=== PATIENT | male | born 1975 | race Caucasian/White ===

== ENCOUNTER 2016-07-16 08:25 | Inpatient (IN) | payer SELFPAY ==
[~2016-07-16] VITALS: Ht 167.6 cm; Wt 83.1 kg
[2016-07-16] MEDS: SODIUM CHLOR 0.9% 1000 ML INJ 1,000 ML IV SCH ×2 (03:40→12:51)
[2016-07-16 08:29] VITALS: BP 138/75; PULSE 99; RESP 20; TEMP 98.6; O2SAT 99
[2016-07-16] MEDS ORDERED: NOVOLOGMXP SQ (08:44)
[2016-07-16] MEDS ORDERED: DIPHTH/TETANUS/ACEL PERTUSSIS (BOOSTER) 0.5 ML VIAL/PFS IM ONE (09:15)
--- NOTE | 2016-07-16 09:21 | PD ---
HPI Chief Complaint: Injury Time Seen by Provider: 08:43 Travel History International Travel<30 days: No Contact w/Intl Traveler<30days: No Traveled to known affect area: No History of Present Illness HPI This is a 40-year-old man with a history of diabetes, previous right great toe amputation, presents emergent arm worsening right foot pain and swelling redness after stepping on a nail couple days ago. States about 4 days ago he stepped on a nail and when about a half centimeter or centimeter into his foot. He is visiting from [place]. Takes insulin for his diabetes states his blood sugars been about the 250s or so over the past couple days. He had fevers and chills last night. Over the past 2 days his nose worsening pain redness and swelling in the foot. History Past Medical History Narrative Medical Diabetes Tetanus Vaccination: Unknown Social History Alcohol Use: Yes (OCCASIONAL) Tobacco Use: No Allergies-Medications (Allergen,Severity, Reaction): Coded Allergies: No Known Allergies (Unverified , 07/16/16) Reported Meds & Prescriptions Reported Meds & Active Scripts Active Reported Novolog Mix 70-30 Inj (Insulin Aspart Prota 70%/Aspart 30%) 1,000 Unit/10 Ml Vial 15 Units SQ BIDAC Review of Systems Except as stated in HPI: all other systems reviewed are Neg Physical Exam Narrative GENERAL: 40-year-old man, nontoxic, no acute distress. SKIN: Warm and dry. HEAD: Atraumatic. Normocephalic. EYES: Pupils equal and round. No scleral icterus. No injection or drainage. ENT: No nasal bleeding or discharge. Mucous membranes pink and moist. NECK: Trachea midline. No JVD. CARDIOVASCULAR: Regular rate and rhythm. No murmur appreciated. RESPIRATORY: No accessory muscle use. Clear to auscultation. Breath sounds equal bilaterally. GASTROINTESTINAL: Abdomen soft, non-tender, nondistended. Hepatic and splenic margins not palpable. MUSCULOSKELETAL: Focused examination of the right lower extremity reveals diffuse erythema and swelling of the right foot around the dorsum of the foot and the base of the foot. He has had a right great toe amputation. There is a puncture wound near the area of the amputation scar with purulent drainage. Probing with a Q-tip shows that he can probe superficially under the skin about a centimeter or so toward the area of fluctuance. Does not appear to probe deep towards the bone. There is clear fluid easily expressed from the wound. There is a lot of generalized edema and swelling in the foot. Patient appears to have significant neuropathy and does not have much tenderness or pain. Foot is warm. NEUROLOGICAL: Awake and alert. No obvious cranial nerve deficits. Motor grossly within normal limits. Normal speech. PSYCHIATRIC: Appropriate mood and affect; insight and judgment normal. Data Data Last Documented VS Vital Signs Date Time Temp Pulse Resp B/P Pulse Ox O2 Delivery O2 Flow Rate FiO2 07/16/16 08:37 99 20 99 07/16/16 08:29 98.6 138/75 Orders Foot, Complete ([id number]) (07/16/16 ) Complete Blood Count With Diff (07/16/16 09:08) Comprehensive Metabolic Panel (07/16/16 09:08) Act Partial Throm Time (Ptt) (07/16/16 09:08) Prothrombin Time / Inr (Pt) (07/16/16 09:08) Iv Access Insert/Monitor (07/16/16 09:08) Westergren Sedimentation Rate (07/16/16 09:08) C-Reactive Protein (Crp) (07/16/16 09:08) Wound Culture And Gram Stain (07/16/16 09:08) Gkik-Sqs-Kylnmr (Booster) Inj (Boostrix (07/16/16 09:15) Acetaminophen (Tylenol) (07/16/16 10:00) Vancomycin Inj (Vancomycin Inj) (07/16/16 10:00) Piperacil-Tazo 4.5 Gm Premix (Zosyn 4.5 (07/16/16 10:00) Admit Order (Ed Use Only) (07/16/16 ) Labs Laboratory Tests Test 07/16/16 09:13 White Blood Count 10.1 TH/MM3 Red Blood Count 4.38 MIL/MM3 Hemoglobin 12.8 GM/DL Hematocrit 36.5 % Mean Corpuscular Volume 83.3 FL Mean Corpuscular Hemoglobin 29.1 PG Mean Corpuscular Hemoglobin 34.9 % Concent Red Cell Distribution Width 12.4 % Platelet Count 318 TH/MM3 Mean Platelet Volume 8.2 FL Neutrophils (%) (Auto) 64.7 % Lymphocytes (%) (Auto) 22.9 % Monocytes (%) (Auto) 10.6 % Eosinophils (%) (Auto) 0.9 % Basophils (%) (Auto) 0.9 % Neutrophils # (Auto) 6.5 TH/MM3 Lymphocytes # (Auto) 2.3 TH/MM3 Monocytes # (Auto) 1.1 TH/MM3 Eosinophils # (Auto) 0.1 TH/MM3 Basophils # (Auto) 0.1 TH/MM3 CBC Comment DIFF FINAL Differential Comment Erythrocyte Sedimentation Rate 71 mm/hr Prothrombin Time 10.0 SEC Prothromb Time International 0.9 RATIO Ratio Activated Partial 28.0 SEC Thromboplast Time Sodium Level 133 MEQ/L Potassium Level 4.1 MEQ/L Chloride Level 96 MEQ/L Carbon Dioxide Level 29.1 MEQ/L Anion Gap 8 MEQ/L Blood Urea Nitrogen 10 MG/DL Creatinine 0.86 MG/DL Estimat Glomerular Filtration 98 ML/MIN Rate Random Glucose 294 MG/DL Calcium Level 9.1 MG/DL Total Bilirubin 0.5 MG/DL Aspartate Amino Transf 14 U/L (AST/SGOT) Alanine Aminotransferase 28 U/L (ALT/SGPT) Alkaline Phosphatase 230 U/L C-Reactive Protein 21.00 MG/DL Total Protein 8.0 GM/DL Albumin 2.9 GM/DL [facility] Medical Decision Making Medical Screen Exam Complete: Yes Emergency Medical Condition: Yes Interpretation(s) CBC remarkable for mild anemia. Sedimentation rate 71. CMP unremarkable. CRP 21 Alkaline phosphatase 2:30 Coags unremarkable Right foot x-ray: Findings concerning for soft tissue infection or septicemia his emphysema swelling present. Possibly infectious with gas-forming organism was not excluded. Differential Diagnosis Infection, edema, osteomyelitis, other Narrative Course Medical decision making INITIAL: This Is a 40-year-old man who presents to the emergency department complaining of posterior wound with infection to the right foot, history of what seems to be pretty significant diabetes or previous dictations and neuropathy. Is a lot of erythema redness and swelling and he had fevers last night concerning for worsening infection. We'll check labs, inflammatory markers, x-ray, wound culture, reassess. FINAL: 40-year-old male with diabetic foot infection after stepping on a nail. Soft tissue gas is seen in the foot this seems to correspond with the probing wound. Time course is not suggestive of a necrotizing acute soft tissue infection. I called and spoke with podiatry, they will consult on the patient. We'll continue IV antibiotics. Diagnosis Primary Impression: Diabetic infection of right foot Admitting Information Admitting Physician Requests: Admit Juan R Soares MD Jul 16, 2016 09:21
[2016-07-16 09:23] LABS: AUTOMATED NEUTROPHIL # 6.5 TH/MM3 (1.8-7.7); BASOPHIL # 0.1 TH/MM3 (0-0.2); BASOPHIL % 0.9 % (0.0-2.0); EOSINOPHIL # 0.1 TH/MM3 (0-0.4); EOSINOPHIL % 0.9 % (0.0-4.0); HEMATOCRIT 36.5 % (39.0-51.0); HEMO FLAGS DIFF FINAL; LYMPH % 22.9 % (9.0-44.0); LYMPHOCYTE # 2.3 TH/MM3 (1.0-4.8); MEAN CELL VOLUME 83.3 FL (80.0-100.0); MEAN CORPUSCULAR HEMOGLOBIN 29.1 PG (27.0-34.0); MEAN CORPUSCULAR HGB CONC 34.9 % (32.0-36.0); MONO % 10.6 % (0.0-8.0); NEUT % 64.7 % (16.0-70.0); PLATELET COUNT 318 TH/MM3 (150-450); RED BLOOD COUNT 4.38 MIL/MM3 (4.50-5.90); RED CELL DISTRIBUTION WIDTH 12.4 % (11.6-17.2); WHITE BLOOD COUNT 10.1 TH/MM3 (4.0-11.0)
--- NOTE | 2016-07-16 09:35 | RADRPT ---
EXAM DATE/TIME: 07/16/2016 09:23 [facility] COMPARISON: No previous studies available for comparison. INDICATIONS : Right foot swelling, stepped on nail 5 days ago, swelling for 9 days. MEDICAL HISTORY : None. SURGICAL HISTORY : Great toe amputation 1 year ago. ENCOUNTER: Initial ACUITY: 1 week PAIN SCORE: 8/10 LOCATION: Right foot. FINDINGS: Bone density is normal. Joint space which are intact. Remote deformities of the second through fifth metatarsals are noted with exostoses present. Previous amputation of the first digit at the mid metat arsal level. There is soft tissue emphysema seen plantar aspect of the foot and soft tissue swelling. A punctate radiodensity within the plantar soft tissues is noted on the lateral view in this area me asuring 1.6 mm. The findings are concerning for soft tissue infection and the possibility of infectio n with gas-forming organism is not excluded. No evidence for osteitis. CONCLUSION: Findings are concerning for soft tissue infection with subcutaneous emphysema and swelling present. T he possibility of infection with gas-forming organism is not excluded. Jacinto Otto MD on July 16, 2016 at 9:32 Board Certified Radiologist. This report was verified electronically.
[2016-07-16 09:38] LABS: INTERNATIONAL NORMALIZED RATIO 0.9 RATIO
[2016-07-16 09:45] LABS: ANION GAP 8 MEQ/L (5-15); AST (GOT) 14 U/L (15-37); BICARBONATE 29.1 MEQ/L (21.0-32.0); BLOOD UREA NITROGEN 10 MG/DL (7-18); CHLORIDE 96 MEQ/L (98-107); GLOMERULAR FILTRATION RATE 98 ML/MIN (>89); POTASSIUM 4.1 MEQ/L (3.5-5.1); SODIUM (NA) 133 MEQ/L (136-145)
[2016-07-16 09:54] LABS: ALKALINE PHOSPHATASE 230 U/L (45-117); ALT (GPT) 28 U/L (12-78); TOTAL BILIRUBIN ADULT 0.5 MG/DL (0.2-1.0)
[2016-07-16] MEDS ORDERED: ACETAMINOPHEN 325 MG TAB PO ONE (10:00)
[2016-07-16] MEDS ORDERED: VANCOMYCIN INJ 1,000 MG in SODIUM CHLOR 0.9% 250 ML INJ 250 ML IV ONE (10:00)
[2016-07-16] MEDS ORDERED: PIPERACIL-TAZO 4.5 GM PREMIX 100 ML IV ONE (10:00)
--- NOTE | 2016-07-16 10:14 | HHI.HP ---
HPI Service Family Medicine Primary Care Physician No Primary Care Physician Admission Diagnosis diabetic foot infection Diagnoses: International Travel<30 Days: No Contact w/Intl Traveler<30days: No Known Affected Area: No History of Present Illness This is a 40 year old male with diabetes who presents 5 days after stepping on a nail in his right foot. He states the nail went into his foot about 0.5 inches. Since that time, he has taken ibuprofen prn for pain control; he did not seek care after stepping on the nail. The ibuprofen helped relieve his pain. However, yesterday, his pain became a sharp 10/10 constant pain. Additionally, he started having fevers and chills subjectively. He noted brownish fluid coming out of the puncture wound. Additionally, he has been having increased swelling. No n/v/d, chest pain, shortness of breath. He has had DM for over 10 years. He takes 15 U bid of 70/30 insulin. He states his sugar normally runs b/w 125-180. He had his right great toe amputated a few years ago b/c he had a work accident which caused an infection in his toe. He has good feeling in his feet. (Haider Mahoney MD R2) Review of Systems Constitutional: COMPLAINS OF: Fever, Chills Eyes: DENIES: Blurred vision, Diplopia Ears, nose, mouth, throat: DENIES: Tinnitus, Hearing loss Respiratory: DENIES: Cough, Shortness of breath Cardiovascular: DENIES: Chest pain, Palpitations Gastrointestinal: DENIES: Abdominal pain, Constipation, Diarrhea Genitourinary: DENIES: Urgency, Hematuria, Dysuria Neurologic: DENIES: Abnormal gait, Headache Psychiatric: DENIES: Anxiety, Confusion (Haider Mahoney MD R2) Past Family Social History Past Medical History DM Past Surgical History Right great toe amputation Reported Medications Reported Meds & Active Scripts Active Reported Novolog Mix 70-30 Inj (Insulin Aspart Prota 70%/Aspart 30%) 1,000 Unit/10 Ml Vial 15 Units SQ BIDAC (Haider Mahoney MD R2) Allergies: Coded Allergies: No Known Allergies (Unverified , 07/16/16) Active Ordered Medications Active Medications Acetaminophen (Tylenol) 650 mg Q4H PRN PO; Start 07/16/16 at 11:30 Acetaminophen 650 mg 650 mg ONCE ONCE PO Last administered on 07/16/16t 10:23; Admin Dose 650 MG; Start 07/16/16 at 10:00; Stop 07/16/16 at 10:01; Status DC Acetaminophen/ Hydrocodone Bitart ([place] 5-325 Mg) 1 tab Q4H PRN PO Last administered on 07/16/16 15:43; Admin Dose 1 TAB; Start 07/16/16 at 13:15 Acetaminophen/ Hydrocodone Bitart ([place] 5-325 Mg) 2 tab Q6H PRN PO; Start 07/16/16 at 13:15 Dextrose (D50w (Vial) Inj) 25 ml UNSCH PRN IV PUSH; Start 07/16/16 at 12:45 Diphtheria/ Tetanus/Acell Pertussis (Boostrix Inj) 0.5 ml ONCE ONCE IM Last administered on 07/16/16 09:33; Admin Dose 0.5 ML; Start 07/16/16 at 09:15; Stop 07/16/16 at 09:16; Status DC Glucagon (Glucagon Inj) 1 mg UNSCH PRN OTHER; Start 07/16/16 at 12:45 Insulin Detemir (Levemir Inj) 7 units Q12HR SQ; Start 07/16/16 at 21:00 IV Flush (NS Flush) 2 ml BID FLUSH; Start 07/16/16 at 21:00 IV Flush (NS Flush) 2 ml UNSCH PRN FLUSH; Start 07/16/16 at 11:30 Ketorolac Tromethamine (Toradol Inj) 30 mg Q6H PRN IVP Last administered on 07/16 15:48; Admin Dose 30 MG; Start 07/16/16 at 13:15; Stop 07/21/16 at 13:14 Miscellaneous Information SPECIFIC LAB TO BE VENU... ONCE ONCE XX; Start at 08:45; Stop 07/18/16 at 08:46 Morphine Sulfate (Morphine Inj) 2 mg Q3H PRN IV PUSH; Start 07/16/16 at 13:15 Naloxone HCl (Narcan Inj) 0.4 mg UNSCH PRN IV; Start 07/16/16 at 13:15; Stop 07/16/16 at 13:24; Status DC Naloxone HCl 0.4 mg 0.4 mg UNSCH PRN IV; Start 07/16/16 at 11:30 Ondansetron HCl (Zofran Inj) 4 mg Q6H PRN IVP; Start 07/16/16 at 11:30 Pharmacy Profile Note 0 ml @ 0 mls/hr UNSCH OTHER; Start 07/16/16 at 11:30 Piperacillin Sod/ Tazobactam Sod 50 ml @ 100 mls/hr Q6H IV; Start 07/16/16 at 18 :00 Piperacillin Sod/ Tazobactam Sod 100 ml @ 200 mls/hr ONCE ONCE IV Last administered on 07/16/16 10:00; Admin Dose 200 MLS/HR; Start 07/16/16 at 10:00; Stop 07/16/16 at 10:29; Status DC Sodium Chloride (NS 1000 ml Inj) 1,000 ml @ 100 mls/hr Q10H IV Last administered on 07/16/16 12:51; Admin Dose 100 MLS/HR; Start 07/16/16 at 12:00 Vancomycin HCl 1000 mg/Sodium Chloride 250 ml @ 250 mls/hr ONCE ONCE IV Last administered on 07/16/16 10:24; Admin Dose 250 MLS/HR; Start 07/16/16 at 10:00; Stop 07/16/16 at 10:59; Status DC Vancomycin HCl/ Sodium Chloride (Vancomycin Inj/ NS 250 ml Inj) 262.5 ml @ 262.5 mls/ hr Q12H IV; Start 07/16/16 at 21:00 Family History Mom: DM Dad: healthy Children: healthy Social History Tobacco: never Alcohol: 2 beers a week Works for [employer]. Lives with and 3 kids. Lives in [place], will be here for 1 month. (Haider Mahoney MD R2) Physical Exam Vital Signs Vital Signs Date Time Temp Pulse Resp B/P Pulse Ox O2 Delivery O2 Flow Rate FiO2 07/16/16 08:37 99 20 99 07/16/16 08:29 98.6 99 20 138/75 99 Physical Exam GENERAL: This is a well-nourished, well-developed patient, in no apparent distress. SKIN: Right foot swollen, hot, 1 cm opening under first metatarsal of right foot. Non erythematous, but it is draining slightly. HEAD: Atraumatic. Normocephalic. No temporal or scalp tenderness. EYES: Pupils equal round and reactive. Extraocular motions intact. No scleral icterus. No injection or drainage. ENT: Nose without bleeding, purulent drainage or septal hematoma. Throat without erythema, tonsillar hypertrophy or exudate. Uvula midline. Airway patent. NECK: Trachea midline. No JVD or lymphadenopathy. Supple, nontender, no meningeal signs. CARDIOVASCULAR: Regular rate and rhythm without murmurs, gallops, or rubs. RESPIRATORY: Clear to auscultation. Breath sounds equal bilaterally. No wheezes , rales, or rhonchi. GASTROINTESTINAL: Abdomen soft, non-tender, nondistended. No hepato-splenomegaly , or palpable masses. No guarding. MUSCULOSKELETAL: Extremities without clubbing, cyanosis, or edema. No joint tenderness, effusion, or edema noted. No calf tenderness. Negative Homans sign bilaterally. NEUROLOGICAL: Awake and alert. Cranial nerves II through XII intact. Motor and sensory grossly within normal limits. Five out of 5 muscle strength in all muscle groups. Normal speech. Laboratory Laboratory Tests Test 07/16/16 09:13 White Blood Count 10.1 Red Blood Count 4.38 Hemoglobin 12.8 Hematocrit 36.5 Mean Corpuscular Volume 83.3 Mean Corpuscular Hemoglobin 29.1 Mean Corpuscular Hemoglobin 34.9 Concent Red Cell Distribution Width 12.4 Platelet Count 318 Mean Platelet Volume 8.2 Neutrophils (%) (Auto) 64.7 Lymphocytes (%) (Auto) 22.9 Monocytes (%) (Auto) 10.6 Eosinophils (%) (Auto) 0.9 Basophils (%) (Auto) 0.9 Neutrophils # (Auto) 6.5 Lymphocytes # (Auto) 2.3 Monocytes # (Auto) 1.1 Eosinophils # (Auto) 0.1 Basophils # (Auto) 0.1 CBC Comment DIFF FINAL Differential Comment Erythrocyte Sedimentation Rate 71 Prothrombin Time 10.0 Prothromb Time International 0.9 Ratio Activated Partial 28.0 Thromboplast Time Sodium Level 133 Potassium Level 4.1 Chloride Level 96 Carbon Dioxide Level 29.1 Anion Gap 8 Blood Urea Nitrogen 10 Creatinine 0.86 Estimat Glomerular Filtration 98 Rate Random Glucose 294 Calcium Level 9.1 Total Bilirubin 0.5 Aspartate Amino Transf 14 (AST/SGOT) Alanine Aminotransferase 28 (ALT/SGPT) Alkaline Phosphatase 230 C-Reactive Protein 21.00 Total Protein 8.0 Albumin 2.9 Date/Time Procedure Status Source Growth 07/16/16 09:30 Gram Stain Received Wound Foot Pending 07/16/16 09:30 Wound Culture Received Wound Foot Pending (Haider Mahoney MD R2) Result Diagram: 07/16/1613 07/16/1613 Assessment and Plan Assessment and Plan 40 year old male with DM who presents after stepping on a nail 5 days ago. He will be admitted for podiatry consult, IV abx, pain management Code Status full Discussed Condition With Dr. Astrid Tristan (Haider Mahoney MD R2) Attending Attestation Patient seen and examined. Case reviewed and discussed with the resident team. Agree with plan of care as discussed with me and documented in the resident note. (Astrid Mahoney MD) Problem List: (1) Diabetic infection of right foot Status: Acute Plan: Case discussed with podiatry (Dr. Ramirez) by the ER doctor. -Podiatry consulted (Dr. Ramirez) -Tetanus vaccine given -Continue Vanc and zosyn (started /) -Repeat labs in AM -Pain control: toradol 30 mg q6 scheduled; norco 1 tab PO pain 1-5; norco 2 tabs PO pain 6-10; morphine 2 mg breakthrough pain -Wound cultures pending (2) Diabetes Status: Acute Plan: Random glucose of 294; likely patient has poor glucose control although he states his sugars are normally 125-[address] levemir 7 U q12 hours Sliding scale insulin (3) FEN/PPX Status: Acute Plan: Fluids: NS at 100 ml/hr Electrolytes: monitor and replace prn Nutrition: diabetic diet PPX: bilateral SCDs (Haider Mahoney MD R2) Physician Certification 2 Midnight Certification Type: Admission for Inpatient Services Order for Inpatient Services The services are ordered in accordance with Medicare regulations or non- Medicare payer requirements, as applicable. In the case of services not specified as inpatient-only, they are appropriately provided as inpatient services in accordance with the 2-midnight benchmark. Estimated LOS (days): 2 days is the estimated time the patient will need to remain in the hospital, assuming treatment plan goals are met and no additional complications. Post-Hospital Plan: Home (Haider Mahoney MD R2) Problem Qualifiers (1) Diabetes: Qualified Code: E11.8 - Type 2 diabetes mellitus with complication, with long- term current use of insulin Haider Mahoney MD R2 Jul 16, 2016 10:13 Astrid Mahoney MD Jul 17, 2016 08:00
[2016-07-16 11:20] VITALS: BP 125/72; PULSE 91; RESP 18; O2SAT 96
[2016-07-16] MEDS ORDERED: ACETAMINOPHEN 325 MG TAB PO PRN (11:30)
[2016-07-16] MEDS ORDERED: NALOXONE HCL 0.4 MG/ML AMP IV PRN ×2 (11:30→13:15)
[2016-07-16] MEDS ORDERED: SODIUM CHLORIDE 0.9% FLUSH 5 ML FLUSH FLUSH PRN (11:30)
[2016-07-16] MEDS ORDERED: Vancomycin Consult Pharmacy 1 EA OTHER SCH (11:30)
--- NOTE | 2016-07-16 11:32 | HHI.FPPN ---
Subjective Remarks Pt. seen, examined and discussed with Drs. Mahoney and Kun. 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 He stepped on a nail puncturing his right foot, plantar surface and the distal right 1st metacarpal 5 days prior to admission. His pain was doing okay with ibuprofen but the last 2 days he had worse pain and drainage from the wound. Unable to walk, due to pain. When admitted to ED, pain 10:10, now 6:10. He was having fever and chills as well. One year ago he had an injury to his right great toe and this resulted in amputation. Tetanus shot one year ago. See H&P for this admission for additional details of past, family and social history. complete review of systems was obtained, and he has the pain in the right foot as noted, plus discomfort in the right shoulder for 2 days with ABduction, otherwise all systems negative. He is , lives with his and 3 kids. Strong family history of diabetes in mom, uncles, brother, dad is healthy. Nonsmoker, infrequent etoh, full code. Objective Vitals Vital Signs Date Time Temp Pulse Resp B/P Pulse Ox O2 Delivery O2 Flow Rate FiO2 07/16/16 08:37 99 20 99 07/16/16 08:29 98.6 99 20 138/75 99 Result Diagram: 07/16/16 0913 07/16/16 0913 Other Results Laboratory Tests Test 07/16/16 09:13 White Blood Count 10.1 TH/MM3 Red Blood Count 4.38 MIL/MM3 Hemoglobin 12.8 GM/DL Hematocrit 36.5 % Mean Corpuscular Volume 83.3 FL Mean Corpuscular Hemoglobin 29.1 PG Mean Corpuscular Hemoglobin 34.9 % Concent Red Cell Distribution Width 12.4 % Platelet Count 318 TH/MM3 Mean Platelet Volume 8.2 FL Neutrophils (%) (Auto) 64.7 % Lymphocytes (%) (Auto) 22.9 % Monocytes (%) (Auto) 10.6 % Eosinophils (%) (Auto) 0.9 % Basophils (%) (Auto) 0.9 % Neutrophils # (Auto) 6.5 TH/MM3 Lymphocytes # (Auto) 2.3 TH/MM3 Monocytes # (Auto) 1.1 TH/MM3 Eosinophils # (Auto) 0.1 TH/MM3 Basophils # (Auto) 0.1 TH/MM3 CBC Comment DIFF FINAL Differential Comment Erythrocyte Sedimentation Rate 71 mm/hr Prothrombin Time 10.0 SEC Prothromb Time International 0.9 RATIO Ratio Activated Partial 28.0 SEC Thromboplast Time Sodium Level 133 MEQ/L Potassium Level 4.1 MEQ/L Chloride Level 96 MEQ/L Carbon Dioxide Level 29.1 MEQ/L Anion Gap 8 MEQ/L Blood Urea Nitrogen 10 MG/DL Creatinine 0.86 MG/DL Estimat Glomerular Filtration 98 ML/MIN Rate Random Glucose 294 MG/DL Calcium Level 9.1 MG/DL Total Bilirubin 0.5 MG/DL Aspartate Amino Transf 14 U/L (AST/SGOT) Alanine Aminotransferase 28 U/L (ALT/SGPT) Alkaline Phosphatase 230 U/L C-Reactive Protein 21.00 MG/DL Total Protein 8.0 GM/DL Albumin 2.9 GM/DL Imaging Concerning for gas-forming organism, subcutaneous emphysema. Objective Remarks O. CONSTITUTIONAL/GEN: normally nourished, in some distress feeling pain 6:10 and chilled. EYES: conjunctiva normal, PERRLA, EOMI. ENT: Mouth and pharynx normal. NECK: thyroid midline, neck supple LUNGS: clear A-P, respiratory effort is normal. CARDIOVASCULAR: RR without murmur or gallop. No significant edema. GI/ABD: soft without masses, without organomegaly. BS+ : no CVA tenderness NEURO: No focal deficits. SKIN: color normal, no rashes noted. HEME/LYMPH: no bruising, petechia or significant adenopathy MUSC: back is normal in appearance. Right great toe surgically absent, significant swelling of the forefoot, +DP pulse, draining wound ball of the foot , ecchymosis of the forefoot. PSYCH/MENTAL STATUS: Alert and oriented x 3. A/P Assessment and Plan 40 yo male with puncture wound right foot 5 days ago, now with swelling , pain, drainage. Concern for gas-forming organism. Attending Attestation Patient seen and examined. Case reviewed and discussed with the resident team. Agree with plan of care as discussed with me and documented in the resident note. Astrid Mahoney MD Jul 16, 2016 11:32
--- NOTE | 2016-07-16 12:19 | PD.POD.CON ---
Patient Intake Chief Complaint Diabetic foot infection right foot Consult Requested by Dr. Astrid Mahoney Reason for Consult Evaluation and treatment of infected right foot Primary Care Physician No Primary Care Physician History of Present Illness Patient is a 40-year-old diabetic male visiting from [place]. 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 Approximate 5 days ago while walking on the beach she stepped on a nail. The foot became swollen and red and he presented to [place] this morning with an infected right foot. 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 States his blood sugars usually run pretty well. He was barefoot walking on the beach. Coded Allergies: No Known Allergies (Unverified , 07/16/16) Preferred Language to Discuss: Lithuanian Barriers to Learning: None Teaching Method: Discussion Vital Signs Date Time Temp Pulse Resp B/P Pulse Ox O2 Delivery O2 Flow Rate FiO2 07/16/16 11:20 91 18 125/72 96 Room Air 07/16/16 08:37 99 20 99 07/16/16 08:29 98.6 99 20 138/75 99 Pain scale used: 0-10 numeric scale Pain score: 2 Medications Current Medications Diphtheria/ Tetanus/Acell Pertussis (Boostrix Inj) 0.5 ml ONCE ONCE IM Last administered on 07/16/16 09:33; Start 07/16/16 at 09:15; Stop 07/16/16 at 09:16; Status DC Acetaminophen 650 mg 650 mg ONCE ONCE PO Last administered on 07/16/16 10:23; Start 07/16/16 at 10:00; Stop 07/16/16 at 10:01; Status DC Vancomycin HCl 1000 mg/Sodium Chloride 250 ml @ 250 mls/hr ONCE ONCE IV Last administered on 07/16/16 10:24; Start 07/16/16 at 10:00; Stop 07/16/16 at 10:59; Status DC Piperacillin Sod/ Tazobactam Sod 100 ml @ 200 mls/hr ONCE ONCE IV Last administered on 07/16/16 10:00; Start 07/16/16 at 10:00; Stop 07/16/16 at 10:29; Status DC Sodium Chloride (NS 1000 ml Inj) 1,000 ml @ 100 mls/hr Q10H IV ; Start 07/16/16 at 12:00 IV Flush (NS Flush) 2 ml UNSCH PRN FLUSH FLUSH AFTER USING IV ACCESS; Start 07/16/16 at 11:30 IV Flush (NS Flush) 2 ml BID FLUSH ; Start 07/16/16 at 21:00 Acetaminophen (Tylenol) 650 mg Q4H PRN PO TEMP>100.4F,PAIN1-10,IRRITABLE; Start 07/16/16 at 11:30 Ondansetron HCl (Zofran Inj) 4 mg Q6H PRN IVP NAUSEA OR VOMITING; Start at 11:30 Naloxone HCl 0.4 mg 0.4 mg UNSCH PRN IV SEE LABEL COMMENTS; Start 07/16/16 at 11 :30 Piperacillin Sod/ Tazobactam Sod 50 ml @ 100 mls/hr Q6H IV ; Start 07/16/16 at 18:00 Pharmacy Profile Note 0 ml @ 0 mls/hr UNSCH OTHER ; Start 07/16/16 at 11:30 Vancomycin HCl/ Sodium Chloride (Vancomycin Inj/ NS 250 ml Inj) 262.5 ml @ 262.5 mls/ hr Q12H IV ; Start 07/16/16 at 21:00 Miscellaneous Information SPECIFIC LAB TO BE ONCE ONCE XX ; Start at 08:45; Stop 07/18/16 at 08:46 Past, Family & Social History Past Medical History PFSH Reviewed: Yes Endocrine: REPORTS HX OF: Diabetes mellitus Neurologic: REPORTS HX OF: Peripheral neuropathy Past Surgical History Musculoskeletal: REPORTS HX OF: Other musculoskeletal srg (right hallux amputation) Review of Systems Constitutional: COMPLAINS OF: Fever Musculoskeletal: COMPLAINS OF: Deformaties Neurological: COMPLAINS OF: Numbness/tingling, Changes in sensation, Difficulty with balance Exam-Podiatry Constitutional General appearance: comfortable Nutritional status: overweight Orientation: alert and oriented x3 Dermatological Exam Skin Temp - Right: Hot Skin Texture - Right: Within Normal Limits Skin Elasticity - Right: Within Normal Limits Skin Tugor - Right: Within Normal Limits Hair Growth - Right: Absent Pigmentation - Right: Within Normal Limits Skin Temp - Left: Within Normal Limits Skin Texture - Left: Within Normal Limits Skin Elasticity - Left: Within Normal Limits Skin Tugor - Left: Within Normal Limits Hair Growth - Left: Absent Pigmentation - Left: Within Normal Limits Ulcers: Location/Measurements 1 cm opening under the first metatarsal of the right foot. It does probe to bone. There is some odor with serous drainage coming from the wound. Culture and sensitivity is pending. Vascular/Lymphatic Exam R Dorsails Pedis: Palpable L Dorsails Pedis: Palpable R Posterior Tibial: Palpable L Posterior Tibial: Palpable Neurologic Exam Present on right: Tingling, Paraesthesia Present on left: Tingling, Paraesthesia Sensation: Light touch: Dimished Pinprick: Dimished Proprioception: Dimished Vibratory: Dimished Musculoskeletal Exam Details Right hallux amputation Muscle Strength Dorsiflexion (Right): Normal Plantarflexion (Right): Normal Inversion (Right): Normal Eversion (Right): Normal Digital (Right): Normal Dorsiflexion (Left): Normal Plantarflexion (Left): Normal Inversion (Left): Normal Eversion (Left): Normal Digital (Left): Normal Foot Range of Motion Dorsiflexion (Right): Normal Plantarflexion (Right): Normal Inversion (Right): Normal Eversion (Right): Normal Digital (Right): Normal Dorsiflexion (Left): Normal Plantarflexion (Left): Normal Inversion (Left): Normal Eversion (Left): Normal Digital (Left): Normal Extremities Edema: Left lower extremity: none Right lower extremity: 2+, nonpitting, foot Lab and Radiology Results Laboratory Laboratory Tests Test 07/16/16 09:13 White Blood Count 10.1 TH/MM3 Red Blood Count 4.38 MIL/MM3 Hemoglobin 12.8 GM/DL Hematocrit 36.5 % Mean Corpuscular Volume 83.3 FL Mean Corpuscular Hemoglobin 29.1 PG Mean Corpuscular Hemoglobin 34.9 % Concent Red Cell Distribution Width 12.4 % Platelet Count 318 TH/MM3 Mean Platelet Volume 8.2 FL Neutrophils (%) (Auto) 64.7 % Lymphocytes (%) (Auto) 22.9 % Monocytes (%) (Auto) 10.6 % Eosinophils (%) (Auto) 0.9 % Basophils (%) (Auto) 0.9 % Neutrophils # (Auto) 6.5 TH/MM3 Lymphocytes # (Auto) 2.3 TH/MM3 Monocytes # (Auto) 1.1 TH/MM3 Eosinophils # (Auto) 0.1 TH/MM3 Basophils # (Auto) 0.1 TH/MM3 CBC Comment DIFF FINAL Differential Comment Erythrocyte Sedimentation Rate 71 mm/hr Laboratory Tests Test 07/16/16 09:13 Sodium Level 133 MEQ/L Potassium Level 4.1 MEQ/L Chloride Level 96 MEQ/L Carbon Dioxide Level 29.1 MEQ/L Anion Gap 8 MEQ/L Blood Urea Nitrogen 10 MG/DL Creatinine 0.86 MG/DL Estimat Glomerular Filtration 98 ML/MIN Rate Random Glucose 294 MG/DL Calcium Level 9.1 MG/DL Total Bilirubin 0.5 MG/DL Aspartate Amino Transf 14 U/L (AST/SGOT) Alanine Aminotransferase 28 U/L (ALT/SGPT) Alkaline Phosphatase 230 U/L C-Reactive Protein 21.00 MG/DL Total Protein 8.0 GM/DL Albumin 2.9 GM/DL Microbiology Date/Time Procedure Status Source Growth 07/16/16 09:30 Gram Stain Received Wound Foot Pending 07/16/16 09:30 Wound Culture Received Wound Foot Pending Assessment/Plan Problem List: (1) Diabetic infection of right foot Status: Acute (2) Diabetes type 2, uncontrolled Status: Chronic Additional Plans & Procedures PLAN: Ordered Maxorb extra AG dressings with packing for to right foot wound. No baths or showers. Sponge bathe only. PT for crutch training or walker training nonweightbearing right foot. Nuclear med bone scan and right foot Problem Qualifiers (1) Diabetes type 2, uncontrolled: Qualified Code: E11.42 - Uncontrolled type 2 diabetes mellitus with diabetic polyneuropathy, with long-term current use of insulin Himanshu Ramirez DPM Jul 16, 2016 12:18
[2016-07-16] MEDS ORDERED: GLUCAGON 1 MG/ML VIAL OTHER PRN (12:45)
[2016-07-16] MEDS ORDERED: DEXTROSE 50% IN WATER 50 ML VIAL(D50) IV PUSH PRN (12:45)
[2016-07-16] MEDS ORDERED: ACETAMINOPHEN/HYDROcodone 325 MG/5 MG TAB PO PRN (13:15)
[2016-07-16] MEDS ORDERED: KETOROLAC TROMETHAMINE 30 MG/ML (IVP) VIAL IVP PRN (13:15)
[2016-07-16] MEDS ORDERED: MORPHINE SULFATE 8 MG/ML INJ IV PUSH PRN (13:15)
[2016-07-16 15:54] VITALS: BP 142/97; PULSE 94; RESP 20; TEMP 98.4; O2SAT 95
[2016-07-16] MEDS: INSULIN ASPART SUPPLEMENTAL SCALE SQ SCH ×2 (17:17→20:39)
[2016-07-16] MEDS: PIPERACIL-TAZO 3.375 GM PREMIX 50 ML IV SCH ×2 (17:17→23:18)
[2016-07-16 20:00] VITALS: BP 119/72; PULSE 91; RESP 16; TEMP 98.2; O2SAT 97
[2016-07-16] MEDS: SODIUM CHLORIDE 0.9% FLUSH 5 ML FLUSH FLUSH SCH (20:37)
[2016-07-16] MEDS: VANCOMYCIN INJ 1,250 MG in SODIUM CHLOR 0.9% 250 ML INJ 250 ML IV SCH (20:38)
[2016-07-16] MEDS: INSULIN DETEMIR 100 UNITS/ML VIAL SQ SCH (20:39)
[2016-07-16] MEDS: ACETAMINOPHEN/HYDROcodone 325 MG/5 MG TAB PO PRN (20:45)
[2016-07-16] MEDS: KETOROLAC TROMETHAMINE 30 MG/ML (IVP) VIAL IVP SCH (21:49)
[2016-07-17] VITALS: BP 98/60; PULSE 89; RESP 16; TEMP 97.9; O2SAT 97
[2016-07-17] MEDS: KETOROLAC TROMETHAMINE 30 MG/ML (IVP) VIAL IVP SCH ×4 (03:40→22:17)
[2016-07-17] MEDS: ACETAMINOPHEN/HYDROcodone 325 MG/5 MG TAB PO PRN ×3 (03:40→17:09)
[2016-07-17 04:00] VITALS: BP 126/86; PULSE 78; RESP 16; TEMP 98; O2SAT 97
[2016-07-17] MEDS: PIPERACIL-TAZO 3.375 GM PREMIX 50 ML IV SCH ×4 (05:47→23:41)
[2016-07-17] MEDS: INSULIN ASPART SUPPLEMENTAL SCALE SQ SCH ×4 (05:58→20:28)
[2016-07-17 07:53] LABS: AUTOMATED NEUTROPHIL # 6.8 TH/MM3 (1.8-7.7); BASOPHIL # 0.1 TH/MM3 (0-0.2); BASOPHIL % 0.6 % (0.0-2.0); EOSINOPHIL # 0.2 TH/MM3 (0-0.4); HEMATOCRIT 33.1 % (39.0-51.0); HEMO FLAGS DIFF FINAL; LYMPH % 23.8 % (9.0-44.0); LYMPHOCYTE # 2.5 TH/MM3 (1.0-4.8); MEAN CELL VOLUME 83.7 FL (80.0-100.0); MEAN CORPUSCULAR HEMOGLOBIN 28.5 PG (27.0-34.0); MEAN CORPUSCULAR HGB CONC 34.1 % (32.0-36.0); MONO % 8.6 % (0.0-8.0); PLATELET COUNT 310 TH/MM3 (150-450); RED BLOOD COUNT 3.95 MIL/MM3 (4.50-5.90); RED CELL DISTRIBUTION WIDTH 12.3 % (11.6-17.2); WHITE BLOOD COUNT 10.5 TH/MM3 (4.0-11.0)
[2016-07-17 08:00] VITALS: BP 113/80; PULSE 74; RESP 18; TEMP 96.9; O2SAT 96
[2016-07-17 08:17] LABS: BICARBONATE 29.5 MEQ/L (21.0-32.0); POTASSIUM 3.9 MEQ/L (3.5-5.1)
[2016-07-17] MEDS: INSULIN DETEMIR 100 UNITS/ML VIAL SQ SCH ×2 (09:00→20:29)
[2016-07-17] MEDS: SODIUM CHLORIDE 0.9% FLUSH 5 ML FLUSH FLUSH SCH ×2 (09:00→20:29)
[2016-07-17] MEDS: VANCOMYCIN INJ 1,250 MG in SODIUM CHLOR 0.9% 250 ML INJ 250 ML IV SCH ×2 (09:14→20:28)
--- NOTE | 2016-07-17 10:13 | HHI.FPPN ---
Subjective Remarks No acute events overnight. Afebrile, vital signs stable. Patient does not complain of pain in his foot. He continues to complain of pain in his right shoulder with abduction. (Cordelia Gutierrez MD R3) Objective Vitals Vital Signs Date Time Temp Pulse Resp B/P Pulse Ox O2 Delivery O2 Flow Rate FiO2 07/17/16 08:00 96.9 74 18 113/80 96 07/17/16 04:00 98.0 78 16 126/86 97 07/17/16 00:00 97.9 89 16 98/60 97 07/16/16 20:00 98.2 91 16 119/72 97 07/16/16 15:54 98.4 94 20 142/97 95 07/16/16 12:50 18 07/16/16 11:20 91 18 125/72 96 Room Air I/O 07/16/16 07/16/16 07/16/16 07/17/16 07/17/16 07/17/16 07:00 15:00 23:00 07:00 15:00 23:00 Intake Total 1660 ml Balance 1660 ml Intake Oral 240 ml IV Total 1420 ml # Voids 1 2 (Cordelia Gutierrez MD R3) Result Diagram: 07/17/16 0631 07/17/16 0631 Objective Remarks Gen.: No acute distress Head: Normocephalic. Atraumatic. EENT: Pupils equal round and reactive to light. Nose without drainage. Airway intact. Throat without injection. Cardiovascular: Regular rate and rhythm. No murmurs, rubs or gallops. Respiratory: Lungs clear to auscultation bilaterally. No wheezes or rhonchi. Abdomen: Soft, nontender, nondistended. No peritoneal signs. Musculoskeletal: No gross deformities. No edema. Surgical absence of right great toe. Wound on right foot dressed, dressing clean/dry/intact. Skin: No obvious rashes or erythema. Neuro: Sensory and motor grossly intact. Cranial nerves II through XII grossly intact. Psych: Appropriate mood and affect (Cordelia Gutierrez MD R3) A/P Assessment and Plan 40 yo male with puncture wound right foot 5 days ago, now with swelling , pain, drainage. Discharge Planning Pending podiatry recommendations (Cordelia Gutierrez MD R3) Attending Attestation Patient seen and examined. Case reviewed and discussed with the resident team. Agree with plan of care as discussed with me and documented in the resident note. (Astrid Mahoney MD) Problem List: (1) Diabetic infection of right foot Status: Acute Plan: Case discussed with podiatry (Dr. Ramirez) by the ER doctor. -Podiatry consulted (Dr. Ramirez) -Tetanus vaccine given -Continue Vanc and zosyn (started 1/2) -Pain control: toradol 30 mg q6 scheduled; norco 1 tab PO pain 1-5; norco 2 tabs PO pain 6-10; morphine 2 mg breakthrough pain -Wound cultures pending -Gram stain of wound shows many gram-positive cocci in pairs and chains with moderate gram-negative rods -WBC scan significant for osteomyelitis, awaiting Podiatry recommendations (2) Shoulder pain Status: Acute Plan: Patient with right shoulder pain on abduction. He believes it may be from the way that he sleeps. Shoulder x-ray pending (3) Diabetes Status: Acute Plan: Random glucose of 289; likely patient has poor glucose control although he states his sugars are normally 125-180 Increase Levemir to 10 units every 12 hours Sliding scale insulin (4) FEN/PPX Status: Acute Plan: Fluids: Hep-Lock IV Electrolytes: monitor and replace prn Nutrition: diabetic diet PPX: bilateral SCDs (Cordelia Gutierrez MD R3) Problem Qualifiers (1) Diabetes: Qualified Code: E11.8 - Type 2 diabetes mellitus with complication, with long- term current use of insulin Cordelia Gutierrez MD R3 Jul 17, 2016 10:12 Astrid Mahoney MD Jul 17, 2016 14:19
[2016-07-17 12:48] VITALS: BP 133/83; PULSE 100; RESP 20; TEMP 98.7; O2SAT 98
--- NOTE | 2016-07-17 13:01 | RADRPT ---
EXAM DATE/TIME: 07/16/2016 14:46 [facility] COMPARISON: No previous studies available for comparison. INDICATIONS : Osteomyelitis of right foot. Right foot swelling after stepping on a nail five days ago. DOSE: 20.2 mCi Tc99m Ceretec labeled white blood cells IV SPECT IMAGIN hrs, 20 hrs IMAGNG: SPECT/CT imaging with fusion was performed. RADIATION DOSE: 4.46 CTDIvol (mGy) ; Multiple Day Study MEDICAL HISTORY : Diabetes mellitus type 2. SURGICAL HISTORY : Right hallux amputation. ENCOUNTER: Initial ACUITY: 4 - 6 days PAIN SCALE: 6/10 LOCATION: Right foot. TECHNIQUE: Following the in vitro labeling of autologous white cells and reinjection, whole body scan was perfor med at the specified times. SPECT imaging was performed at the specified time in sagittal, axial and coronal planes. Attenuation correction was performed with the computed tomography and both the atten uation correction and non-attenuation corrected data sets were reviewed. FINDINGS: CT images reveal air within the marrow cavity of the remaining first metatarsal as well as air within the soft tissues of the medial foot near the site of amputation. There is abnormal white blood cell accumulation within the marrow cavity of the first metatarsal and in the adjacent soft tissues charac teristic of osteomyelitis and cellulitis of the medial right foot and first metatarsal. There is some mild white blood cell activity around a chronic healing fracture of the proximal second metatarsal a nd around some degenerative change in the left foot. No drainable abscess is identified. CONCLUSION: 1. Abnormal air in both the soft tissues of the medial right foot and within the marrow cavity of the first metatarsal which has been amputated distally. There is intense white blood cell activity in th e medial right foot and first metatarsal. The findings are characteristic of osteomyelitis of the ent minor remaining first metatarsal and adjacent cellulitis. 2. Iefn-jz-dvryxbuj white blood cell activity is also present around a chronic healing fracture of th e proximal second metatarsal. Molina Ferrell MD on July 17, 2016 at 12:48 Board Certified Radiologist. This report was verified electronically.
--- NOTE | 2016-07-17 13:18 | PD.PN.STU ---
Subjective Remarks No new complaints overnight. He states he has no pain in his foot currently. He does note to have some continued discomfort in his right shoulder with abduction. Objective Vitals Vital Signs Date Time Temp Pulse Resp B/P Pulse Ox O2 Delivery O2 Flow Rate FiO2 07/17/16 08:00 96.9 74 18 113/80 96 07/17/16 04:00 98.0 78 16 126/86 97 07/17/16 00:00 97.9 89 16 98/60 97 07/16/16 20:00 98.2 91 16 119/72 97 07/16/16 15:54 98.4 94 20 142/97 95 I/O 07/16/16 07/16/16 07/16/16 07/17/16 07/17/16 07/17/16 06:59 14:59 22:59 06:59 14:59 22:59 Intake Total 1660 ml 480 ml Balance 1660 ml 480 ml Intake Oral 240 ml 480 ml IV Total 1420 ml # Voids 1 2 1 Result Diagram: 07/17/16 0631 07/17/16 0631 Other Results Laboratory Tests Test 07/16/16 07/17/16 09:13 06:31 Red Blood Count 4.38 MIL/MM3 3.95 MIL/MM3 (4.50-5.90) (4.50-5.90) Hemoglobin 12.8 GM/DL 11.3 GM/DL (13.0-17.0) (13.0-17.0) Hematocrit 36.5 % 33.1 % (39.0-51.0) (39.0-51.0) Monocytes (%) (Auto) 10.6 % 8.6 % (0.0-8.0) (0.0-8.0) Monocytes # (Auto) 1.1 TH/MM3 (0-0.9) Erythrocyte Sedimentation Rate 71 mm/hr (0-15) Sodium Level 133 MEQ/L 135 MEQ/L (136-145) (136-145) Chloride Level 96 MEQ/L 97 MEQ/L (98-107) (98-107) Random Glucose 294 MG/DL 289 MG/DL (74-106) (74-106) Aspartate Amino Transf 14 U/L (15-37) (AST/SGOT) Alkaline Phosphatase 230 U/L (45-117) C-Reactive Protein 21.00 MG/DL (0.00-0.30) Albumin 2.9 GM/DL (3.4-5.0) Imaging WBC Spect scan shows "abnormal air in soft tissue and marrow cavity" "WBC activity in remaining first metatarsal and adjacent cellulitis" "moderate WBC activity around chronic healing fracture of second metatarsal" Last 48 hours Impressions Foot X-Ray 07/16/16 0000 Signed Impressions: Service Date/Time: Saturday, July 16, 2016 09:23 - CONCLUSION: Findings are concerning for soft tissue infection with subcutaneous emphysema and swelling present. The possibility of infection with gas-forming organism is not excluded. Jacinto Otto MD A/P Assessment and Plan 1. Osteomyelitis - continue antibiotic regimen -seen by podiatry, who recommended dressings, nonweightbearing, and keeping foot dry - nuclear imaging shows increased WBC activity in bone and surrounding tissue 2. Diabetes type 2, insulin dependent - increase to Levemir 10units every 12 hours - continue sliding scale Novolog 3. Shoulder pain - X-ray pending Discharge Planning Patient seen and examined. Case reviewed and discussed with the resident team. Agree with plan of care as discussed with me and documented in the resident note. Sheron John Jul 17, 2016 13:18 Astrid Mahoney MD Jul 17, 2016 14:37
[2016-07-17 16:00] VITALS: BP 136/85; PULSE 94; RESP 20; TEMP 97.2; O2SAT 95
--- NOTE | 2016-07-17 16:33 | PD.POD ---
Subjective Podiatric Problems Diabetic male with peripheral neuropathy History of hallux amputation right foot "Puncture wound "right plantar first met area with abscess. 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 Patient is here from [place] doing [employer] jobs. Claims he was walking on the beach barefoot approximately 6 days ago and stepped on a nail. He developed redness and swelling and drainage from the right foot. Radiograph showed some soft tissue are which is most likely from probing the area. Ordered a Maxorb extra AG packing in the emergency room. Patient was seen today on the floor and did not have the packing in place. I ordered a [facility] labeled white blood cell scan which showed osteomyelitis of the first metatarsal. Past Med/Surg/Social History Past Medical History [facility] Reviewed: Yes Endocrine: REPORTS HX OF: Diabetes mellitus Neurologic: REPORTS HX OF: Peripheral neuropathy Past Surgical History Musculoskeletal: REPORTS HX OF: Other musculoskeletal srg (right hallux amputation) Social History Smoking Status: Never Smoker Review of Systems Cardiovascular: COMPLAINS OF: Swelling legs / ankles Musculoskeletal: COMPLAINS OF: Deformaties Neurological: COMPLAINS OF: Numbness/tingling, Changes in sensation Objective Vital Signs Vital Signs Date Time Temp Pulse Resp B/P Pulse Ox O2 Delivery O2 Flow Rate FiO2 07/17/16 12:48 98.7 100 20 133/83 98 07/17/16 08:00 96.9 74 18 113/80 96 07/17/16 04:00 98.0 78 16 126/86 97 07/17/16 00:00 97.9 89 16 98/60 97 07/16/16 20:00 98.2 91 16 119/72 97 Coded Allergies: No Known Allergies (Unverified , 07/16/16) Medications and IVs Current Medications Diphtheria/ Tetanus/Acell Pertussis (Boostrix Inj) 0.5 ml ONCE ONCE IM Last administered on 07/16/16 09:33; Start 07/16/16 at 09:15; Stop 07/16/16 at 09:16; Status DC Acetaminophen 650 mg 650 mg ONCE ONCE PO Last administered on 07/16/16 10:23; Start 07/16/16 at 10:00; Stop 07/16/16 at 10:01; Status DC Vancomycin HCl 1000 mg/Sodium Chloride 250 ml @ 250 mls/hr ONCE ONCE IV Last administered on 07/16/16 10:24; Start 07/16/16 at 10:00; Stop 07/16/16 at 10:59; Status DC Piperacillin Sod/ Tazobactam Sod 100 ml @ 200 mls/hr ONCE ONCE IV Last administered on 07/16/16 10:00; Start 07/16/16 at 10:00; Stop 07/16/16 at 10:29; Status DC Sodium Chloride (NS 1000 ml Inj) 1,000 ml @ 100 mls/hr Q10H IV Last administered on 07/16/16 03:40; Start 07/16/16 at 12:00; Stop 07/17/16 at 10:13; Status DC IV Flush (NS Flush) 2 ml UNSCH PRN FLUSH FLUSH AFTER USING IV ACCESS; Start 07/16/16 at 11:30 IV Flush (NS Flush) 2 ml BID FLUSH ; Start 07/16/16 at 21:00 Acetaminophen (Tylenol) 650 mg Q4H PRN PO TEMP>100.4F,PAIN1-10,IRRITABLE; Start 07/16/16 at 11:30 Ondansetron HCl (Zofran Inj) 4 mg Q6H PRN IVP NAUSEA OR VOMITING; Start at 11:30 Naloxone HCl 0.4 mg 0.4 mg UNSCH PRN IV SEE LABEL COMMENTS; Start 07/16/16 at 11 :30 Piperacillin Sod/ Tazobactam Sod 50 ml @ 100 mls/hr Q6H IV Last administered on 07/17/16 12:47; Start 07/16/16 at 18:00 Pharmacy Profile Note 0 ml @ 0 mls/hr UNSCH OTHER ; Start 07/16/16 at 11:30 Vancomycin HCl/ Sodium Chloride (Vancomycin Inj/ NS 250 ml Inj) 262.5 ml @ 262.5 mls/ hr Q12H IV Last administered on 07/17/16 09:14; Start 07/16/16 at 21: 00 Miscellaneous Information SPECIFIC LAB TO BE VENU... ONCE ONCE XX ; Start at 08:45; Stop 07/18/16 at 08:46 Dextrose (D50w (Vial) Inj) 25 ml UNSCH PRN IV PUSH HYPOGLYCEMIA-SEE COMMENTS; Start 07/16/16 at 12:45 Glucagon (Glucagon Inj) 1 mg UNSCH PRN OTHER HYPOGLYCEMIA-SEE COMMENTS; Start 07/16/16 at 12:45 Insulin Aspart (NovoLOG SUPPLEMENTAL SCALE) 1 ACHS SLIDING SCALE SQ Last administered on 07/17/16 12:49; Start 07/16/16 at 16:00 Insulin Detemir (Levemir Inj) 7 units Q12HR SQ Last administered on 07/17/16 09 :00; Start 07/16/16 at 21:00; Stop 07/17/16 at 13:38; Status DC Ketorolac Tromethamine (Toradol Inj) 30 mg Q6H PRN IVP PAIN SCALE 1 TO 5 Last administered on 07/16/16 15:48; Start 07/16/16 at 13:15; Stop 07/16/16 at 16:33; Status DC Acetaminophen/ Hydrocodone Bitart ([place] 5-325 Mg) 1 tab Q4H PRN PO PAIN SCALE 1 TO 5 Last administered on 07/16/16 15:43; Start 07/16/16 at 13:15 Acetaminophen/ Hydrocodone Bitart ([place] 5-325 Mg) 2 tab Q6H PRN PO PAIN SCALE 6 TO 10 Last administered on 07/17/16 12:48; Start 07/16/16 at 13:15 Morphine Sulfate (Morphine Inj) 2 mg Q3H PRN IV PUSH BREAKTHROUGH PAIN; Start 07/16/16 at 13:15 Naloxone HCl (Narcan Inj) 0.4 mg UNSCH PRN IV SEE LABEL COMMENTS; Start at 13:15; Stop 07/16/16 at 13:24; Status DC Ketorolac Tromethamine (Toradol Inj) 30 mg Q6H IVP Last administered on 09:14; Start 07/16/16 at 22:00; Stop 07/21/16 at 21:59 Insulin Detemir (Levemir Inj) 10 units Q12HR SQ ; Start 07/17/16 at 21:00 Senna/Docusate Sodium (Payton-Colace) 2 tab HS PO ; Start 07/17/16 at 21:00 Other Results Laboratory Tests Test 07/16/16 07/17/16 09:13 06:31 White Blood Count 10.1 TH/MM3 10.5 TH/MM3 Red Blood Count 4.38 MIL/MM3 3.95 MIL/MM3 Hemoglobin 12.8 GM/DL 11.3 GM/DL Hematocrit 36.5 % 33.1 % Mean Corpuscular Volume 83.3 FL 83.7 FL Mean Corpuscular Hemoglobin 29.1 PG 28.5 PG Mean Corpuscular Hemoglobin 34.9 % 34.1 % Concent Red Cell Distribution Width 12.4 % 12.3 % Platelet Count 318 TH/MM3 310 TH/MM3 Mean Platelet Volume 8.2 FL 8.4 FL Neutrophils (%) (Auto) 64.7 % 65.0 % Lymphocytes (%) (Auto) 22.9 % 23.8 % Monocytes (%) (Auto) 10.6 % 8.6 % Eosinophils (%) (Auto) 0.9 % 2.0 % Basophils (%) (Auto) 0.9 % 0.6 % Neutrophils # (Auto) 6.5 TH/MM3 6.8 TH/MM3 Lymphocytes # (Auto) 2.3 TH/MM3 2.5 TH/MM3 Monocytes # (Auto) 1.1 TH/MM3 0.9 TH/MM3 Eosinophils # (Auto) 0.1 TH/MM3 0.2 TH/MM3 Basophils # (Auto) 0.1 TH/MM3 0.1 TH/MM3 CBC Comment DIFF FINAL DIFF FINAL Differential Comment Erythrocyte Sedimentation Rate 71 mm/hr Laboratory Tests Test 07/16/16 07/17/16 09:13 06:31 Sodium Level 133 MEQ/L 135 MEQ/L Potassium Level 4.1 MEQ/L 3.9 MEQ/L Chloride Level 96 MEQ/L 97 MEQ/L Carbon Dioxide Level 29.1 MEQ/L 29.5 MEQ/L Anion Gap 8 MEQ/L 9 MEQ/L Blood Urea Nitrogen 10 MG/DL 14 MG/DL Creatinine 0.86 MG/DL 0.91 MG/DL Estimat Glomerular Filtration 98 ML/MIN 92 ML/MIN Rate Random Glucose 294 MG/DL 289 MG/DL Calcium Level 9.1 MG/DL 8.5 MG/DL Total Bilirubin 0.5 MG/DL Aspartate Amino Transf 14 U/L (AST/SGOT) Alanine Aminotransferase 28 U/L (ALT/SGPT) Alkaline Phosphatase 230 U/L C-Reactive Protein 21.00 MG/DL Total Protein 8.0 GM/DL Albumin 2.9 GM/DL Microbiology Date/Time Procedure Status Source Growth 07/16/16 09:30 Gram Stain - Final Resulted Wound Foot 07/16/16 09:30 Wound Culture - Preliminary Resulted Group B Beta Strep Gram Negative Farshad Exam-Podiatry Constitutional General appearance: comfortable Nutritional status: overweight Orientation: alert and oriented x3 Dermatological Exam Skin Temp - Right: Hot Skin Texture - Right: Within Normal Limits Skin Elasticity - Right: Within Normal Limits Skin Tugor - Right: Within Normal Limits Hair Growth - Right: Absent Pigmentation - Right: Within Normal Limits Skin Temp - Left: Within Normal Limits Skin Texture - Left: Within Normal Limits Skin Elasticity - Left: Within Normal Limits Skin Tugor - Left: Within Normal Limits Hair Growth - Left: Within Normal Limits Pigmentation - Left: Within Normal Limits Ulcers: Location/Measurements Ulceration plantar aspect of the first metatarsal right foot. Wound probes to bone. Some yellowish drainage coming from the wound. Vascular/Lymphatic Exam R Dorsails Pedis: Palpable L Dorsails Pedis: Palpable R Posterior Tibial: Palpable L Posterior Tibial: Palpable Neurologic Exam Present on right: Tingling, Hyperesthesia Present on left: Tingling, Paraesthesia Musculoskeletal Exam Details Previous amputation of the right hallux Muscle Strength Dorsiflexion (Right): Normal Plantarflexion (Right): Normal Inversion (Right): Normal Eversion (Right): Normal Digital (Right): Normal Dorsiflexion (Left): Normal Plantarflexion (Left): Normal Inversion (Left): Normal Eversion (Left): Normal Digital (Left): Normal Foot Range of Motion Dorsiflexion (Right): Normal Plantarflexion (Right): Normal Inversion (Right): Normal Eversion (Right): Normal Digital (Right): Normal Dorsiflexion (Left): Normal Plantarflexion (Left): Normal Inversion (Left): Normal Eversion (Left): Normal Digital (Left): Normal Assessment & Plan Diagnosis: (1) Diabetic infection of right foot Status: Acute (2) Diabetes type 2, uncontrolled Status: Chronic (3) Osteomyelitis of foot, right, acute Status: Acute A/P PLAN: Patient was put on the schedule for Saturday at 10:30 for excision of the first metatarsal. Discussed planned procedure with the patient and his . Discussed with the nurse proper tracking of the wound. She is going to redo the Maxorb extra AG packing today. I will follow the patient. Problem Qualifiers (1) Diabetes type 2, uncontrolled: Qualified Code: E11.42 - Uncontrolled type 2 diabetes mellitus with diabetic polyneuropathy, with long-term current use of insulin Himanshu Ramirez DPM Jul 17, 2016 16:33
--- NOTE | 2016-07-17 18:33 | RADRPT ---
EXAM DATE/TIME: 07/17/2016 17:46 [facility] COMPARISON: No previous studies available for comparison. INDICATIONS : Shoulder pain. MEDICAL HISTORY : None. SURGICAL HISTORY : None. ENCOUNTER: Initial ACUITY: 3 days PAIN SCORE: 8/10 LOCATION: Right shoulder FINDINGS: There is mild arthritic change at the a.c. joint. There is no evidence of fracture, dislocation or anamaria ny destruction. The adjacent clavicle and ribs appear intact. CONCLUSION: No acute process. Alphonse Boswell MD on July 17, 2016 at 18:31 Board Certified Radiologist. This report was verified electronically.
[2016-07-17 20:00] VITALS: BP 108/96; PULSE 86; RESP 16; TEMP 99.2; O2SAT 96
[2016-07-17] MEDS: DOCUSATE SODIUM 50 MG/SENNA 8.6 MG TAB PO SCH (20:29)
[2016-07-18] VITALS: BP 111/72; PULSE 79; RESP 16; TEMP 97.9; O2SAT 96
[2016-07-18 04:00] VITALS: BP 163/96; PULSE 85; RESP 16; TEMP 97.9; O2SAT 94
[2016-07-18] MEDS: ONDANSETRON HCL 4 MG/2 ML VIAL IVP PRN (04:35)
[2016-07-18] MEDS: KETOROLAC TROMETHAMINE 30 MG/ML (IVP) VIAL IVP SCH ×4 (04:35→21:15)
[2016-07-18] MEDS: INSULIN ASPART SUPPLEMENTAL SCALE SQ SCH ×4 (05:58→21:15)
[2016-07-18] MEDS: PIPERACIL-TAZO 3.375 GM PREMIX 50 ML IV SCH ×2 (05:58→12:20)
[2016-07-18 08:00] VITALS: BP 160/96; PULSE 75; RESP 16; TEMP 98; O2SAT 94
[2016-07-18] MEDS: ACETAMINOPHEN/HYDROcodone 325 MG/5 MG TAB PO PRN (08:04)
[2016-07-18] MEDS: INSULIN DETEMIR 100 UNITS/ML VIAL SQ SCH ×2 (08:04→21:24)
[2016-07-18 08:11] LABS: AUTOMATED NEUTROPHIL # 7.8 TH/MM3 (1.8-7.7); BASOPHIL # 0.1 TH/MM3 (0-0.2); BASOPHIL % 0.5 % (0.0-2.0); EOSINOPHIL # 0.2 TH/MM3 (0-0.4); EOSINOPHIL % 1.7 % (0.0-4.0); HEMATOCRIT 33.5 % (39.0-51.0); HEMO FLAGS DIFF FINAL; LYMPH % 19.1 % (9.0-44.0); LYMPHOCYTE # 2.1 TH/MM3 (1.0-4.8); MEAN CELL VOLUME 82.8 FL (80.0-100.0); MEAN CORPUSCULAR HEMOGLOBIN 28.6 PG (27.0-34.0); MEAN CORPUSCULAR HGB CONC 34.5 % (32.0-36.0); MONO % 7.6 % (0.0-8.0); NEUT % 71.1 % (16.0-70.0); PLATELET COUNT 374 TH/MM3 (150-450); RED BLOOD COUNT 4.05 MIL/MM3 (4.50-5.90); RED CELL DISTRIBUTION WIDTH 12.5 % (11.6-17.2); WHITE BLOOD COUNT 10.9 TH/MM3 (4.0-11.0)
[2016-07-18] MEDS: VANCOMYCIN INJ 1,250 MG in SODIUM CHLOR 0.9% 250 ML INJ 250 ML IV SCH (08:21)
[2016-07-18] MEDS: SODIUM CHLORIDE 0.9% FLUSH 5 ML FLUSH FLUSH SCH ×2 (08:21→21:16)
[2016-07-18 08:37] LABS: BICARBONATE 28.1 MEQ/L (21.0-32.0); POTASSIUM 3.7 MEQ/L (3.5-5.1)
[2016-07-18] MEDS ORDERED: PHARMACY ORDERED LAB XX ONE (08:45)
--- NOTE | 2016-07-18 09:26 | HHI.FPPN ---
Subjective Remarks Patient describes the intensity of his foot pain as a 4 out of 10. He also reports some headache this morning since 5 AM, which is relatively mild. He also reports some nausea this morning and some vomiting of phlegm. He reports a feels too nauseous to eat this morning. He continues to complain of right shoulder and neck pain; he agrees that he would likely help this pain. (Antoni Tristan MD R1) Objective Vitals Vital Signs Date Time Temp Pulse Resp B/P Pulse Ox O2 Delivery O2 Flow Rate FiO2 07/18/16 08:00 98.0 75 16 160/96 94 07/18/16 05:35 18 07/18/16 04:00 97.9 85 16 163/96 94 07/18/16 00:00 97.9 79 16 111/72 96 07/17/16 20:00 99.2 86 16 108/96 96 07/17/16 16:00 97.2 94 20 136/85 95 07/17/16 12:48 98.7 100 20 133/83 98 I/O 07/17/16 07/17/16 07/17/16 07/18/16 07/18/16 07/18/16 07:00 15:00 23:00 07:00 15:00 23:00 Intake Total 1660 ml 840 ml 480 ml 100 ml Balance 1660 ml 840 ml 480 ml 100 ml Intake Oral 240 ml 840 ml 480 ml 100 ml IV Total 1420 ml # Voids 2 2 1 3 # Bowel Movements 1 0 (Antoni Tristan MD R1) Result Diagram: 07/18/16 0700 07/18/16 0700 Imaging Last Impressions Shoulder X-Ray 07/17/16 0000 Signed Impressions: Service Date/Time: Sunday, July 17, 2016 17:46 - CONCLUSION: No acute process. Alphonse Boswell MD Tumor Localization 07/16/16 0000 Signed Impressions: Service Date/Time: Saturday, July 16, 2016 14:46 - CONCLUSION: 1. Abnormal air in both the soft tissues of the medial right foot and within the marrow cavity of the first metatarsal which has been amputated distally. There is intense white blood cell activity in the medial right foot and first metatarsal. The findings are characteristic of osteomyelitis of the entire remaining first metatarsal and adjacent cellulitis. 2. [id number] white blood cell activity is also present around a chronic healing fracture of the proximal second metatarsal. Molina Ferrell MD Foot X-Ray 07/16/16 0000 Signed Impressions: Service Date/Time: Saturday, July 16, 2016 09:23 - CONCLUSION: Findings are concerning for soft tissue infection with subcutaneous emphysema and swelling present. The possibility of infection with gas-forming organism is not excluded. Jacinto Otto MD Objective Remarks Gen.: No acute distress Head: Normocephalic. Atraumatic. EENT: Pupils equal round and reactive to light. Nose without drainage. Airway intact. Cardiovascular: Regular rate and rhythm. No murmurs, rubs or gallops. Respiratory: Lungs clear to auscultation bilaterally. No wheezes or rhonchi. Abdomen: Soft, nontender, nondistended. No peritoneal signs. Musculoskeletal: No gross deformities. No edema. Surgical absence of right great toe. Wound on right foot dressed, dressing clean/dry/intact. Skin: No obvious rashes or erythema. Neuro: Sensory and motor grossly intact. Cranial nerves II through XII grossly intact. Psych: Appropriate mood and affect (Antoni Tristan MD R1) A/P Assessment and Plan 40 yo male with puncture wound right foot 5 days ago, now with swelling , pain, drainage. Admitted for IV antibiotics and amputation in OR scheduled for Saturday. Discharge Planning Pending podiatry recommendations (Antoni Tristan MD R1) Attending Attestation Patient seen and examined. Case reviewed and discussed with the resident team. Agree with plan of care as discussed with me and documented in the resident note. (Astrid Mahoney MD) Problem List: (1) Diabetic infection of right foot Status: Acute Plan: Patient presented with diabetic foot infection, imaging concerning for osteomyelitis. -Podiatry consulted (Dr. Ramirez) -Tetanus vaccine given -Continue Vanc and zosyn (started /) -Pain control: toradol 30 mg q6 scheduled; norco 1 tab PO pain 1-5; norco 2 tabs PO pain 6-10; morphine 2 mg breakthrough pain -Wound cultures grew for organisms: Group B beta strep, pansensitive Escherichia coli, pansensitive pseudomonas, staph aureus. Susceptibility still pending on group B beta strep and staph aureus -Gram stain of wound shows many gram-positive cocci in pairs and chains with moderate gram-negative rods -WBC scan significant for osteomyelitis, awaiting Podiatry recommendations (2) Shoulder pain Status: Acute Plan: Patient with right shoulder pain on abduction. He believes it may be from the way that he sleeps. Shoulder x-ray normal K thermia (3) Diabetes Status: Acute Plan: Blood glucose this morning 139; likely patient has poor glucose control although he states his sugars are normally 125-180 Increase Levemir to 10 units every 12 hours Sliding scale insulin (4) FEN/PPX Status: Acute Plan: Fluids: Hep-Lock IV Electrolytes: monitor and replace prn Nutrition: diabetic diet PPX: bilateral SCDs (Antoni Tristan MD R1) Problem Qualifiers (1) Diabetes: Qualified Code: E11.8 - Type 2 diabetes mellitus with complication, with long- term current use of insulin Antoni Tristan MD R1 Jul 18, 2016 09:26 Astrid Mahoney MD Jul 18, 2016 15:14
[2016-07-18 12:00] VITALS: BP 134/80; PULSE 75; RESP 16; TEMP 98.9; O2SAT 95
--- NOTE | 2016-07-18 12:48 | PD.POD ---
Subjective Podiatric Problems Diabetic male with peripheral neuropathy History of hallux amputation right foot "Puncture wound "right plantar first met area with abscess. 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 Patient is here from [place] doing [employer]. Claims he was walking on the beach barefoot approximately 6 days ago and stepped on a nail. He developed redness and swelling and drainage from the right foot. Radiograph showed some soft tissue are which is most likely from probing the area. ordered a [employer] labeled white blood cell scan which showed osteomyelitis of the first metatarsal. Past Med/Surg/Social History Past Medical History PFS Reviewed: Yes Endocrine: REPORTS HX OF: Diabetes mellitus Neurologic: REPORTS HX OF: Peripheral neuropathy Past Surgical History Musculoskeletal: REPORTS HX OF: Other musculoskeletal srg (right hallux amputation) Social History Smoking Status: Never Smoker Review of Systems Notes No changes in his 14 point review of systems exam since he was seen yesterday Objective Vital Signs Vital Signs Date Time Temp Pulse Resp B/P Pulse Ox O2 Delivery O2 Flow Rate FiO2 07/18/16 08:00 98.0 75 16 160/96 94 07/18/16 05:35 18 07/18/16 04:00 97.9 85 16 163/96 94 07/18/16 00:00 97.9 79 16 111/72 96 07/17/16 20:00 99.2 86 16 108/96 96 07/17/16 16:00 97.2 94 20 136/85 95 07/17/16 12:48 98.7 100 20 133/83 98 Coded Allergies: No Known Allergies (Unverified , 07/16/16) Medications and IVs Current Medications Diphtheria/ Tetanus/Acell Pertussis (Boostrix Inj) 0.5 ml ONCE ONCE IM Last administered on 07/16/16 09:33; Start 07/16/16 at 09:15; Stop 07/16/16 at 09:16; Status DC Acetaminophen 650 mg 650 mg ONCE ONCE PO Last administered on 07/16/16 10:23; Start 07/16/16 at 10:00; Stop 07/16/16 at 10:01; Status DC Vancomycin HCl 1000 mg/Sodium Chloride 250 ml @ 250 mls/hr ONCE ONCE IV Last administered on 07/16/16 10:24; Start 07/16/16 at 10:00; Stop 07/16/16 at 10:59; Status DC Piperacillin Sod/ Tazobactam Sod 100 ml @ 200 mls/hr ONCE ONCE IV Last administered on 07/16/16 10:00; Start 07/16/16 at 10:00; Stop 07/16/16 at 10:29; Status DC Sodium Chloride (NS 1000 ml Inj) 1,000 ml @ 100 mls/hr Q10H IV Last administered on 07/16/16 03:40; Start 07/16/16 at 12:00; Stop 07/17/16 at 10:13; Status DC IV Flush (NS Flush) 2 ml UNSCH PRN FLUSH FLUSH AFTER USING IV ACCESS; Start 07/16/16 at 11:30 IV Flush (NS Flush) 2 ml BID FLUSH Last administered on 07/18/16 08:21; Start 07/16/16 at 21:00 Acetaminophen (Tylenol) 650 mg Q4H PRN PO TEMP>100.4F,PAIN1-10,IRRITABLE; Start 07/16/16 at 11:30 Ondansetron HCl (Zofran Inj) 4 mg Q6H PRN IVP NAUSEA OR VOMITING Last administered on 07/18/16 04:35; Start 07/16/16 at 11:30 Naloxone HCl 0.4 mg 0.4 mg UNSCH PRN IV SEE LABEL COMMENTS; Start 07/16/16 at 11 :30 Piperacillin Sod/ Tazobactam Sod 50 ml @ 100 mls/hr Q6H IV Last administered on 07/18/16 12:20; Start 07/16/16 at 18:00 Pharmacy Profile Note 0 ml @ 0 mls/hr UNSCH OTHER ; Start 07/16/16 at 11:30 Vancomycin HCl/ Sodium Chloride (Vancomycin Inj/ NS 250 ml Inj) 262.5 ml @ 262.5 mls/ hr Q12H IV Last administered on 07/18/16 08:21; Start 07/16/16 at 21: 00; Status Hold Miscellaneous Information SPECIFIC LAB TO BE VENU... ONCE ONCE XX Last administered on 07/18/16 08:21; Start 07/18/16 at 08:45; Stop 07/18/16 at 08:46; Status DC Dextrose (D50w (Vial) Inj) 25 ml UNSCH PRN IV PUSH HYPOGLYCEMIA-SEE COMMENTS; Start 07/16/16 at 12:45 Glucagon (Glucagon Inj) 1 mg UNSCH PRN OTHER HYPOGLYCEMIA-SEE COMMENTS; Start 07/16/16 at 12:45 Insulin Aspart (NovoLOG SUPPLEMENTAL SCALE) 1 ACHS SLIDING SCALE SQ Last administered on 07/17/16 20:28; Start 07/16/16 at 16:00 Insulin Detemir (Levemir Inj) 7 units Q12HR SQ Last administered on 07/17/16 09 :00; Start 07/16/16 at 21:00; Stop 07/17/16 at 13:38; Status DC Ketorolac Tromethamine (Toradol Inj) 30 mg Q6H PRN IVP PAIN SCALE 1 TO 5 Last administered on 07/16/16 15:48; Start 07/16/16 at 13:15; Stop 07/16/16 at 16:33; Status DC Acetaminophen/ Hydrocodone Bitart ([place] 5-325 Mg) 1 tab Q4H PRN PO PAIN SCALE 1 TO 5 Last administered on 07/16/16 15:43; Start 07/16/16 at 13:15 Acetaminophen/ Hydrocodone Bitart ([place] 5-325 Mg) 2 tab Q6H PRN PO PAIN SCALE 6 TO 10 Last administered on 07/18/16 08:04; Start 07/16/16 at 13:15 Morphine Sulfate (Morphine Inj) 2 mg Q3H PRN IV PUSH BREAKTHROUGH PAIN; Start 07/16/16 at 13:15 Naloxone HCl (Narcan Inj) 0.4 mg UNSCH PRN IV SEE LABEL COMMENTS; Start at 13:15; Stop 07/16/16 at 13:24; Status DC Ketorolac Tromethamine (Toradol Inj) 30 mg Q6H IVP Last administered on 04:35; Start 07/16/16 at 22:00; Stop 07/21/16 at 21:59 Insulin Detemir (Levemir Inj) 10 units Q12HR SQ Last administered on 07/18/16 08:04; Start 07/17/16 at 21:00 Senna/Docusate Sodium (Payton-Colace) 2 tab HS PO Last administered on 07/17/16t 20:29; Start 07/17/16 at 21:00 Other Results Laboratory Tests Test 07/17/16 07/18/16 06:31 07:00 White Blood Count 10.5 TH/MM3 10.9 TH/MM3 Red Blood Count 3.95 MIL/MM3 4.05 MIL/MM3 Hemoglobin 11.3 GM/DL 11.6 GM/DL Hematocrit 33.1 % 33.5 % Mean Corpuscular Volume 83.7 FL 82.8 FL Mean Corpuscular Hemoglobin 28.5 PG 28.6 PG Mean Corpuscular Hemoglobin 34.1 % 34.5 % Concent Red Cell Distribution Width 12.3 % 12.5 % Platelet Count 310 TH/MM3 374 TH/MM3 Mean Platelet Volume 8.4 FL 8.3 FL Neutrophils (%) (Auto) 65.0 % 71.1 % Lymphocytes (%) (Auto) 23.8 % 19.1 % Monocytes (%) (Auto) 8.6 % 7.6 % Eosinophils (%) (Auto) 2.0 % 1.7 % Basophils (%) (Auto) 0.6 % 0.5 % Neutrophils # (Auto) 6.8 TH/MM3 7.8 TH/MM3 Lymphocytes # (Auto) 2.5 TH/MM3 2.1 TH/MM3 Monocytes # (Auto) 0.9 TH/MM3 0.8 TH/MM3 Eosinophils # (Auto) 0.2 TH/MM3 0.2 TH/MM3 Basophils # (Auto) 0.1 TH/MM3 0.1 TH/MM3 CBC Comment DIFF FINAL DIFF FINAL Differential Comment Laboratory Tests Test 07/17/16 07/18/16 06:31 07:00 Sodium Level 135 MEQ/L 139 MEQ/L Potassium Level 3.9 MEQ/L 3.7 MEQ/L Chloride Level 97 MEQ/L 102 MEQ/L Carbon Dioxide Level 29.5 MEQ/L 28.1 MEQ/L Anion Gap 9 MEQ/L 9 MEQ/L Blood Urea Nitrogen 14 MG/DL 16 MG/DL Creatinine 0.91 MG/DL 1.34 MG/DL Estimat Glomerular Filtration 92 ML/MIN 59 ML/MIN Rate Random Glucose 289 MG/DL 142 MG/DL Calcium Level 8.5 MG/DL 8.8 MG/DL Microbiology Date/Time Procedure Status Source Growth 07/16/16 09:30 Gram Stain - Final Resulted Wound Foot 07/16/16 09:30 Wound Culture - Preliminary Resulted Group B Beta Strep Escherichia Coli Pseudomonas Aeruginosa Staphylococcus Aureus Exam-Podiatry Constitutional General appearance: comfortable Nutritional status: normal Orientation: alert and oriented x3 Dermatological Exam Skin Temp - Right: Within Normal Limits Skin Texture - Right: Within Normal Limits Skin Elasticity - Right: Within Normal Limits Skin Tugor - Right: Within Normal Limits Hair Growth - Right: Within Normal Limits Pigmentation - Right: Within Normal Limits Skin Temp - Left: Within Normal Limits Skin Texture - Left: Within Normal Limits Skin Elasticity - Left: Within Normal Limits Skin Tugor - Left: Within Normal Limits Hair Growth - Left: Within Normal Limits Pigmentation - Left: Within Normal Limits Ulcers: Location/Measurements Ulceration sub-first met head right foot. Draining area noted. Vascular/Lymphatic Exam R Dorsails Pedis: Palpable L Dorsails Pedis: Palpable R Posterior Tibial: Palpable L Posterior Tibial: Palpable Neurologic Exam Present on right: Tingling, Paraesthesia Present on left: Tingling, Paraesthesia Sensation: Light touch: Dimished Pinprick: Dimished Proprioception: Dimished Vibratory: Dimished Musculoskeletal Exam Details Right hallux pre-amputated Muscle Strength Dorsiflexion (Right): Normal Plantarflexion (Right): Normal Inversion (Right): Normal Eversion (Right): Normal Digital (Right): Normal Dorsiflexion (Left): Normal Plantarflexion (Left): Normal Inversion (Left): Normal Eversion (Left): Normal Digital (Left): Normal Foot Range of Motion Dorsiflexion (Right): Normal Plantarflexion (Right): Normal Inversion (Right): Normal Eversion (Right): Normal Digital (Right): Normal Dorsiflexion (Left): Normal Plantarflexion (Left): Normal Inversion (Left): Normal Eversion (Left): Normal Digital (Left): Normal Assessment & Plan Diagnosis: (1) Diabetic infection of right foot Status: Acute (2) Diabetes type 2, uncontrolled Status: Chronic (3) Osteomyelitis of foot, right, acute Status: Acute A/P PLAN: Patient was put on the schedule for Saturday morning at 10:30 for excision of the first metatarsal. Discussed planned procedure with the patient. ID consultation requested. Problem Qualifiers (1) Diabetes type 2, uncontrolled: Qualified Code: E11.42 - Uncontrolled type 2 diabetes mellitus with diabetic polyneuropathy, with long-term current use of insulin Himanshu Ramirez DPM Jul 18, 2016 12:48
[2016-07-18 16:00] VITALS: BP 153/86; PULSE 80; RESP 14; TEMP 99.2; O2SAT 94
--- NOTE | 2016-07-18 16:11 | PD.CONS ---
History of Present Illness Service Infectious disease Consult Requested By Dr. Himanshu Ramirez Reason for Consult Evaluate patient with foot abscess, make recommendation regarding short-term and long-term antibiotics Primary Care Physician No Primary Care Physician Diagnoses: History of Present Illness Patient seen and examined. Records reviewed. Patient is a 40-year-old male, with diabetes, admitted to the hospital for evaluation of increasing pain on his right foot and fevers. He apparently stepped on a nail while walking bare feet on the beach. He sustained a puncture wound over his right first metatarsal. He started having pain and he had been taking ibuprofen for pain control. The pain started getting worse, and he noticed swelling and some redness, associated with some subjective fever and chills. He denies any nausea or vomiting, respiratory complaint, or any urinary complaints. His WBC has been normal. He has not had any fever although today temperature is been 99+. His sedimentation rate is 71, and C- reactive protein is greater than 20. Smasher seen the patient, and the open wound probe to the bone. He had a WBC scan which showed findings of osteomyelitis in his right first metatarsal bone. Culture from the right foot has Escherichia coli, Pseudomonas, MSSA, and strep. Infectious disease consultation has been requested to evaluate the patient. Review of Systems Constitutional: COMPLAINS OF: Fever, Chills Eyes: DENIES: Eye pain Ears, nose, mouth, throat: DENIES: Nasal discharge, Oral lesions, Throat pain, Ear Pain, Running Nose, Sinus Pain Respiratory: DENIES: Cough, Sputum production, Shortness of breath Cardiovascular: DENIES: Chest pain, Palpitations, Syncope, Dyspnea on Exertion Gastrointestinal: COMPLAINS OF: Nausea, DENIES: Abdominal pain, Diarrhea, Vomiting, Difficulty Swallowing Genitourinary: DENIES: Hematuria, Dysuria Musculoskeletal: COMPLAINS OF: Joint pain, Joint Swelling, DENIES: Neck pain Integumentary: DENIES: Rash Neurologic: DENIES: Headache Psychiatric: DENIES: Anxiety Past Family Social History Allergies: Coded Allergies: No Known Allergies (Unverified , 07/16/16) Past Medical History Diabetes Past Surgical History Previous right big toe amputation Active Ordered Medications [place]-Colace Vancomycin Zofran Zosyn Insulin Toradol Morphine Tylenol [place] Social History , lives in [place] 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 SKIN: Warm and dry. No generalized rash, ecchymosis or embolic lesions. HEAD: Atraumatic. Normocephalic. No temporal or scalp tenderness. EYES: Virgil conjunctivae. Pupils equal round and reactive. Extraocular motions intact. No scleral icterus. No injection or drainage. ENT: Nose without bleeding, or purulent drainage. Moist oral mucosa. Throat without erythema, or exudate. Uvula midline. Airway patent. NECK: Trachea midline. No JVD or lymphadenopathy. Supple, nontender, no meningeal signs. CARDIOVASCULAR: Regular rate and rhythm without murmurs, gallops, or rubs. RESPIRATORY: Clear to auscultation. Breath sounds equal bilaterally. No wheezes , rales, or rhonchi. GASTROINTESTINAL: Abdomen soft, non-tender, nondistended. Bowel sounds are present and normoactive. No hepato-splenomegaly, or palpable masses. No guarding. MUSCULOSKELETAL: Extremities without clubbing, cyanosis, or edema. No joint effusion, or edema noted. No calf tenderness. Negative Homans sign bilaterally. R foot - previous amputation of his R big toe. On plantar aspect first MT is an area with small opening, currently dry, and has brown dried drainage on the bandage. There is some swelling but mild, and currently no erythema seen. No odor. No lymphangitis seen in his RLE NEUROLOGICAL: Awake and alert. Cranial nerves II through XII intact. Motor and sensory grossly within normal limits. Five out of 5 muscle strength in all muscle groups. Normal speech. PSYCH: Normal affect, calm and cooperative LINE: PIV with no evidence of infection Laboratory Laboratory Tests Test 07/18/16 07/18/16 07:00 08:15 White Blood Count 10.9 Red Blood Count 4.05 Hemoglobin 11.6 Hematocrit 33.5 Mean Corpuscular Volume 82.8 Mean Corpuscular Hemoglobin 28.6 Mean Corpuscular Hemoglobin 34.5 Concent Red Cell Distribution Width 12.5 Platelet Count 374 Mean Platelet Volume 8.3 Neutrophils (%) (Auto) 71.1 Lymphocytes (%) (Auto) 19.1 Monocytes (%) (Auto) 7.6 Eosinophils (%) (Auto) 1.7 Basophils (%) (Auto) 0.5 Neutrophils # (Auto) 7.8 Lymphocytes # (Auto) 2.1 Monocytes # (Auto) 0.8 Eosinophils # (Auto) 0.2 Basophils # (Auto) 0.1 CBC Comment DIFF FINAL Differential Comment Sodium Level 139 Potassium Level 3.7 Chloride Level 102 Carbon Dioxide Level 28.1 Anion Gap 9 Blood Urea Nitrogen 16 Creatinine 1.34 Estimat Glomerular Filtration 59 Rate Random Glucose 142 Calcium Level 8.8 Vancomycin Level Trough 16.8 Date/Time Procedure Status Source Growth 07/16/16 09:30 Gram Stain - Final Resulted Wound Foot 07/16/16 09:30 Wound Culture - Preliminary Resulted Group B Beta Strep Escherichia Coli Pseudomonas Aeruginosa Staphylococcus Aureus Result Diagram: 07/18/16 0700 07/18/16 0700 Imaging RADIOLOGY STUDIES/FILMS REVIEWED Shoulder X-Ray 07/17/16 0000 Signed Impressions: Service Date/Time: Sunday, July 17, 2016 17:46 - CONCLUSION: No acute process. Alphonse Boswell MD Tumor Localization 07/16/16 0000 Signed Impressions: Service Date/Time: Saturday, July 16, 2016 14:46 - CONCLUSION: 1. Abnormal air in both the soft tissues of the medial right foot and within the marrow cavity of the first metatarsal which has been amputated distally. There is intense white blood cell activity in the medial right foot and first metatarsal. The findings are characteristic of osteomyelitis of the entire remaining first metatarsal and adjacent cellulitis. 2. Cljh-ld-[id number] white blood cell activity is also present around a chronic healing fracture of the proximal second metatarsal. Molina Ferrell MD Foot X-Ray 07/16/16 0000 Signed Impressions: Service Date/Time: Saturday, July 16, 2016 09:23 - CONCLUSION: Findings are concerning for soft tissue infection with subcutaneous emphysema and swelling present. The possibility of infection with gas-forming organism is not excluded. Jacinto Otto MD Assessment and Plan Assessment and Plan IMPRESSION Diabetic foot infection R, from puncture wound (nail), C/S polymicrobial, with osteomyelitis first MT Renal insufficiency, etiology? - ?meds - ?Vancomycin RECOMMENDATION Stop vancomycin Stop Zosyn UA, urine for eos Cefepime and Cipro Plans for OR noted Will determine course of Abx once surgical intervention done I will follow along with you Thank you for this consultation Discussed Condition With D/W RN Explained plan to patient and WilliamnicolasLeticia Flood MD Jul 18, 2016 16:11
[2016-07-18] MEDS: CEFEPIME INJ 2,000 MG in SODIUM CHLORIDE 0.9% INJ 100 ML IV SCH (17:38)
[2016-07-18 20:00] VITALS: BP 144/88; PULSE 81; RESP 16; TEMP 99.1; O2SAT 95
[2016-07-18] MEDS: DOCUSATE SODIUM 50 MG/SENNA 8.6 MG TAB PO SCH (21:16)
[2016-07-18] MEDS: CIPROFLOXACIN 500 MG TAB PO SCH (21:16)
[2016-07-18 22:54] LABS: BLOOD, URINE NEG (NEG); GLUCOSE,URINE NEG (NEG); KETONE, URINE TRACE mg/dL (NEG); NITRITE,URINE NEG (NEG); PH, URINE 5.5 (5.0-8.5); SQUAMOUS EPITHELIAL CELL URINE <1 /hpf (0-5); URINE COLOR YELLOW (YELLW/STRAW)
[2016-07-19] VITALS: BP 131/73; PULSE 73; RESP 16; TEMP 97.5; O2SAT 97
[2016-07-19 04:44] VITALS: BP 142/74; PULSE 80; RESP 16; TEMP 97.8; O2SAT 96
[2016-07-19] MEDS: KETOROLAC TROMETHAMINE 30 MG/ML (IVP) VIAL IVP SCH ×2 (04:56→10:00)
[2016-07-19] MEDS: CEFEPIME INJ 2,000 MG in SODIUM CHLORIDE 0.9% INJ 100 ML IV SCH ×2 (05:01→17:14)
[2016-07-19] MEDS: INSULIN ASPART SUPPLEMENTAL SCALE SQ SCH ×4 (06:10→20:30)
[2016-07-19 07:19] LABS: BICARBONATE 28.7 MEQ/L (21.0-32.0); POTASSIUM 3.7 MEQ/L (3.5-5.1)
[2016-07-19 08:00] VITALS: BP 172/95; PULSE 79; RESP 16; TEMP 97.9; O2SAT 96
[2016-07-19] MEDS: CIPROFLOXACIN 500 MG TAB PO SCH ×2 (08:44→20:23)
[2016-07-19] MEDS: INSULIN DETEMIR 100 UNITS/ML VIAL SQ SCH ×2 (08:44→20:23)
[2016-07-19] MEDS: SODIUM CHLORIDE 0.9% FLUSH 5 ML FLUSH FLUSH SCH ×2 (08:44→20:17)
[2016-07-19] MEDS ORDERED: SODIUM CHLOR 0.9% 1000 ML INJ 1,000 ML IV ONE (11:15)
[2016-07-19 12:00] VITALS: BP 168/94; PULSE 76; RESP 14; TEMP 98.6; O2SAT 96
--- NOTE | 2016-07-19 12:50 | PD.POD ---
Subjective Podiatric Problems Diabetic male with peripheral neuropathy History of hallux amputation right foot "Puncture wound "right plantar first met area with abscess. 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 Patient is here from [place] doing [employer] jobs. Claims he was walking on the beach barefoot approximately 6 days ago and stepped on a nail. He developed redness and swelling and drainage from the right foot. Radiograph showed some soft tissue are which is most likely from probing the area. ordered a SnapYeti labeled white blood cell scan which showed osteomyelitis of the first metatarsal. Past Med/Surg/Social History Past Medical History PFS Reviewed: Yes Endocrine: REPORTS HX OF: Diabetes mellitus Neurologic: REPORTS HX OF: Peripheral neuropathy Past Surgical History Musculoskeletal: REPORTS HX OF: Other musculoskeletal srg (right hallux amputation) Social History Smoking Status: Never Smoker Review of Systems Notes No changes in his 14 point review of systems exam from the previous visit Objective Vital Signs Vital Signs Date Time Temp Pulse Resp B/P Pulse Ox O2 Delivery O2 Flow Rate FiO2 07/19/16 12:00 98.6 76 14 168/94 96 07/19/16 08:00 97.9 79 16 172/95 96 07/19/16 05:56 18 07/19/16 04:44 97.8 80 16 142/74 96 07/19/16 00:00 97.5 73 16 131/73 97 07/18/16 20:00 99.1 81 16 144/88 95 07/18/16 16:00 99.2 80 14 153/86 94 Coded Allergies: No Known Allergies (Unverified , 07/16/16) Medications and IVs Current Medications Diphtheria/ Tetanus/Acell Pertussis (Boostrix Inj) 0.5 ml ONCE ONCE IM Last administered on 07/16/16 09:33; Start 07/16/16 at 09:15; Stop 07/16/16 at 09:16; Status DC Acetaminophen 650 mg 650 mg ONCE ONCE PO Last administered on 07/16/16 10:23; Start 07/16/16 at 10:00; Stop 07/16/16 at 10:01; Status DC Vancomycin HCl 1000 mg/Sodium Chloride 250 ml @ 250 mls/hr ONCE ONCE IV Last administered on 07/16/16 10:24; Start 07/16/16 at 10:00; Stop 07/16/16 at 10:59; Status DC Piperacillin Sod/ Tazobactam Sod 100 ml @ 200 mls/hr ONCE ONCE IV Last administered on 07/16/16 10:00; Start 07/16/16 at 10:00; Stop 07/16/16 at 10:29; Status DC Sodium Chloride (NS 1000 ml Inj) 1,000 ml @ 100 mls/hr Q10H IV Last administered on 07/16/16 03:40; Start 07/16/16 at 12:00; Stop 07/17/16 at 10:13; Status DC IV Flush (NS Flush) 2 ml UNSCH PRN FLUSH FLUSH AFTER USING IV ACCESS; Start 07/16/16 at 11:30 IV Flush (NS Flush) 2 ml BID FLUSH Last administered on 07/19/16 08:44; Start 07/16/16 at 21:00 Acetaminophen (Tylenol) 650 mg Q4H PRN PO TEMP>100.4F,PAIN1-10,IRRITABLE; Start 07/16/16 at 11:30 Ondansetron HCl (Zofran Inj) 4 mg Q6H PRN IVP NAUSEA OR VOMITING Last administered on 07/18/16 04:35; Start 07/16/16 at 11:30 Naloxone HCl 0.4 mg 0.4 mg UNSCH PRN IV SEE LABEL COMMENTS; Start 07/16/16 at 11 :30 Piperacillin Sod/ Tazobactam Sod 50 ml @ 100 mls/hr Q6H IV Last administered on 07/18/16 12:20; Start 07/16/16 at 18:00; Stop 07/18/16 at 16:35; Status DC Pharmacy Profile Note 0 ml @ 0 mls/hr UNSCH OTHER ; Start 07/16/16 at 11:30; Stop 07/18/16 at 16:35; Status DC Vancomycin HCl/ Sodium Chloride (Vancomycin Inj/ NS 250 ml Inj) 262.5 ml @ 262.5 mls/ hr Q12H IV Last administered on 07/18/16 08:21; Start 07/16/16 at 21: 00; Stop 07/18/16 at 16:35; Status DC Miscellaneous Information SPECIFIC LAB TO BE ... ONCE ONCE XX Last administered on 07/18/16 08:21; Start 07/18/16 at 08:45; Stop 07/18/16 at 08:46; Status DC Dextrose (D50w (Vial) Inj) 25 ml UNSCH PRN IV PUSH HYPOGLYCEMIA-SEE COMMENTS; Start 07/16/16 at 12:45 Glucagon (Glucagon Inj) 1 mg UNSCH PRN OTHER HYPOGLYCEMIA-SEE COMMENTS; Start 07/16/16 at 12:45 Insulin Aspart (NovoLOG SUPPLEMENTAL SCALE) 1 ACHS SLIDING SCALE SQ Last administered on 07/19/16 11:13; Start 07/16/16 at 16:00 Insulin Detemir (Levemir Inj) 7 units Q12HR SQ Last administered on 07/17/16 09 :00; Start 07/16/16 at 21:00; Stop 07/17/16 at 13:38; Status DC Ketorolac Tromethamine (Toradol Inj) 30 mg Q6H PRN IVP PAIN SCALE 1 TO 5 Last administered on 07/16/16 15:48; Start 07/16/16 at 13:15; Stop 07/16/16 at 16:33; Status DC Acetaminophen/ Hydrocodone Bitart ([place] 5-325 Mg) 1 tab Q4H PRN PO PAIN SCALE 1 TO 5 Last administered on 07/16/16 15:43; Start 07/16/16 at 13:15 Acetaminophen/ Hydrocodone Bitart ([place] 5-325 Mg) 2 tab Q6H PRN PO PAIN SCALE 6 TO 10 Last administered on 07/18/16 08:04; Start 07/16/16 at 13:15 Morphine Sulfate (Morphine Inj) 2 mg Q3H PRN IV PUSH BREAKTHROUGH PAIN Last administered on 07/18/16 17:13; Start 07/16/16 at 13:15 Naloxone HCl (Narcan Inj) 0.4 mg UNSCH PRN IV SEE LABEL COMMENTS; Start at 13:15; Stop 07/16/16 at 13:24; Status DC Ketorolac Tromethamine (Toradol Inj) 30 mg Q6H IVP Last administered on 04:56; Start 07/16/16 at 22:00; Stop 07/21/16 at 21:59; Status Hold Insulin Detemir (Levemir Inj) 10 units Q12HR SQ Last administered on 07/19/16 08:44; Start 07/17/16 at 21:00 Senna/Docusate Sodium 2 tab 2 tab HS PO Last administered on 07/18/16 21:16; Start 07/17/16 at 21:00 Cefepime HCl/ Sodium Chloride (Maxipime Inj/NS Inj) 100 ml @ 200 mls/hr Q12H IV Last administered on 07/19/16 05:01; Start 07/18/16 at 17:00 Ciprofloxacin 500 mg 500 mg Q12HR PO Last administered on 07/19/16 08:44; Start 07/18/16 at 21:00 Sodium Chloride 1,000 ml @ 999 mls/hr BOLUS ONCE IV ; Start 07/19/16 at 11:15; Stop 07/19/16 at 12:15; Status DC Sodium Chloride (NS 1000 ml Inj) 1,000 ml @ 125 mls/hr Q8H IV ; Start 07/19/16 at 12:00 Lisinopril (Prinivil) 10 mg DAILY PO ; Start 07/19/16 at 12:45; Status UNV Clonidine (Catapres) 0.2 mg ONCE ONCE PO ; Start 07/19/16 at 12:45; Stop at 12:46; Status UNV Other Results Laboratory Tests Test 07/18/16 07:00 White Blood Count 10.9 TH/MM3 Red Blood Count 4.05 MIL/MM3 Hemoglobin 11.6 GM/DL Hematocrit 33.5 % Mean Corpuscular Volume 82.8 FL Mean Corpuscular Hemoglobin 28.6 PG Mean Corpuscular Hemoglobin 34.5 % Concent Red Cell Distribution Width 12.5 % Platelet Count 374 TH/MM3 Mean Platelet Volume 8.3 FL Neutrophils (%) (Auto) 71.1 % Lymphocytes (%) (Auto) 19.1 % Monocytes (%) (Auto) 7.6 % Eosinophils (%) (Auto) 1.7 % Basophils (%) (Auto) 0.5 % Neutrophils # (Auto) 7.8 TH/MM3 Lymphocytes # (Auto) 2.1 TH/MM3 Monocytes # (Auto) 0.8 TH/MM3 Eosinophils # (Auto) 0.2 TH/MM3 Basophils # (Auto) 0.1 TH/MM3 CBC Comment DIFF FINAL Differential Comment Laboratory Tests Test 07/18/16 07/19/16 07:00 06:17 Sodium Level 139 MEQ/L 140 MEQ/L Potassium Level 3.7 MEQ/L 3.7 MEQ/L Chloride Level 102 MEQ/L 103 MEQ/L Carbon Dioxide Level 28.1 MEQ/L 28.7 MEQ/L Anion Gap 9 MEQ/L 8 MEQ/L Blood Urea Nitrogen 16 MG/DL 16 MG/DL Creatinine 1.34 MG/DL 1.48 MG/DL Estimat Glomerular Filtration 59 ML/MIN 53 ML/MIN Rate Random Glucose 142 MG/DL 102 MG/DL Calcium Level 8.8 MG/DL 8.7 MG/DL Exam-Podiatry Constitutional General appearance: comfortable Nutritional status: normal Orientation: alert and oriented x3 Dermatological Exam Skin Temp - Right: Within Normal Limits Skin Texture - Right: Within Normal Limits Skin Elasticity - Right: Within Normal Limits Skin Tugor - Right: Within Normal Limits Hair Growth - Right: Within Normal Limits Pigmentation - Right: Within Normal Limits Skin Temp - Left: Within Normal Limits Skin Texture - Left: Within Normal Limits Skin Elasticity - Left: Within Normal Limits Skin Tugor - Left: Within Normal Limits Hair Growth - Left: Within Normal Limits Pigmentation - Left: Within Normal Limits Ulcers: Location/Measurements Ulceration plantar first metatarsal right foot with infection and drainage. Vascular/Lymphatic Exam R Dorsails Pedis: Palpable L Dorsails Pedis: Palpable R Posterior Tibial: Palpable L Posterior Tibial: Palpable Neurologic Exam Present on right: Tingling, Paraesthesia Present on left: Tingling, Paraesthesia Sensation: Light touch: Dimished Pinprick: Dimished Proprioception: Dimished Vibratory: Dimished Musculoskeletal Exam Details Previous amputation of the right hallux Muscle Strength Dorsiflexion (Right): Normal Plantarflexion (Right): Normal Inversion (Right): Normal Eversion (Right): Normal Digital (Right): Normal Dorsiflexion (Left): Normal Plantarflexion (Left): Normal Inversion (Left): Normal Eversion (Left): Normal Digital (Left): Normal Foot Range of Motion Dorsiflexion (Right): Normal Plantarflexion (Right): Normal Inversion (Right): Normal Eversion (Right): Normal Digital (Right): Normal Dorsiflexion (Left): Normal Plantarflexion (Left): Normal Inversion (Left): Normal Eversion (Left): Normal Digital (Left): Normal Assessment & Plan Diagnosis: (1) Diabetic infection of right foot Status: Acute (2) Diabetes type 2, uncontrolled Status: Chronic (3) Osteomyelitis of foot, right, acute Status: Acute A/P PLAN: Patient was put on the schedule for Saturday morning at 10:30 for excision of the first metatarsal. Discussed planned procedure with the patient. ID consultation appreciated. Discussed with Dr. Mejia. Preop orders and consent written. Problem Qualifiers (1) Diabetes type 2, uncontrolled: Qualified Code: E11.42 - Uncontrolled type 2 diabetes mellitus with diabetic polyneuropathy, with long-term current use of insulin Himanshu Ramirez DPM Jul 19, 2016 12:50
[2016-07-19] MEDS: ACETAMINOPHEN/HYDROcodone 325 MG/5 MG TAB PO PRN ×2 (12:58→20:30)
[2016-07-19] MEDS ORDERED: cloNIDine HCL 0.2 MG TAB PO ONE (13:00)
[2016-07-19] MEDS ORDERED: LISINOPRIL 10 MG TAB PO SCH (13:00)
[2016-07-19 13:46] LABS: INTERNATIONAL NORMALIZED RATIO 0.9 RATIO; PROTHROMBIN TIME - PATIENT 10.3 SEC (9.8-11.6)
--- NOTE | 2016-07-19 14:12 | RADRPT ---
EXAM DATE/TIME: 07/19/2016 13:44 [facility] COMPARISON: No previous studies available for comparison. INDICATIONS : Evaluate for pneumonia, pneumothorax, or communicable disease. Pre-op for foot surgery scheduled for tomorrow. MEDICAL HISTORY : None. SURGICAL HISTORY : None. ENCOUNTER: Initial ACUITY: 1 day PAIN SCORE: 0/10 LOCATION: Bilateral chest FINDINGS: PA and lateral views of the chest demonstrate subsegmental airspace disease at the lung bases. No eff usion. No pneumothorax. Heart size within normal limits. CONCLUSION: 1. Subsegmental airspace disease at the lung bases. Differential diagnosis includes atelectasis and b ronchopneumonia. No effusion. Molina Ferrell MD on July 19, 2016 at 14:08 Board Certified Radiologist. This report was verified electronically.
[2016-07-19] MEDS: SODIUM CHLOR 0.9% 1000 ML INJ 1,000 ML IV SCH ×2 (14:45→20:31)
--- NOTE | 2016-07-19 15:30 | HHI.FPPN ---
Subjective Remarks No acute events overnight. Except for some other blood pressure to systolic 140s to 170s, afebrile and vital signs stable. Patient continues to have a chief complaint of right neck/shoulder pain, worse with abduction, reporting that his right foot is without pain, and his headache resolved with medication. (Antoni Tristan MD R1) Objective Vitals Vital Signs Date Time Temp Pulse Resp B/P Pulse Ox O2 Delivery O2 Flow Rate FiO2 07/19/16 12:00 98.6 76 14 168/94 96 07/19/16 08:00 97.9 79 16 172/95 96 07/19/16 05:56 18 07/19/16 04:44 97.8 80 16 142/74 96 07/19/16 00:00 97.5 73 16 131/73 97 07/18/16 20:00 99.1 81 16 144/88 95 07/18/16 16:00 99.2 80 14 153/86 94 I/O 07/18/16 07/18/16 07/18/16 07/19/16 07/19/16 07/19/16 07:00 15:00 23:00 07:00 15:00 23:00 Intake Total 100 ml 360 ml 360 ml 360 ml 600 ml 500 ml Output Total 400 ml 200 ml Balance 100 ml 360 ml -40 ml 160 ml 600 ml 500 ml Intake Oral 100 ml 360 ml 360 ml 240 ml 600 ml IV Total 120 ml 500 ml Output Urine Total 400 ml 200 ml # Voids 3 0 1 # Bowel Movements 0 0 0 0 0 (Antoni Tristan MD R1) Result Diagram: 07/18/16 0700 07/19/16 0617 Imaging Last Impressions Chest X-Ray 07/19/16 0000 Signed Impressions: Service Date/Time: July 13:44 - CONCLUSION: 1. Subsegmental airspace disease at the lung bases. Differential diagnosis includes atelectasis and bronchopneumonia. No effusion. Molina Ferrell MD Shoulder X-Ray 07/17/16 0000 Signed Impressions: Service Date/Time: Sunday, July 17, 2016 17:46 - CONCLUSION: No acute process. Alphonse Boswell MD Tumor Localization 07/16/16 0000 Signed Impressions: Service Date/Time: Saturday, July 16, 2016 14:46 - CONCLUSION: 1. Abnormal air in both the soft tissues of the medial right foot and within the marrow cavity of the first metatarsal which has been amputated distally. There is intense white blood cell activity in the medial right foot and first metatarsal. The findings are characteristic of osteomyelitis of the entire remaining first metatarsal and adjacent cellulitis. 2. Gkal-qj-mlwshoux white blood cell activity is also present around a chronic healing fracture of the proximal second metatarsal. Molina Ferrell MD Foot X-Ray 07/16/16 0000 Signed Impressions: Service Date/Time: Saturday, July 16, 2016 09:23 - CONCLUSION: Findings are concerning for soft tissue infection with subcutaneous emphysema and swelling present. The possibility of infection with gas-forming organism is not excluded. Jacinto Otto MD Objective Remarks Gen.: No acute distress Head: Normocephalic. Atraumatic. EENT: Pupils equal round and reactive to light. Nose without drainage. Airway intact. Cardiovascular: Regular rate and rhythm. No murmurs, rubs or gallops. Respiratory: Lungs clear to auscultation bilaterally. No wheezes or rhonchi. Abdomen: Soft, nontender, nondistended. No peritoneal signs. Musculoskeletal: No gross deformities. No edema. Surgical absence of right great toe. Wound on right foot dressed, dressing clean/dry/intact. Skin: No obvious rashes or erythema. Neuro: Sensory and motor grossly intact. Cranial nerves II through XII grossly intact. Psych: Appropriate mood and affect (Antoni Tristan MD R1) A/P Assessment and Plan 40 yo male with puncture wound right foot 5 days ago, now with swelling , pain, drainage. Admitted for IV antibiotics and Patient was put on the schedule for Saturday at 10:30 for excision of the first metatarsal. Podiatry discussed planned procedure with the patient. ID consultation appreciated. Discharge Planning Pending podiatry recommendations (Antoni Tristan MD R1) Attending Attestation Patient seen and examined. Case reviewed and discussed with the resident team. Agree with plan of care as discussed with me and documented in the resident note. (Astrid Mahoney MD) Problem List: (1) Diabetic infection of right foot Status: Acute Plan: Patient presented with diabetic foot infection, imaging concerning for osteomyelitis. -Podiatry consulted (Dr. Ramirez). Patient was put on the schedule for Renny morning at 10:30 for excision of the first metatarsal. -Tetanus vaccine given -ID consulted: -Vanc and zosyn (07/16 - 07/18) switched to Cipro and cefepime (started 07/19) per ID recommendations -UA and urine eosinophils -May switch antibiotics after surgical intervention -Pain control: Stopped Toradol because patient developing RICKEY; norco 1 tab PO pain 1-5; norco 2 tabs PO pain 6-10; morphine 2 mg breakthrough pain -Wound cultures grew four organisms: Group B beta strep, pansensitive (except for tetracycline) Escherichia coli, pansensitive pseudomonas, pansensitive staph aureus. Susceptibility still pending on group B beta strep and staph aureus -Gram stain of wound shows many gram-positive cocci in pairs and chains with moderate gram-negative rods -WBC scan significant for osteomyelitis (2) Shoulder pain Status: Acute Plan: Patient with right shoulder pain on abduction. He believes it may be from the way that he sleeps. Shoulder x-ray normal. K attilaia (3) HTN (hypertension) Status: Acute Plan: Patient increasingly hypertensive throughout admission to a high of 172/ 95 this morning. Unclear etiology. Pain versus essential hypertension Lisinopril 10 mg by mouth daily Clonidine 0.1 mg by mouth when necessary for systolic blood pressure over 160 or diastolic blood pressure over 90 Hydralazine 10 mg by mouth daily every 8 hours when necessary for systolic blood pressure over 160 or diastolic blood pressure over 90 (4) Abnormal chest x-ray Status: Acute Plan: Chest x-ray concerning for atelectasis versus bronchopneumonia. Patient has been afebrile, without leukocytosis, without cough. -Continue to monitor for signs or symptoms of pneumonia -Patient already on antibiotics -Incentive spirometer (5) RICKEY (acute kidney injury) Status: Acute Plan: Patient developed AK I. Presented with creatinine 0.86, trended up to 1.48 on 07/19/16. Unclear etiology. Could be related to Toradol or vancomycin or prerenal/dehydration given patient's lack of appetite, but this is unlikely given BUN/creatinine ratio. -Stopped vancomycin and Toradol -Gave IV fluid bolus today and started maintenance fluids (6) Diabetes Status: Acute Plan: Blood glucose this morning 139; likely patient has poor glucose control although he states his sugars are normally 125-180 Increase Levemir to 10 units every 12 hours Sliding scale insulin (7) FEN/PPX Status: Acute Plan: Fluids: Normal saline IV at 125 mL per hour Electrolytes: monitor and replace prn Nutrition: diabetic diet PPX: bilateral SCDs (Antoni Tristan MD R1) Problem Qualifiers (1) Diabetes: Qualified Code: E11.8 - Type 2 diabetes mellitus with complication, with long- term current use of insulin Antoni Tristan MD R1 Jul 19, 2016 15:30 Astrid Mahoney MD Jul 19, 2016 16:17
[2016-07-19 16:00] VITALS: BP 121/76; PULSE 66; RESP 16; TEMP 98; O2SAT 96
[2016-07-19 20:00] VITALS: BP 133/81; PULSE 79; RESP 16; TEMP 97.9; O2SAT 97
[2016-07-19] MEDS: DOCUSATE SODIUM 50 MG/SENNA 8.6 MG TAB PO SCH (20:23)
[2016-07-20 00:05] VITALS: BP 154/92; PULSE 72; RESP 16; TEMP 98.9; O2SAT 94
[2016-07-20 04:00] VITALS: BP 159/97; PULSE 73; RESP 16; TEMP 98.3; O2SAT 94
[2016-07-20] MEDS: CEFEPIME INJ 2,000 MG in SODIUM CHLORIDE 0.9% INJ 100 ML IV SCH ×2 (04:25→18:04)
[2016-07-20] MEDS: SODIUM CHLOR 0.9% 1000 ML INJ 1,000 ML IV SCH ×3 (04:26→22:56)
[2016-07-20] MEDS: INSULIN ASPART SUPPLEMENTAL SCALE SQ SCH ×4 (04:29→22:59)
[2016-07-20 07:26] LABS: BICARBONATE 26.7 MEQ/L (21.0-32.0)
[2016-07-20 08:00] VITALS: BP 184/96; PULSE 75; RESP 18; TEMP 100; O2SAT 96
--- NOTE | 2016-07-20 08:30 | HHI.FPPN ---
Subjective Remarks She is doing well this morning. He still complains of right shoulder pain. He understands this will be worked up as an outpatient with sports medicine. Denies fever, chills, nausea, vomiting, abdominal pain, chest pain, shortness of breath. He is looking forward to the completion of surgery this morning. ( Haider Mahoney MD R2) Objective Vitals Vital Signs Date Time Temp Pulse Resp B/P Pulse Ox O2 Delivery O2 Flow Rate FiO2 07/20/16 04:00 98.3 73 16 159/97 94 07/20/16 00:05 98.9 72 16 154/92 94 07/19/16 22:23 16 07/19/16 20:00 97.9 79 16 133/81 97 07/19/16 16:00 98.0 66 16 121/76 96 07/19/16 12:00 98.6 76 14 168/94 96 I/O 07/19/16 07/19/16 07/19/16 07/20/16 07/20/16 07/20/16 07:00 15:00 23:00 07:00 15:00 23:00 Intake Total 360 ml 600 ml 850 ml Output Total 200 ml Balance 160 ml 600 ml 850 ml Intake Oral 240 ml 600 ml 350 ml IV Total 120 ml 500 ml Output Urine Total 200 ml # Voids 1 1 # Bowel Movements 0 0 0 (Haider Mahoney MD R2) Result Diagram: 07/18/16 0700 07/20/16 0635 Objective Remarks Gen.: No acute distress Head: Normocephalic. Atraumatic. EENT: Pupils equal round and reactive to light. Nose without drainage. Airway intact. Cardiovascular: Regular rate and rhythm. No murmurs, rubs or gallops. Respiratory: Lungs clear to auscultation bilaterally. No wheezes or rhonchi. Abdomen: Soft, nontender, nondistended. No peritoneal signs. Musculoskeletal: No gross deformities. No edema. Surgical absence of right great toe. Wound on right foot dressed, dressing clean/dry/intact. Skin: No obvious rashes or erythema. Neuro: Sensory and motor grossly intact. Cranial nerves II through XII grossly intact. Psych: Appropriate mood and affect (Haider Mahoney MD R2) A/P Assessment and Plan 40 yo male with puncture wound right foot. Admitted for IV antibiotics and Patient was put on the schedule for Saturday at 10:30 for excision of the first metatarsal. Podiatry discussed planned procedure with the patient. ID consultation appreciated. Discharge Planning Pending podiatry recommendations PT recommends home with home health PT (Haider Mahoney MD R2) Attending Attestation Patient seen and examined. Case reviewed and discussed with the resident team. Agree with plan of care as discussed with me and documented in the resident note. (Astrid Mahoney MD) Problem List: (1) Diabetic infection of right foot Status: Acute Plan: Patient presented with diabetic foot infection, imaging concerning for osteomyelitis. -Podiatry consulted (Dr. Ramirez). Patient was put on the schedule for Saturday at 10:30 for excision of the first metatarsal. -Tetanus vaccine given -ID consulted: -Cipro and cefepime (started 07/19) per ID recommendations -May switch antibiotics after surgical intervention -Pain control: Stopped Toradol because patient developing RICKEY; norco 1 tab PO pain 1-5; norco 2 tabs PO pain 6-10; morphine 2 mg breakthrough pain -Wound cultures grew four organisms: Group B beta strep, pansensitive (except for tetracycline) Escherichia coli, pansensitive pseudomonas, pansensitive staph aureus. Susceptibility noted in EMR. -WBC scan significant for osteomyelitis Abx history: -Vanc and zosyn (07/16 - 07/18) (2) Shoulder pain Status: Acute Plan: Patient with right shoulder pain on abduction. He believes it may be from the way that he sleeps. Shoulder x-ray normal. K sybil -Outpatient sports medicine referral (3) HTN (hypertension) Status: Acute Plan: Patient increasingly hypertensive throughout admission. Pain versus essential hypertension Lisinopril 10 mg by mouth daily; patient should be continued on lisinopril as outpatient given he is diabetic. Clonidine 0.1 mg by mouth when necessary for systolic blood pressure over 160 or diastolic blood pressure over 90 Hydralazine 10 mg by mouth daily every 8 hours when necessary for systolic blood pressure over 160 or diastolic blood pressure over 90 (4) Abnormal chest x-ray Status: Acute Plan: Chest x-ray concerning for atelectasis versus bronchopneumonia. Patient has been afebrile, without leukocytosis, without cough. -Continue to monitor for signs or symptoms of pneumonia -Patient already on antibiotics -Incentive spirometer (5) RICKEY (acute kidney injury) Status: Acute Plan: Slightly improved this morning. -Continue IV hydration -Stopped vancomycin and Toradol (6) Diabetes Status: Acute Plan: Glucose under better control with current regimen Increased Levemir to 10 units every 12 hours Sliding scale insulin Continue lisinopril as outpatient (7) FEN/PPX Status: Acute Plan: Fluids: Normal saline IV at 125 mL per hour Electrolytes: monitor and replace prn Nutrition: diabetic diet PPX: bilateral SCDs (Haider Mahoney MD R2) Problem Qualifiers (1) Diabetes: Qualified Code: E11.8 - Type 2 diabetes mellitus with complication, with long- term current use of insulin Haider Mahoney MD R2 Jul 20, 2016 08:30 Astrid Mahoney MD Jul 20, 2016 09:07
[2016-07-20] MEDS: INSULIN DETEMIR 100 UNITS/ML VIAL SQ SCH ×2 (09:00→22:56)
[2016-07-20] MEDS: CIPROFLOXACIN 500 MG TAB PO SCH ×2 (09:00→22:55)
[2016-07-20] MEDS: SODIUM CHLORIDE 0.9% FLUSH 5 ML FLUSH FLUSH SCH ×2 (09:00→21:00)
[2016-07-20] MEDS ORDERED: BUPIVACAINE HCL PF 0.5% 30 ML VIAL ONE (09:07)
[2016-07-20] MEDS ORDERED: FAMOTIDINE 20 MG/2 ML VIAL ONE (10:03)
[2016-07-20] MEDS ORDERED: METOCLOPRAMIDE HCL 10 MG/2 ML VIAL ONE (10:04)
[2016-07-20] MEDS: ONDANSETRON HCL 4 MG/2 ML VIAL IVP PRN (10:06)
[2016-07-20] MEDS ORDERED: Post-op Orders (for Pharmacy) MISC XX ONE (11:30)
[2016-07-20] MEDS ORDERED: MORPHINE SULFATE 4 MG/ML INJ IV PRN ×2 (11:30)
[2016-07-20] MEDS ORDERED: SODIUM CHLORIDE 0.9% FLUSH 5 ML FLUSH IVF PRN (11:30)
[2016-07-20] MEDS ORDERED: NALOXONE HCL 0.4 MG/ML AMP IV PRN (11:30)
[2016-07-20] MEDS ORDERED: MIDAZOLAM HCL 2 MG/2 ML VIAL ONE (11:40)
--- NOTE | 2016-07-20 11:40 | PD.OP ---
Operative Report Date of Surgery: Jul 20, 2016 Preoperative Diagnosis: (1) Diabetic infection of right foot (2) Osteomyelitis of foot, right, acute Postoperative Diagnosis: (1) Osteomyelitis of foot, right, acute Procedure: Resection of first metatarsal with debridement of wound right foot Anesthesia: Gen. Surgeon: Himanshu Ramirez DPM E Commerce Strategist(s): lenin De León student year 4 Operation and Findings: Patient is brought to the operating room placed on the operating table in the supine position. Pneumatic ankle cuff was placed around the patient's right ankle after adequate web padding. Patient was given general inhalation anesthesia and the right foot was prepped and draped in the usual sterile manner. Right foot was elevated above the operating table for a period of 3 minutes at which time after the appropriate timeout was performed the pneumatic ankle cuff was inflated to 250 mm meters of mercury. The foot was lowered to the operating table and attention was directed to the first ray. Patient had a puncture wound abscess ulceration on the plantar aspect of the remaining first metatarsal. Patient had had previous amputation of the right hallux. Preoperative bone scanning showed osteomyelitis of the entire first metatarsal. At this time a 7 cm linear incision was made over the remaining first metatarsal dorsally medial to the extensor longus tendon. The incision was deepened using sharpn dissection. Using sharp and blunt dissection the remaining first metatarsal was freed up from its attachments and delivered into the wound. Some of the bone from the distal first metatarsal was sent for culture and sensitivity. The area was flushed with copious amounts of sterile saline. The plantar puncture site was excised. Subcutaneous tissue was reapproximated and closed with 2-0 Vicryl. Skin edges were reapproximated and closed with surgical skin luis. The area was anesthetized with 10 cc of 0.5% Marcaine plain. The pneumatic ankle cuff was deflated and the incision site was dressed with Adaptic 4 x 4's Jerman and an Inocencio bandage. Estimated blood loss was less than 5 cc. Bone was sent for culture and sensitivity and for permanent path. Sponge and instrument count was noted to be correct. Patient tolerated the procedures and anesthesia well and left the OR to PACU in apparent satisfactory condition with all vital signs stable and the vascular status intact to the remaining digits of the right foot Himanshu Ramirez DPM Jul 20, 2016 11:40
[2016-07-20] MEDS ORDERED: fentaNYL CITRATE 250 MCG/5 ML AMP ONE (11:41)
[2016-07-20] MEDS: ACETAMINOPHEN 1000 MG/100 ML VIAL IV SCH ×3 (11:53→22:57)
[2016-07-20 12:00] VITALS: BP 164/93; PULSE 75; RESP 16; TEMP 96.7; O2SAT 95
[2016-07-20] MEDS ORDERED: PHENYLEPH/NS 1000 MCG/10 ML SYR IV ONE (12:00)
[2016-07-20] MEDS ORDERED: DO NOT ADM ANY ANTICOAGULANT DRUGS XX PRN (12:00)
[2016-07-20] MEDS ORDERED: ePHEDrine/NS 50 MG/5 ML SYR IV ONE (12:00)
[2016-07-20] MEDS ORDERED: PROPOFOL 200 MG/20 ML AMP IV ONE (12:00)
[2016-07-20] MEDS ORDERED: LACTATED RINGER'S 1000 ML INJ 1,000 ML IV ONE (12:00)
--- NOTE | 2016-07-20 13:52 | RADRPT ---
EXAM DATE/TIME: 07/20/2016 11:52 [facility] COMPARISON: CHEST PA & LAT, July 19, 2016, 13:44. INDICATIONS : Post op right foot surgery. MEDICAL HISTORY : Diabetes mellitus type II. SURGICAL HISTORY : Right foot . ENCOUNTER: Subsequent ACUITY: 3 days PAIN SCORE: 0/10 LOCATION: Right Foot. FINDINGS: 2 views of the foot demonstrate amputation of the first digit. There are skin luis in place. There is some gas in subcutaneous tissues. There are old, healed fractures of the second third and fourth digits. There is a small exostosis off the fifth digit. CONCLUSION: 1. Postsurgical changes and old fractures as above. Estuardo Davis MD on July 20, 2016 at 13:49 Board Certified Radiologist. This report was verified electronically.
--- NOTE | 2016-07-20 14:30 | EKG ---
Date Performed: 07/19/2016 Time Performed: 13:06:15 PTAGE: 40 years EKG: Sinus rhythm NORMAL ECG NO PREVIOUS TRACING DOCTOR: Summer Kellogg Interpretating Date/Time 07/20/2016 14:22:59
--- NOTE | 2016-07-20 15:52 | HHI.IDPN ---
Subjective Subjective Remarks Notes reviewed D/W Dr Ramirez yesterday Had OR today - resection of first MT bone, debridement Had low grade temps this morning UA ok Urine eos negative Antibiotics Cefepime Cipro Past Medical History Diabetes Allergies: Coded Allergies: No Known Allergies (Unverified , 07/16/16) Objective . Vital Signs Date Time Temp Pulse Resp B/P Pulse Ox O2 Delivery O2 Flow Rate FiO2 07/20/16 12:23 18 07/20/16 12:00 96.7 75 16 164/93 95 07/20/16 12:00 80 16 167/92 95 Nasal Cannula 3 07/20/16 11:45 80 16 150/83 93 Nasal Cannula 3 07/20/16 11:32 98.5 81 16 126/67 96 Nasal Cannula 3 07/20/16 08:00 100.0 75 18 184/96 96 07/20/16 04:00 98.3 73 16 159/97 94 07/20/16 00:05 98.9 72 16 154/92 94 07/19/16 22:23 16 07/19/16 20:00 97.9 79 16 133/81 97 07/19/16 16:00 98.0 66 16 121/76 96 07/19/16 07/19/16 07/20/16 15:00 23:00 07:00 Intake Total 600 ml 850 ml Balance 600 ml 850 ml Intake Oral 600 ml 350 ml IV Total 500 ml # Voids 1 1 # Bowel Movements 0 0 . Laboratory Tests Test 07/19/16 07/20/16 06:17 06:35 Sodium Level 140 MEQ/L 142 MEQ/L Potassium Level 3.7 MEQ/L 4.0 MEQ/L Chloride Level 103 MEQ/L 107 MEQ/L Carbon Dioxide Level 28.7 MEQ/L 26.7 MEQ/L Anion Gap 8 MEQ/L 8 MEQ/L Blood Urea Nitrogen 16 MG/DL 14 MG/DL Creatinine 1.48 MG/DL 1.39 MG/DL Estimat Glomerular Filtration 53 ML/MIN 57 ML/MIN Rate Random Glucose 102 MG/DL 127 MG/DL Calcium Level 8.7 MG/DL 8.5 MG/DL Microbiology Date/Time Procedure Status Source Growth 07/20/16 11:07 Gram Stain Worksheet Wound Other Pending 07/20/16 11:07 Wound Culture Worksheet Wound Other Pending 07/20/16 11:07 Acid Fast Stain Received Wound Other Pending 07/20/16 11:07 Mycobacterial Culture Received Wound Other Pending 07/20/16 11:07 Fungal Smear Received Wound Other Pending 07/20/16 11:07 Fungal Culture Received Wound Other Pending Imaging Foot X-Ray 07/20/16 0000 Signed Impressions: Service Date/Time: Wednesday, July 20, 2016 11:52 - CONCLUSION: 1. Postsurgical changes and old fractures as above. Estuardo Davis MD Chest X-Ray 07/19/16 0000 Signed Impressions: Service Date/Time: July 13:44 - CONCLUSION: 1. Subsegmental airspace disease at the lung bases. Differential diagnosis includes atelectasis and bronchopneumonia. No effusion. Molina Ferrell MD Shoulder X-Ray 07/17/16 0000 Signed Impressions: Service Date/Time: Sunday, July 17, 2016 17:46 - CONCLUSION: No acute process. Alphonse Boswell MD Tumor Localization 07/16/16 0000 Signed Impressions: Service Date/Time: Saturday, July 16, 2016 14:46 - CONCLUSION: 1. Abnormal air in both the soft tissues of the medial right foot and within the marrow cavity of the first metatarsal which has been amputated distally. There is intense white blood cell activity in the medial right foot and first metatarsal. The findings are characteristic of osteomyelitis of the entire remaining first metatarsal and adjacent cellulitis. 2. Ogxn-zx-rvctqymw white blood cell activity is also present around a chronic healing fracture of the proximal second metatarsal. Molina Ferrell MD Physical Exam GENERAL: awake and alert, in no apparent distress. SKIN: Warm and dry. No generalized rash HEENT: [place] conjunctivae. No scleral icterus. Moist oral mucosa. NECK: Supple, nontender, no meningeal signs. CARDIOVASCULAR: Regular rate and rhythm without murmurs, gallops, or rubs. RESPIRATORY: Clear to auscultation. Breath sounds equal bilaterally. No wheezes , rales, or rhonchi. GASTROINTESTINAL: Abdomen soft, non-tender, nondistended. Bowel sounds are present and normoactive. No hepato-splenomegaly, or palpable masses. No guarding. MUSCULOSKELETAL: Extremities without clubbing, cyanosis, or edema. Dressing to foot dry and intact NEUROLOGICAL: Non-focal PSYCH: Normal affect, calm and cooperative LINE: PIV with no evidence of infection Assessment & Plan Remarks IMPRESSION Diabetic foot infection R, from puncture wound (nail), C/S polymicrobial, with osteomyelitis first MT - S/P removal of first MT Renal insufficiency, etiology? - ?meds - ?Vancomycin RECOMMENDATION Continue Cefepime and Cipro Follow new C/S Should be able to D/C on po Cipro whenn ok with podiatry - at least 7 days I will see patient Saturday if still in house Leticia Mejia MD Jul 20, 2016 15:51
[2016-07-20 16:00] VITALS: BP 179/104; PULSE 73; RESP 18; TEMP 97.5; O2SAT 95
[2016-07-20 20:00] VITALS: BP 164/94; PULSE 73; RESP 18; TEMP 97.2; O2SAT 95
[2016-07-20] MEDS ORDERED: SODIUM CHLORIDE 0.9% FLUSH 5 ML FLUSH IVF SCH (21:00)
[2016-07-20] MEDS: cloNIDine HCL 0.1 MG TAB PO PRN (22:55)
[2016-07-20] MEDS: DOCUSATE SODIUM 50 MG/SENNA 8.6 MG TAB PO SCH (22:55)
[2016-07-21] VITALS (7 sets, daily range): BP systolic 151–184; BP diastolic 84–95; PULSE 67–83; RESP 16–18; TEMP 97.2–99.4; O2SAT 93–97
[2016-07-21] MEDS: SODIUM CHLOR 0.9% 1000 ML INJ 1,000 ML IV SCH ×3 (04:35→18:16)
[2016-07-21] MEDS: ACETAMINOPHEN 1000 MG/100 ML VIAL IV SCH (04:36)
[2016-07-21] MEDS: CEFEPIME INJ 2,000 MG in SODIUM CHLORIDE 0.9% INJ 100 ML IV SCH ×2 (04:36→16:25)
[2016-07-21] MEDS: INSULIN ASPART SUPPLEMENTAL SCALE SQ SCH ×4 (04:43→20:53)
[2016-07-21 08:07] LABS: AUTOMATED NEUTROPHIL # 5.5 TH/MM3 (1.8-7.7); BASOPHIL # 0.1 TH/MM3 (0-0.2); BASOPHIL % 0.9 % (0.0-2.0); EOSINOPHIL # 0.2 TH/MM3 (0-0.4); EOSINOPHIL % 2.7 % (0.0-4.0); HEMATOCRIT 31.3 % (39.0-51.0); HEMO FLAGS DIFF FINAL; LYMPH % 20.7 % (9.0-44.0); LYMPHOCYTE # 1.7 TH/MM3 (1.0-4.8); MEAN CELL VOLUME 83.2 FL (80.0-100.0); MEAN CORPUSCULAR HEMOGLOBIN 28.6 PG (27.0-34.0); MEAN CORPUSCULAR HGB CONC 34.4 % (32.0-36.0); MONO % 7.4 % (0.0-8.0); NEUT % 68.3 % (16.0-70.0); PLATELET COUNT 526 TH/MM3 (150-450); RED BLOOD COUNT 3.77 MIL/MM3 (4.50-5.90); RED CELL DISTRIBUTION WIDTH 12.3 % (11.6-17.2)
[2016-07-21 08:30] LABS: POTASSIUM 3.9 MEQ/L (3.5-5.1)
[2016-07-21] MEDS: SODIUM CHLORIDE 0.9% FLUSH 5 ML FLUSH FLUSH SCH ×2 (09:00→20:52)
[2016-07-21] MEDS: CIPROFLOXACIN 500 MG TAB PO SCH ×2 (09:24→20:53)
[2016-07-21] MEDS: INSULIN DETEMIR 100 UNITS/ML VIAL SQ SCH ×2 (09:25→20:53)
--- NOTE | 2016-07-21 09:51 | PD.POD ---
Subjective Podiatric Problems Diabetic male with peripheral neuropathy History of hallux amputation right foot "Puncture wound "right plantar first met area with abscess. 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 Patient is here from [place] doing [employer] jobs. Claims he was walking on the beach barefoot approximately 6 days ago and stepped on a nail. He developed redness and swelling and drainage from the right foot. Radiograph showed some soft tissue are which is most likely from probing the area. ordered a [email or web address] labeled white blood cell scan which showed osteomyelitis of the first metatarsal. He is one day status post excision of the first metatarsal right foot with excision of puncture wound Past Med/Surg/Social History Past Medical History PFS Reviewed: Yes Endocrine: REPORTS HX OF: Diabetes mellitus Neurologic: REPORTS HX OF: Peripheral neuropathy Past Surgical History Musculoskeletal: REPORTS HX OF: Other musculoskeletal srg (right hallux amputation) Social History Smoking Status: Never Smoker Review of Systems Notes No changes in the patient's 14 point review of systems exam since yesterday Objective Vital Signs Vital Signs Date Time Temp Pulse Resp B/P Pulse Ox O2 Delivery O2 Flow Rate FiO2 07/21/16 08:00 97.8 67 18 154/90 96 07/21/16 05:42 18 07/21/16 04:00 97.2 73 18 161/95 94 07/21/16 00:00 97.9 83 18 165/90 94 07/20/16 23:29 16 07/20/16 20:00 97.2 73 18 164/94 95 07/20/16 16:00 97.5 73 18 179/104 95 07/20/16 12:00 96.7 75 16 164/93 95 07/20/16 12:00 80 16 167/92 95 Nasal Cannula 3 07/20/16 11:45 80 16 150/83 93 Nasal Cannula 3 07/20/16 11:32 98.5 81 16 126/67 96 Nasal Cannula 3 Coded Allergies: No Known Allergies (Unverified , 07/16/16) Medications and IVs Current Medications Diphtheria/ Tetanus/Acell Pertussis (Boostrix Inj) 0.5 ml ONCE ONCE IM Last administered on 07/16/16t 09:33; Start 07/16/16 at 09:15; Stop 07/16/16 at 09:16; Status DC Acetaminophen 650 mg 650 mg ONCE ONCE PO Last administered on 07/16/16 10:23; Start 07/16/16 at 10:00; Stop 07/16/16 at 10:01; Status DC Vancomycin HCl 1000 mg/Sodium Chloride 250 ml @ 250 mls/hr ONCE ONCE IV Last administered on 07/16/16 10:24; Start 07/16/16 at 10:00; Stop 07/16/16 at 10:59; Status DC Piperacillin Sod/ Tazobactam Sod 100 ml @ 200 mls/hr ONCE ONCE IV Last administered on 07/16/16 10:00; Start 07/16/16 at 10:00; Stop 07/16/16 at 10:29; Status DC Sodium Chloride (NS 1000 ml Inj) 1,000 ml @ 100 mls/hr Q10H IV Last administered on 07/16/16 03:40; Start 07/16/16 at 12:00; Stop 07/17/16 at 10:13; Status DC IV Flush (NS Flush) 2 ml UNSCH PRN FLUSH FLUSH AFTER USING IV ACCESS; Start 07/16/16 at 11:30 IV Flush (NS Flush) 2 ml BID FLUSH Last administered on 07/20/16 21:00; Start 07/16/16 at 21:00 Acetaminophen (Tylenol) 650 mg Q4H PRN PO TEMP>100.4F,PAIN1-10,IRRITABLE; Start 07/16/16 at 11:30 Ondansetron HCl (Zofran Inj) 4 mg Q6H PRN IVP NAUSEA OR VOMITING Last administered on 07/20/16 10:06; Start 07/16/16 at 11:30 Naloxone HCl 0.4 mg 0.4 mg UNSCH PRN IV SEE LABEL COMMENTS; Start 07/16/16 at 11 :30 Piperacillin Sod/ Tazobactam Sod 50 ml @ 100 mls/hr Q6H IV Last administered on 07/18/16 12:20; Start 07/16/16 at 18:00; Stop 07/18/16 at 16:35; Status DC Pharmacy Profile Note 0 ml @ 0 mls/hr UNSCH OTHER ; Start 07/16/16 at 11:30; Stop 07/18/16 at 16:35; Status DC Vancomycin HCl/ Sodium Chloride (Vancomycin Inj/ NS 250 ml Inj) 262.5 ml @ 262.5 mls/ hr Q12H IV Last administered on 07/18/16 08:21; Start 07/16/16 at 21: 00; Stop 07/18/16 at 16:35; Status DC Miscellaneous Information SPECIFIC LAB TO BE VENU... ONCE ONCE XX Last administered on 07/18/16 08:21; Start 07/18/16 at 08:45; Stop 07/18/16 at 08:46; Status DC Dextrose (D50w (Vial) Inj) 25 ml UNSCH PRN IV PUSH HYPOGLYCEMIA-SEE COMMENTS; Start 07/16/16 at 12:45 Glucagon (Glucagon Inj) 1 mg UNSCH PRN OTHER HYPOGLYCEMIA-SEE COMMENTS; Start 07/16/16 at 12:45 Insulin Aspart (NovoLOG SUPPLEMENTAL SCALE) 1 ACHS SLIDING SCALE SQ Last administered on 07/21/16 04:43; Start 07/16/16 at 16:00 Insulin Detemir (Levemir Inj) 7 units Q12HR SQ Last administered on 07/17/16 09 :00; Start 07/16/16 at 21:00; Stop 07/17/16 at 13:38; Status DC Ketorolac Tromethamine (Toradol Inj) 30 mg Q6H PRN IVP PAIN SCALE 1 TO 5 Last administered on 07/16/16 15:48; Start 07/16/16 at 13:15; Stop 07/16/16 at 16:33; Status DC Acetaminophen/ Hydrocodone Bitart (Formoso 5-325 Mg) 1 tab Q4H PRN PO PAIN SCALE 1 TO 5 Last administered on 07/16/16 15:43; Start 07/16/16 at 13:15 Acetaminophen/ Hydrocodone Bitart (Formoso 5-325 Mg) 2 tab Q6H PRN PO PAIN SCALE 6 TO 10 Last administered on 07/19/16 20:30; Start 07/16/16 at 13:15 Morphine Sulfate (Morphine Inj) 2 mg Q3H PRN IV PUSH BREAKTHROUGH PAIN Last administered on 07/18/16 17:13; Start 07/16/16 at 13:15 Naloxone HCl (Narcan Inj) 0.4 mg UNSCH PRN IV SEE LABEL COMMENTS; Start at 13:15; Stop 07/16/16 at 13:24; Status DC Ketorolac Tromethamine (Toradol Inj) 30 mg Q6H IVP Last administered on 04:56; Start 07/16/16 at 22:00; Stop 07/21/16 at 21:59; Status Hold Insulin Detemir (Levemir Inj) 10 units Q12HR SQ Last administered on 07/21/16 09:25; Start 07/17/16 at 21:00 Senna/Docusate Sodium 2 tab 2 tab HS PO Last administered on 07/20/16 22:55; Start 07/17/16 at 21:00 Cefepime HCl/ Sodium Chloride (Maxipime Inj/NS Inj) 100 ml @ 200 mls/hr Q12H IV Last administered on 07/21/16 04:36; Start 07/18/16 at 17:00 Ciprofloxacin 500 mg 500 mg Q12HR PO Last administered on 07/21/16 09:24; Start 07/18/16 at 21:00 Sodium Chloride 1,000 ml @ 999 mls/hr BOLUS ONCE IV Last administered on 12:48; Start 07/19/16 at 11:15; Stop 07/19/16 at 12:15; Status DC Sodium Chloride (NS 1000 ml Inj) 1,000 ml @ 125 mls/hr Q8H IV Last administered on 07/21/16 04:35; Start 07/19/16 at 12:00 Lisinopril (Prinivil) 10 mg DAILY PO Last administered on 07/19/16 13:23; Start 07/19/16 at 13:00; Stop 07/20/16 at 08:02; Status DC Clonidine (Catapres) 0.2 mg ONCE ONCE PO Last administered on 07/19/16 12:56; Start 07/19/16 at 13:00; Stop 07/19/16 at 13:01; Status DC Clonidine (Catapres) 0.1 mg Q6H PRN PO SBP>160, DBP>90 Last administered on 07/20 22:55; Start 07/19/16 at 16:00 Hydralazine HCl (Apresoline) 10 mg Q8HR PRN PO SBP>160, DBP>90; Start 07/19/16 at 16:00 Bupivacaine HCl (Marcaine Pf 0.5% Inj) 30 ml STK-MED ONCE .ROUTE Last administered on 07/20/16 10:51; Start 07/20/16 at 09:07; Stop 07/20/16 at 09:11; Status DC Famotidine (Pepcid Inj) 20 mg STK-MED ONCE .ROUTE Last administered on 10:05; Start 07/20/16 at 10:03; Stop 07/20/16 at 10:04; Status DC Metoclopramide HCl (Reglan Inj) 10 mg STK-MED ONCE .ROUTE Last administered on 07/20/16 10:07; Start 07/20/16 at 10:04; Stop 07/20/16 at 10:05; Status DC IV Flush (NS Flush) 2 ml UNSCH PRN IVF FLUSH AFTER USING IV ACCESS; Start at 11:30; Status UNV IV Flush (NS Flush) 2 ml BID IVF ; Start 07/20/16 at 21:00; Status UNV Miscellaneous Information (Post-op Orders (for Pharmacy)) STAT ONCE XX ; Start 07/20/16 at 11:30; Stop 07/20/16 at 11:50; Status DC Morphine Sulfate (Morphine Inj) 4 mg Q3H PRN IV Pain 6-10;if unable to take PO ; Start 07/20/16 at 11:30 Acetaminophen (Ofirmev Inj) 1,000 mg Q6H IV Last administered on 07/21/16 04:36 ; Start 07/20/16 at 12:00; Stop 07/21/16 at 06:01; Status DC Morphine Sulfate (Morphine Inj) 4 mg Q3H PRN IV BREAKTHROUGH PAIN; Start at 11:30 Oxycodone HCl (Roxicodone) 5 mg Q4H PRN PO PAIN SCALE 3 TO 5 Last administered on 07/20/16 22:55; Start 07/20/16 at 11:30 Naloxone HCl (Narcan Inj) 0.4 mg UNSCH PRN IV SEE LABEL COMMENTS; Start at 11:30 Midazolam HCl (Versed Inj) 2 mg STK-MED ONCE .ROUTE ; Start 07/20/16 at 11:40; Stop 07/20/16 at 11:41; Status DC Fentanyl Citrate (fentaNYL INJ) 250 mcg STK-MED ONCE .ROUTE ; Start 07/20/16 at 11:41; Stop 07/20/16 at 11:42; Status DC Miscellaneous Information ALL NURSING DEPARTME... UNSCH PRN XX SEE LABEL COMMENTS; Start 07/20/16 at 12:00; Stop 07/21/16 at 11:59 Other Results Laboratory Tests Test 07/21/16 06:55 White Blood Count 8.0 TH/MM3 Red Blood Count 3.77 MIL/MM3 Hemoglobin 10.8 GM/DL Hematocrit 31.3 % Mean Corpuscular Volume 83.2 FL Mean Corpuscular Hemoglobin 28.6 PG Mean Corpuscular Hemoglobin 34.4 % Concent Red Cell Distribution Width 12.3 % Platelet Count 526 TH/MM3 Mean Platelet Volume 7.7 FL Neutrophils (%) (Auto) 68.3 % Lymphocytes (%) (Auto) 20.7 % Monocytes (%) (Auto) 7.4 % Eosinophils (%) (Auto) 2.7 % Basophils (%) (Auto) 0.9 % Neutrophils # (Auto) 5.5 TH/MM3 Lymphocytes # (Auto) 1.7 TH/MM3 Monocytes # (Auto) 0.6 TH/MM3 Eosinophils # (Auto) 0.2 TH/MM3 Basophils # (Auto) 0.1 TH/MM3 CBC Comment DIFF FINAL Differential Comment Laboratory Tests Test 07/20/16 07/21/16 06:35 06:55 Sodium Level 142 MEQ/L 141 MEQ/L Potassium Level 4.0 MEQ/L 3.9 MEQ/L Chloride Level 107 MEQ/L 107 MEQ/L Carbon Dioxide Level 26.7 MEQ/L 28.0 MEQ/L Anion Gap 8 MEQ/L 6 MEQ/L Blood Urea Nitrogen 14 MG/DL 11 MG/DL Creatinine 1.39 MG/DL 1.35 MG/DL Estimat Glomerular Filtration 57 ML/MIN 59 ML/MIN Rate Random Glucose 127 MG/DL 193 MG/DL Calcium Level 8.5 MG/DL 8.6 MG/DL Microbiology Date/Time Procedure Status Source Growth 07/20/16 11:07 Gram Stain - Final Resulted Wound Other 07/20/16 11:07 Wound Culture Resulted Wound Other Pending 07/20/16 11:07 Acid Fast Stain Received Wound Other Pending 07/20/16 11:07 Mycobacterial Culture Received Wound Other Pending 07/20/16 11:07 Fungal Smear - Final Resulted Wound Other NO FUNGAL ELEMENTS SEEN. 07/20/16 11:07 Fungal Culture Resulted Wound Other Pending Exam-Podiatry Constitutional General appearance: comfortable Nutritional status: normal Orientation: alert and oriented x3 Dermatological Exam Skin Temp - Right: Within Normal Limits Skin Texture - Right: Within Normal Limits Skin Elasticity - Right: Within Normal Limits Skin Tugor - Right: Within Normal Limits Hair Growth - Right: Within Normal Limits Pigmentation - Right: Within Normal Limits Skin Temp - Left: Within Normal Limits Skin Texture - Left: Within Normal Limits Skin Elasticity - Left: Within Normal Limits Skin Tugor - Left: Within Normal Limits Hair Growth - Left: Within Normal Limits Pigmentation - Left: Within Normal Limits Other: Scars, Surgery,Injury Dressing to right foot is dry and intact. No strike through bleeding noted. Toes are warm, pink and herson upon compression Vascular/Lymphatic Exam R Dorsails Pedis: Palpable L Dorsails Pedis: Palpable R Posterior Tibial: Palpable L Posterior Tibial: Palpable Neurologic Exam Present on right: Tingling, Paraesthesia Present on left: Burning, Paraesthesia Assessment & Plan Diagnosis: (1) Diabetic infection of right foot Status: Acute (2) Diabetes type 2, uncontrolled Status: Chronic (3) Osteomyelitis of foot, right, acute Status: Acute A/P PLAN: I will change his dressing tomorrow and evaluate the wound for possible discharge Saturday. Nonweightbearing right foot. Problem Qualifiers (1) Diabetes type 2, uncontrolled: Qualified Code: E11.42 - Uncontrolled type 2 diabetes mellitus with diabetic polyneuropathy, with long-term current use of insulin Himanshu Ramirez DPM Jul 21, 2016 09:51
--- NOTE | 2016-07-21 10:45 | HHI.FPPN ---
Subjective Remarks Patient was taken to the OR yesterday. He reports that went well. No acute events overnight. Except for some blood pressures to the 160s systolic, afebrile and vital signs stable. Patient still reports decreased appetite. He reports of his pain is well-controlled. He denies any nausea or vomiting. He reports that he has had a bowel movement since surgery. Patient still complaining of pain in his right chest, neck and shoulder. He requested a topical cream for this pain. (Antoni Tristan MD R1) Objective Vitals Vital Signs Date Time Temp Pulse Resp B/P Pulse Ox O2 Delivery O2 Flow Rate FiO2 07/21/16 08:00 97.8 67 18 154/90 96 07/21/16 05:42 18 07/21/16 04:00 97.2 73 18 161/95 94 07/21/16 00:00 97.9 83 18 165/90 94 07/20/16 23:29 16 07/20/16 20:00 97.2 73 18 164/94 95 07/20/16 16:00 97.5 73 18 179/104 95 07/20/16 12:00 96.7 75 16 164/93 95 07/20/16 12:00 80 16 167/92 95 Nasal Cannula 3 07/20/16 11:45 80 16 150/83 93 Nasal Cannula 3 07/20/16 11:32 98.5 81 16 126/67 96 Nasal Cannula 3 I/O 07/20/16 07/20/16 07/20/16 07/21/16 07/21/16 07/21/16 07:00 15:00 23:00 07:00 15:00 23:00 Intake Total 1650 ml 480 ml 480 ml Output Total 105 ml Balance 1545 ml 480 ml 480 ml Intake Oral 0 ml 480 ml 480 ml IV Total 1150 ml Other 500 ml Output Urine Total 0 ml Emesis 100 ml Estimated Blood Loss 5 ml Other 0 ml # Voids 3 2 2 (Antoni Tristan MD R1) Result Diagram: 07/21/16 0655 07/21/16 0655 Imaging Last Impressions Foot X-Ray 07/20/16 0000 Signed Impressions: Service Date/Time: Wednesday, July 20, 2016 11:52 - CONCLUSION: 1. Postsurgical changes and old fractures as above. Estuardo Davis MD Chest X-Ray 07/19/16 0000 Signed Impressions: Service Date/Time: July 13:44 - CONCLUSION: 1. Subsegmental airspace disease at the lung bases. Differential diagnosis includes atelectasis and bronchopneumonia. No effusion. Molina Ferrell MD Shoulder X-Ray 07/17/16 0000 Signed Impressions: Service Date/Time: Sunday, July 17, 2016 17:46 - CONCLUSION: No acute process. Alphonse Boswell MD Tumor Localization 07/16/16 0000 Signed Impressions: Service Date/Time: Saturday, July 16, 2016 14:46 - CONCLUSION: 1. Abnormal air in both the soft tissues of the medial right foot and within the marrow cavity of the first metatarsal which has been amputated distally. There is intense white blood cell activity in the medial right foot and first metatarsal. The findings are characteristic of osteomyelitis of the entire remaining first metatarsal and adjacent cellulitis. 2. [id number] white blood cell activity is also present around a chronic healing fracture of the proximal second metatarsal. Molina Ferrell MD Objective Remarks Gen.: No acute distress Head: Normocephalic. Atraumatic. EENT: Pupils equal round and reactive to light. Nose without drainage. Airway intact. Cardiovascular: Regular rate and rhythm. No murmurs, rubs or gallops. Respiratory: Lungs clear to auscultation bilaterally. No wheezes or rhonchi. Abdomen: Soft, nontender, nondistended. No peritoneal signs. Musculoskeletal: No gross deformities. No edema. Surgical absence of right great toe. Wound on right foot dressed, dressing clean/dry/intact. Skin: No obvious rashes or erythema. Neuro: Sensory and motor grossly intact. Cranial nerves II through XII grossly intact. Psych: Appropriate mood and affect (Antoni Tristan MD R1) A/P Assessment and Plan 40 yo male with puncture wound right foot. Admitted for IV antibiotics and Patient went to OR on Saturday morning at 10:30 for excision of the first metatarsal. Podiatry discussed planned procedure with the patient. ID consultation appreciated. Discharge Planning Pending podiatry recommendations. Likely home on Saturday. PT recommends home with home health PT (Antoni Tristan MD R1) Attending Attestation Patient seen and examined. Case reviewed and discussed with the resident team. Agree with plan of care as discussed with me and documented in the resident note. (Astrid Mahoney MD) Problem List: (1) Diabetic infection of right foot Status: Acute Plan: Patient presented with diabetic foot infection, imaging concerning for osteomyelitis. -Podiatry consulted (Dr. Ramirez). Patient went to the OR on Saturday morning at 10:30 for excision of the first metatarsal. Likely discharge Saturday. Nonweightbearing right foot. -Tetanus vaccine given -ID consulted: -Cipro and cefepime (started 07/19) per ID recommendations: Plan to discharge patient on Cipro for at least 7 days -May switch antibiotics after surgical intervention -Pain control: Stopped Toradol because patient developing RICKEY; norco 1 tab PO pain 1-5; norco 2 tabs PO pain 6-10; morphine 2 mg breakthrough pain -Wound cultures grew four organisms: Group B beta strep, pansensitive (except for tetracycline) Escherichia coli, pansensitive pseudomonas, pansensitive staph aureus. Susceptibility noted in EMR. -WBC scan significant for osteomyelitis Abx history: -Vanc and zosyn (07/16 - 07/18) (2) Shoulder pain Status: Acute Plan: Patient with right shoulder pain on abduction. He believes it may be from the way that he sleeps. Shoulder x-ray normal. Дмитрий devine -Outpatient sports medicine referral [facility] topical cream (3) HTN (hypertension) Status: Acute Plan: Patient increasingly hypertensive throughout admission. Pain versus essential hypertension Lisinopril 10 mg by mouth daily stopped because of patient's RICKEY; patient should be continued on lisinopril as outpatient given he is diabetic. Amlodipine 5 mg by mouth daily Clonidine 0.1 mg by mouth when necessary for systolic blood pressure over 160 or diastolic blood pressure over 90 Hydralazine 10 mg by mouth daily every 8 hours when necessary for systolic blood pressure over 160 or diastolic blood pressure over 90 (4) Abnormal chest x-ray Status: Acute Plan: Chest x-ray concerning for atelectasis versus bronchopneumonia. Patient has been afebrile, without leukocytosis, without cough. -Continue to monitor for signs or symptoms of pneumonia -Patient already on antibiotics -Incentive spirometer (5) RICKEY (acute kidney injury) Status: Acute Plan: Slightly improved this morning. -Continue IV hydration -Stopped vancomycin and Toradol (6) Diabetes Status: Acute Plan: Glucose under better control with current regimen Increased Levemir to 10 units every 12 hours Sliding scale insulin Continue lisinopril as outpatient (7) FEN/PPX Status: Acute Plan: Fluids: Normal saline IV at 125 mL per hour Electrolytes: monitor and replace prn Nutrition: diabetic diet PPX: bilateral SCDs (Antoni Tristan MD R1) Problem Qualifiers (1) Diabetes: Qualified Code: E11.8 - Type 2 diabetes mellitus with complication, with long- term current use of insulin Antoni Tristan MD R1 Jul 21, 2016 10:45 Astrid Mahoney MD Jul 21, 2016 15:03
[2016-07-21] MEDS ORDERED: MENTHOL/METHYL SALICYLATE OINT 30 GM TUBE TOP PRN (12:00)
[2016-07-21] MEDS: hydrALAZINE HCL 10 MG TAB PO PRN (12:01)
[2016-07-21] MEDS: cloNIDine HCL 0.1 MG TAB PO PRN (16:25)
[2016-07-21] MEDS: amLODIPine BESYLATE 5 MG TAB PO SCH (16:25)
[2016-07-21] MEDS: ACETAMINOPHEN/HYDROcodone 325 MG/5 MG TAB PO PRN (18:15)
[2016-07-21] MEDS: ONDANSETRON HCL 4 MG/2 ML VIAL IVP PRN (18:16)
[2016-07-21] MEDS: DOCUSATE SODIUM 50 MG/SENNA 8.6 MG TAB PO SCH (20:53)
[2016-07-22] VITALS (7 sets, daily range): BP systolic 154–180; BP diastolic 90–100; PULSE 72–79; RESP 18–20; TEMP 96.1–98.5; O2SAT 93–96
[2016-07-22] MEDS: ACETAMINOPHEN/HYDROcodone 325 MG/5 MG TAB PO PRN ×3 (00:07→21:10)
[2016-07-22] MEDS: CEFEPIME INJ 2,000 MG in SODIUM CHLORIDE 0.9% INJ 100 ML IV SCH ×2 (05:06→17:25)
[2016-07-22] MEDS: INSULIN ASPART SUPPLEMENTAL SCALE SQ SCH ×4 (05:07→21:00)
[2016-07-22] MEDS: SODIUM CHLORIDE 0.9% FLUSH 5 ML FLUSH FLUSH SCH ×2 (09:00→21:00)
--- NOTE | 2016-07-22 09:29 | PD.POD ---
Subjective Podiatric Problems Diabetic male with peripheral neuropathy History of hallux amputation right foot "Puncture wound "right plantar first met area with abscess. 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 Patient is here from [place] doing [employer] jobs. Claims he was walking on the beach barefoot and stepped on a nail. He developed redness and swelling and drainage from the right foot. Radiograph showed some soft tissue are which is most likely from probing the area. ordered a [employer] labeled white blood cell scan which showed osteomyelitis of the first metatarsal. He is 2 days status post excision of the first metatarsal right foot with excision of puncture wound. Bone culture shows strep on preliminary C and S Past Med/Surg/Social History Past Medical History PFS Reviewed: Yes Endocrine: REPORTS HX OF: Diabetes mellitus Neurologic: REPORTS HX OF: Peripheral neuropathy Past Surgical History Musculoskeletal: REPORTS HX OF: Other musculoskeletal srg (right hallux amputation) Social History Smoking Status: Never Smoker Review of Systems Notes No changes in his 14 point review of systems exam from yesterday Objective Vital Signs Vital Signs Date Time Temp Pulse Resp B/P Pulse Ox O2 Delivery O2 Flow Rate FiO2 07/22/16 07:50 97.9 77 20 170/99 94 07/22/16 04:00 96.1 79 18 155/90 93 07/22/16 00:00 97.6 72 18 154/91 93 07/21/16 20:00 98.7 71 18 151/84 94 07/21/16 18:30 160/90 07/21/16 16:00 99.4 71 16 178/94 93 07/21/16 12:00 97.9 72 16 184/94 97 Coded Allergies: No Known Allergies (Unverified , 07/16/16) Medications and IVs Current Medications Diphtheria/ Tetanus/Acell Pertussis (Boostrix Inj) 0.5 ml ONCE ONCE IM Last administered on 07/16/16 09:33; Start 07/16/16 at 09:15; Stop 07/16/16 at 09:16; Status DC Acetaminophen 650 mg 650 mg ONCE ONCE PO Last administered on 07/16/16 10:23; Start 07/16/16 at 10:00; Stop 07/16/16 at 10:01; Status DC Vancomycin HCl 1000 mg/Sodium Chloride 250 ml @ 250 mls/hr ONCE ONCE IV Last administered on 07/16/16 10:24; Start 07/16/16 at 10:00; Stop 07/16/16 at 10:59; Status DC Piperacillin Sod/ Tazobactam Sod 100 ml @ 200 mls/hr ONCE ONCE IV Last administered on 07/16/16 10:00; Start 07/16/16 at 10:00; Stop 07/16/16 at 10:29; Status DC Sodium Chloride (NS 1000 ml Inj) 1,000 ml @ 100 mls/hr Q10H IV Last administered on 07/16/16 03:40; Start 07/16/16 at 12:00; Stop 07/17/16 at 10:13; Status DC IV Flush (NS Flush) 2 ml UNSCH PRN FLUSH FLUSH AFTER USING IV ACCESS; Start 07/16/16 at 11:30 IV Flush (NS Flush) 2 ml BID FLUSH Last administered on 07/20/16 21:00; Start 07/16/16 at 21:00 Acetaminophen (Tylenol) 650 mg Q4H PRN PO TEMP>100.4F,PAIN1-10,IRRITABLE; Start 07/16/16 at 11:30 Ondansetron HCl (Zofran Inj) 4 mg Q6H PRN IVP NAUSEA OR VOMITING Last administered on 07/21/16 18:16; Start 07/16/16 at 11:30 Naloxone HCl 0.4 mg 0.4 mg UNSCH PRN IV SEE LABEL COMMENTS; Start 07/16/16 at 11 :30 Piperacillin Sod/ Tazobactam Sod 50 ml @ 100 mls/hr Q6H IV Last administered on 07/18/16 12:20; Start 07/16/16 at 18:00; Stop 07/18/16 at 16:35; Status DC Pharmacy Profile Note 0 ml @ 0 mls/hr UNSCH OTHER ; Start 07/16/16 at 11:30; Stop 07/18/16 at 16:35; Status DC Vancomycin HCl/ Sodium Chloride (Vancomycin Inj/ NS 250 ml Inj) 262.5 ml @ 262.5 mls/ hr Q12H IV Last administered on 07/18/16 08:21; Start 07/16/16 at 21: 00; Stop 07/18/16 at 16:35; Status DC Miscellaneous Information SPECIFIC LAB TO BE VENU... ONCE ONCE XX Last administered on 07/18/16 08:21; Start 07/18/16 at 08:45; Stop 07/18/16 at 08:46; Status DC Dextrose (D50w (Vial) Inj) 25 ml UNSCH PRN IV PUSH HYPOGLYCEMIA-SEE COMMENTS; Start 07/16/16 at 12:45 Glucagon (Glucagon Inj) 1 mg UNSCH PRN OTHER HYPOGLYCEMIA-SEE COMMENTS; Start 07/16/16 at 12:45 Insulin Aspart (NovoLOG SUPPLEMENTAL SCALE) 1 ACHS SLIDING SCALE SQ Last administered on 07/21/16 12:01; Start 07/16/16 at 16:00 Insulin Detemir (Levemir Inj) 7 units Q12HR SQ Last administered on 07/17/16 09 :00; Start 07/16/16 at 21:00; Stop 07/17/16 at 13:38; Status DC Ketorolac Tromethamine (Toradol Inj) 30 mg Q6H PRN IVP PAIN SCALE 1 TO 5 Last administered on 07/16/16 15:48; Start 07/16/16 at 13:15; Stop 07/16/16 at 16:33; Status DC Acetaminophen/ Hydrocodone Bitart ([place] 5-325 Mg) 1 tab Q4H PRN PO PAIN SCALE 1 TO 5 Last administered on 07/16/16 15:43; Start 07/16/16 at 13:15 Acetaminophen/ Hydrocodone Bitart ([place] 5-325 Mg) 2 tab Q6H PRN PO PAIN SCALE 6 TO 10 Last administered on 07/22/16 06:32; Start 07/16/16 at 13:15 Morphine Sulfate (Morphine Inj) 2 mg Q3H PRN IV PUSH BREAKTHROUGH PAIN Last administered on 07/18/16 17:13; Start 07/16/16 at 13:15 Naloxone HCl (Narcan Inj) 0.4 mg UNSCH PRN IV SEE LABEL COMMENTS; Start at 13:15; Stop 07/16/16 at 13:24; Status DC Ketorolac Tromethamine (Toradol Inj) 30 mg Q6H IVP Last administered on 04:56; Start 07/16/16 at 22:00; Stop 07/21/16 at 21:59; Status DC Insulin Detemir (Levemir Inj) 10 units Q12HR SQ Last administered on 07/21/16 20:53; Start 07/17/16 at 21:00 Senna/Docusate Sodium 2 tab 2 tab HS PO Last administered on 07/21/16 20:53; Start 07/17/16 at 21:00 Cefepime HCl/ Sodium Chloride (Maxipime Inj/NS Inj) 100 ml @ 200 mls/hr Q12H IV Last administered on 07/22/16 05:06; Start 07/18/16 at 17:00 Ciprofloxacin 500 mg 500 mg Q12HR PO Last administered on 07/21/16 20:53; Start 07/18/16 at 21:00 Sodium Chloride 1,000 ml @ 999 mls/hr BOLUS ONCE IV Last administered on 12:48; Start 07/19/16 at 11:15; Stop 07/19/16 at 12:15; Status DC Sodium Chloride (NS 1000 ml Inj) 1,000 ml @ 125 mls/hr Q8H IV Last administered on 07/21/16 00:00; Start 07/19/16 at 12:00 Lisinopril (Prinivil) 10 mg DAILY PO Last administered on 07/19/16 13:23; Start 07/19/16 at 13:00; Stop 07/20/16 at 08:02; Status DC Clonidine (Catapres) 0.2 mg ONCE ONCE PO Last administered on 07/19/16 12:56; Start 07/19/16 at 13:00; Stop 07/19/16 at 13:01; Status DC Clonidine (Catapres) 0.1 mg Q6H PRN PO SBP>160, DBP>90 Last administered on 07/21 16:25; Start 07/19/16 at 16:00 Hydralazine HCl (Apresoline) 10 mg Q8HR PRN PO SBP>160, DBP>90 Last administered on 07/21/16 12:01; Start 07/19/16 at 16:00 Bupivacaine HCl (Marcaine Pf 0.5% Inj) 30 ml STK-MED ONCE .ROUTE Last administered on 07/20/16 10:51; Start 07/20/16 at 09:07; Stop 07/20/16 at 09:11; Status DC Famotidine (Pepcid Inj) 20 mg STK-MED ONCE .ROUTE Last administered on 10:05; Start 07/20/16 at 10:03; Stop 07/20/16 at 10:04; Status DC Metoclopramide HCl (Reglan Inj) 10 mg STK-MED ONCE .ROUTE Last administered on 07/20/16 10:07; Start 07/20/16 at 10:04; Stop 07/20/16 at 10:05; Status DC IV Flush (NS Flush) 2 ml UNSCH PRN IVF FLUSH AFTER USING IV ACCESS; Start at 11:30; Status UNV IV Flush (NS Flush) 2 ml BID IVF ; Start 07/20/16 at 21:00; Status UNV Miscellaneous Information (Post-op Orders (for Pharmacy)) STAT ONCE XX ; Start 07/20/16 at 11:30; Stop 07/20/16 at 11:50; Status DC Morphine Sulfate (Morphine Inj) 4 mg Q3H PRN IV Pain 6-10;if unable to take PO ; Start 07/20/16 at 11:30 Acetaminophen (Ofirmev Inj) 1,000 mg Q6H IV Last administered on 07/21/16 04:36 ; Start 07/20/16 at 12:00; Stop 07/21/16 at 06:01; Status DC Morphine Sulfate (Morphine Inj) 4 mg Q3H PRN IV BREAKTHROUGH PAIN; Start at 11:30 Oxycodone HCl (Roxicodone) 5 mg Q4H PRN PO PAIN SCALE 3 TO 5 Last administered on 07/20/16 22:55; Start 07/20/16 at 11:30 Naloxone HCl (Narcan Inj) 0.4 mg UNSCH PRN IV SEE LABEL COMMENTS; Start at 11:30 Midazolam HCl (Versed Inj) 2 mg STK-MED ONCE .ROUTE ; Start 07/20/16 at 11:40; Stop 07/20/16 at 11:41; Status DC Fentanyl Citrate (fentaNYL INJ) 250 mcg STK-MED ONCE .ROUTE ; Start 07/20/16 at 11:41; Stop 07/20/16 at 11:42; Status DC Miscellaneous Information ALL NURSING DEPARTME... UNSCH PRN XX SEE LABEL COMMENTS; Start 07/20/16 at 12:00; Stop 07/21/16 at 11:59; Status DC Menthol/Methyl Salicylate (Ugo Pena Oint) 1 applic UNSCH PRN TOP pain; Start 07/21/16 at 12:00 Amlodipine Besylate (Norvasc) 5 mg DAILY PO Last administered on 07/21/16t 16:25 ; Start 07/21/16 at 15:00 Other Results Laboratory Tests Test 07/21/16 06:55 White Blood Count 8.0 TH/MM3 Red Blood Count 3.77 MIL/MM3 Hemoglobin 10.8 GM/DL Hematocrit 31.3 % Mean Corpuscular Volume 83.2 FL Mean Corpuscular Hemoglobin 28.6 PG Mean Corpuscular Hemoglobin 34.4 % Concent Red Cell Distribution Width 12.3 % Platelet Count 526 TH/MM3 Mean Platelet Volume 7.7 FL Neutrophils (%) (Auto) 68.3 % Lymphocytes (%) (Auto) 20.7 % Monocytes (%) (Auto) 7.4 % Eosinophils (%) (Auto) 2.7 % Basophils (%) (Auto) 0.9 % Neutrophils # (Auto) 5.5 TH/MM3 Lymphocytes # (Auto) 1.7 TH/MM3 Monocytes # (Auto) 0.6 TH/MM3 Eosinophils # (Auto) 0.2 TH/MM3 Basophils # (Auto) 0.1 TH/MM3 CBC Comment DIFF FINAL Differential Comment Laboratory Tests Test 07/21/16 06:55 Sodium Level 141 MEQ/L Potassium Level 3.9 MEQ/L Chloride Level 107 MEQ/L Carbon Dioxide Level 28.0 MEQ/L Anion Gap 6 MEQ/L Blood Urea Nitrogen 11 MG/DL Creatinine 1.35 MG/DL Estimat Glomerular Filtration 59 ML/MIN Rate Random Glucose 193 MG/DL Calcium Level 8.6 MG/DL Microbiology Date/Time Procedure Status Source Growth 07/20/16 11:07 Gram Stain - Final Resulted Wound Other 07/20/16 11:07 Wound Culture - Preliminary Resulted Group B Beta Strep 07/20/16 11:07 Acid Fast Stain Worksheet Wound Other Pending 07/20/16 11:07 Mycobacterial Culture Worksheet Wound Other Pending 07/20/16 11:07 Fungal Smear - Final Resulted Wound Other NO FUNGAL ELEMENTS SEEN. 07/20/16 11:07 Fungal Culture Resulted Wound Other Pending Exam-Podiatry Constitutional General appearance: comfortable Nutritional status: normal Orientation: alert and oriented x3 Dermatological Exam Skin Temp - Right: Within Normal Limits Skin Texture - Right: Within Normal Limits Skin Elasticity - Right: Within Normal Limits Skin Tugor - Right: Within Normal Limits Hair Growth - Right: Within Normal Limits Pigmentation - Right: Within Normal Limits Skin Temp - Left: Within Normal Limits Skin Texture - Left: Within Normal Limits Skin Elasticity - Left: Within Normal Limits Skin Tugor - Left: Within Normal Limits Hair Growth - Left: Within Normal Limits Pigmentation - Left: Within Normal Limits Other: Scars, Surgery,Injury Surgical site is well coapted. Orchard are in place. No signs of infection or cellulitis. No drainage noted. Minimal edema present. Vascular/Lymphatic Exam R Dorsails Pedis: Palpable L Dorsails Pedis: Palpable R Posterior Tibial: Palpable L Posterior Tibial: Palpable Neurologic Exam Present on right: Tingling Present on left: Tingling Sensation: Light touch: Dimished Pinprick: Dimished Proprioception: Dimished Vibratory: Dimished Musculoskeletal Exam Details Previous amputation of the right hallux with resection of the first metatarsal Muscle Strength Dorsiflexion (Right): Normal Plantarflexion (Right): Normal Inversion (Right): Normal Eversion (Right): Normal Digital (Right): Normal Dorsiflexion (Left): Normal Plantarflexion (Left): Normal Inversion (Left): Normal Eversion (Left): Normal Digital (Left): Normal Foot Range of Motion Dorsiflexion (Right): Normal Plantarflexion (Right): Normal Inversion (Right): Normal Eversion (Right): Normal Digital (Right): Normal Dorsiflexion (Left): Normal Plantarflexion (Left): Normal Inversion (Left): Normal Eversion (Left): Normal Digital (Left): Normal Assessment & Plan Diagnosis: (1) Diabetic infection of right foot Status: Acute (2) Diabetes type 2, uncontrolled Status: Chronic (3) Osteomyelitis of foot, right, acute Status: Acute A/P PLAN: Dressing changed under aseptic conditions. Ordered postop shoe for protection. Patient may be discharged Saturday with home antibiotics according to infectious disease. Follow-up in my office in one week. Problem Qualifiers (1) Diabetes type 2, uncontrolled: Qualified Code: E11.42 - Uncontrolled type 2 diabetes mellitus with diabetic polyneuropathy, with long-term current use of insulin Himanshu Ramirez DPM Jul 22, 2016 09:29
[2016-07-22] MEDS: CIPROFLOXACIN 500 MG TAB PO SCH ×2 (09:52→21:09)
[2016-07-22] MEDS: cloNIDine HCL 0.1 MG TAB PO PRN ×2 (09:52→17:26)
[2016-07-22] MEDS: INSULIN DETEMIR 100 UNITS/ML VIAL SQ SCH ×2 (09:52→21:09)
[2016-07-22] MEDS: amLODIPine BESYLATE 5 MG TAB PO SCH (09:52)
[2016-07-22] MEDS: SODIUM CHLOR 0.9% 1000 ML INJ 1,000 ML IV SCH ×2 (10:07→22:51)
--- NOTE | 2016-07-22 12:07 | HHI.FPPN ---
Subjective Remarks Patient is doing well this morning. No chest pain, nausea, vomiting, diarrhea, shortness of breath. No fever, chills. (Haider Mahoney MD R2) Objective Vitals Vital Signs Date Time Temp Pulse Resp B/P Pulse Ox O2 Delivery O2 Flow Rate FiO2 07/22/16 07:50 97.9 77 20 170/99 94 07/22/16 04:00 96.1 79 18 155/90 93 07/22/16 00:00 97.6 72 18 154/91 93 07/21/16 20:00 98.7 71 18 151/84 94 07/21/16 18:30 160/90 07/21/16 16:00 99.4 71 16 178/94 93 07/21/16 12:00 97.9 72 16 184/94 97 I/O 07/21/16 07/21/16 07/21/16 07/22/16 07/22/16 07/22/16 07:00 15:00 23:00 07:00 15:00 23:00 Intake Total 480 ml 240 ml 3272 ml 2252 ml Balance 480 ml 240 ml 3272 ml 2252 ml Intake Oral 480 ml 240 ml 480 ml 480 ml IV Total 2792 ml 1772 ml # Voids 2 2 4 1 # Bowel Movements 1 (Haider Mahoney MD R2) Result Diagram: 07/21/1665407/21/16 06 Objective Remarks Gen.: No acute distress Head: Normocephalic. Atraumatic. EENT: Pupils equal round and reactive to light. Nose without drainage. Airway intact. Cardiovascular: Regular rate and rhythm. No murmurs, rubs or gallops. Respiratory: Lungs clear to auscultation bilaterally. No wheezes or rhonchi. Abdomen: Soft, nontender, nondistended. No peritoneal signs. Musculoskeletal: No gross deformities. No edema. Surgical absence of right great toe. Wound on right foot dressed, dressing clean/dry/intact. Skin: No obvious rashes or erythema. Neuro: Sensory and motor grossly intact. Cranial nerves II through XII grossly intact. Psych: Appropriate mood and affect (Haider Mahoney MD R2) A/P Assessment and Plan 40 yo male with puncture wound right foot. Infectious disease and podiatry consult. Postop day #2 resection of the first metatarsal with debridement wound right foot. Discharge Planning Pending podiatry recommendations. Likely home on Saturday. PT recommends home with home health PT (Haider Mahoney MD R2) Attending Attestation Patient seen and examined. Case reviewed and discussed with the resident team. Agree with plan of care as discussed with me and documented in the resident note. (Astrid Mahoney MD) Problem List: (1) Diabetic infection of right foot Status: Acute Plan: Patient presented with diabetic foot infection. Postop day #2 status post debridement -Podiatry consulted (Dr. Ramirez). Postop shoe for protection. Discharge Saturday with antibiotics according to infectious disease. Follow in one week -ID consulted: -Cipro and cefepime (started 07/19) per ID recommendations: Plan to discharge patient on Cipro for at least 7 days. -May switch antibiotics after surgical intervention pending -Pain control: Stopped Toradol because patient developing RICKEY; norco 1 tab PO pain 1-5; norco 2 tabs PO pain 6-10; morphine 2 mg breakthrough pain -Wound cultures grew four organisms: Group B beta strep, pansensitive (except for tetracycline) Escherichia coli, pansensitive pseudomonas, pansensitive staph aureus. Susceptibility noted in EMR. Abx history: -Vanc and zosyn (07/16 - 07/18) -Tetanus vaccine given (2) Shoulder pain Status: Acute Plan: Patient with right shoulder pain on abduction. He believes it may be from the way that he sleeps. Shoulder x-ray normal. Дмитрий devine -Outpatient sports medicine referral BenGay topical cream (3) HTN (hypertension) Status: Acute Plan: Patient increasingly hypertensive throughout admission. Pain versus essential hypertension Lisinopril 20 mg daily Amlodipine 10 mg by mouth daily Clonidine 0.1 mg by mouth when necessary for systolic blood pressure over 160 or diastolic blood pressure over 90 Hydralazine 10 mg by mouth daily every 8 hours when necessary for systolic blood pressure over 160 or diastolic blood pressure over 90 (4) Abnormal chest x-ray Status: Acute Plan: Chest x-ray concerning for atelectasis versus bronchopneumonia. Patient has been afebrile, without leukocytosis, without cough. -Continue to monitor for signs or symptoms of pneumonia -Patient already on antibiotics -Incentive spirometer (5) RICKEY (acute kidney injury) Status: Acute Plan: -Continue IV hydration -Stopped vancomycin and Toradol (6) Diabetes Status: Acute Plan: Glucose under better control with current regimen Levemir to 10 units every 12 hours Sliding scale insulin (7) FEN/PPX Status: Acute Plan: Fluids: Normal saline IV at 125 mL per hour Electrolytes: monitor and replace prn Nutrition: diabetic diet PPX: bilateral SCDs (Haider Mahoney MD R2) Problem Qualifiers (1) Diabetes: Qualified Code: E11.8 - Type 2 diabetes mellitus with complication, with long- term current use of insulin Haider Mahoney MD R2 Jul 22, 2016 12:07 Astrid Mahoney MD Jul 22, 2016 13:44
[2016-07-22] MEDS ORDERED: AMLO10 PO (12:09)
[2016-07-22] MEDS ORDERED: CIPR-9 PO (12:09)
[2016-07-22] MEDS ORDERED: LISI-515 PO (12:09)
--- NOTE | 2016-07-22 12:11 | HHI.FF ---
Face to Face Verification Diagnosis: (1) Osteomyelitis of foot, right, acute Physical Therapy Order: Evaluate and Treat, Improve ambulation, Strength and gait training Home Health Nursing Order: Medical education Wound care and dressing changes I have seen patient Barney Benton on 07/22/16. My clinical findings support the need for the requested home health care services because: Ltd mobility - disease progression Limited ability to care for self I certify that my clinical findings support that this patient is homebound because: Post-op weakness Unsteady gait/balance Haider Mahoney MD R2 Jul 22, 2016 12:11
--- NOTE | 2016-07-22 12:41 | HHI.FPPN ---
Addendum to progress note ADDENDUM Reason for addendum: Additonal documentation Additional information Medical off service note. 40-year-old diabetic with osteomyelitis in his right foot. He is postop day #2 debridement. Podiatry, infectious disease, physical therapy consult. Per podiatry, the patient can go home Saturday. ID recommends home with ciprofloxacin for at least 7 days. He will likely need pain medications on discharge. Other problems: -right shoulder pain: X-ray is normal. We recommended a sports medicine referral as an outpatient. -Hypertension: has been difficult to control. As of 07/22, increased amlodipine 10 mg daily, increase lisinopril 20 mg daily His discharge has been filled out for Saturday except for the official attending discharge. Physical therapy recommends PT at home. Home health [id number] completed. Haider Mahoney MD R2 Jul 22, 2016 12:40
[2016-07-22] MEDS: LISINOPRIL 20 MG TAB PO SCH (12:45)
[2016-07-22] MEDS: DOCUSATE SODIUM 50 MG/SENNA 8.6 MG TAB PO SCH (21:09)
[2016-07-22] MEDS: hydrALAZINE HCL 10 MG TAB PO PRN (23:01)
[2016-07-23] VITALS: BP 162/88; PULSE 75; RESP 17; TEMP 97.4; O2SAT 97
[2016-07-23 04:00] VITALS: BP 151/93; PULSE 71; RESP 18; TEMP 97.8; O2SAT 97
[2016-07-23] MEDS: CEFEPIME INJ 2,000 MG in SODIUM CHLORIDE 0.9% INJ 100 ML IV SCH (05:19)
[2016-07-23] MEDS: ACETAMINOPHEN/HYDROcodone 325 MG/5 MG TAB PO PRN (05:19)
[2016-07-23] MEDS: INSULIN ASPART SUPPLEMENTAL SCALE SQ SCH (05:33)
[2016-07-23 07:10] LABS: BASOPHIL # 0.1 TH/MM3 (0-0.2); EOSINOPHIL # 0.3 TH/MM3 (0-0.4); EOSINOPHIL % 3.3 % (0.0-4.0); HEMATOCRIT 32.3 % (39.0-51.0); HEMO FLAGS DIFF FINAL; LYMPH % 24.8 % (9.0-44.0); MEAN CELL VOLUME 82.5 FL (80.0-100.0); MEAN CORPUSCULAR HEMOGLOBIN 28.9 PG (27.0-34.0); MONO % 7.9 % (0.0-8.0); PLATELET COUNT 630 TH/MM3 (150-450); RED BLOOD COUNT 3.92 MIL/MM3 (4.50-5.90); RED CELL DISTRIBUTION WIDTH 12.6 % (11.6-17.2); WHITE BLOOD COUNT 7.9 TH/MM3 (4.0-11.0)
[2016-07-23 07:35] LABS: BICARBONATE 31.2 MEQ/L (21.0-32.0); POTASSIUM 3.4 MEQ/L (3.5-5.1)
[2016-07-23 08:00] VITALS: BP 173/112; PULSE 64; RESP 16; TEMP 95.9; O2SAT 97
[2016-07-23] MEDS: CIPROFLOXACIN 500 MG TAB PO SCH (09:28)
[2016-07-23] MEDS: INSULIN DETEMIR 100 UNITS/ML VIAL SQ SCH (09:28)
[2016-07-23] MEDS: LISINOPRIL 20 MG TAB PO SCH (09:29)
--- NOTE | 2016-07-23 10:16 | HHI.FPPN ---
Subjective Remarks No acute events overnight. Remains HTN to 150-180s/80-100s. Otherwise, vitals are stable. Remains afebrile. Patient reports continued R shoulder pain, but no pain in R foot. Denies fevers/chills, FAIR, SOB/CP, abdominal pain, nausea/ vomiting. Pt feels comfortable going home today. Plans to fly back to [place] tomorrow for 1 week, then will return to [place]. (Lucía Luis MD R1) Objective Vitals Vital Signs Date Time Temp Pulse Resp B/P Pulse Ox O2 Delivery O2 Flow Rate FiO2 07/23/16 08:00 95.9 64 16 173/112 97 07/23/16 04:00 97.8 71 18 151/93 97 07/23/16 00:00 97.4 75 17 162/88 97 07/22/16 20:00 97.8 73 18 165/97 96 07/22/16 15:45 98.5 73 20 180/100 93 07/22/16 15:00 98.5 73 20 180/100 93 07/22/16 11:30 97.8 73 20 161/94 95 I/O 07/22/16 07/22/16 07/22/16 07/23/16 07/23/16 07/23/16 07:00 15:00 23:00 07:00 15:00 23:00 Intake Total 2252 ml 240 ml 1844 ml 0 ml Balance 2252 ml 240 ml 1844 ml 0 ml Intake Oral 480 ml 240 ml 480 ml 0 ml IV Total 1772 ml 1364 ml # Voids 1 1 3 1 # Bowel Movements 0 0 0 (Lucía Luis MD R1) Result Diagram: 07/23/16 0606 07/23/16 0606 Imaging Last Impressions Foot X-Ray 07/20/16 0000 Signed Impressions: Service Date/Time: Wednesday, July 20, 2016 11:52 - CONCLUSION: 1. Postsurgical changes and old fractures as above. Estuardo Davis MD Chest X-Ray 07/19/16 0000 Signed Impressions: Service Date/Time: July 13:44 - CONCLUSION: 1. Subsegmental airspace disease at the lung bases. Differential diagnosis includes atelectasis and bronchopneumonia. No effusion. Molina Ferrell MD Shoulder X-Ray 07/17/16 0000 Signed Impressions: Service Date/Time: Sunday, July 17, 2016 17:46 - CONCLUSION: No acute process. Alphonse Boswell MD Tumor Localization 07/16/16 0000 Signed Impressions: Service Date/Time: Saturday, July 16, 2016 14:46 - CONCLUSION: 1. Abnormal air in both the soft tissues of the medial right foot and within the marrow cavity of the first metatarsal which has been amputated distally. There is intense white blood cell activity in the medial right foot and first metatarsal. The findings are characteristic of osteomyelitis of the entire remaining first metatarsal and adjacent cellulitis. 2. Siik-tl-mkhbareg white blood cell activity is also present around a chronic healing fracture of the proximal second metatarsal. Molina Ferrell MD Objective Remarks CONST: Adult male in NAD Head: Normocephalic. Atraumatic. EENT: Pupils equal round and reactive to light. Nose without drainage. Airway intact. Cardiovascular: Regular rate and rhythm. No murmurs, rubs or gallops. Respiratory: Lungs clear to auscultation bilaterally. No wheezes or rhonchi. Abdomen: Soft, nontender, nondistended. No peritoneal signs. Musculoskeletal: No gross deformities. No edema. Surgical absence of right great toe. Wound on right foot dressed, dressing clean/dry/intact. Skin: No obvious rashes or erythema. Neuro: Sensory and motor grossly intact. Cranial nerves II through XII grossly intact. Psych: Appropriate mood and affect (Lucía Luis MD R1) A/P Assessment and Plan 40 yo male with puncture wound right foot. Infectious disease and podiatry consult. Post op resection 07/20/15 of the first metatarsal with debridement wound right foot. Discharge Planning Anticipate discharge today. PT recommends home with home health PT (Lucía Luis MD R1) Attending Attestation Patient seen and examined. Case reviewed and discussed with the resident team. Agree with plan of care as discussed with me and documented in the resident note. (Astrid Mahoeny MD) Problem List: (1) Diabetic infection of right foot Status: Acute Plan: Patient presented with diabetic foot infection. Postop debridement -Podiatry consulted (Dr. Ramirez). Postop shoe for protection. Discharge with Cipro x7 days according to infectious disease. Follow up in one week -ID consulted: -Cipro and cefepime (started 07/19) per ID recommendations: Plan to discharge patient on Cipro for at least 7 days. -Pain control: Stopped Toradol because patient developing RICKEY; norco 1 tab PO pain 1-5; norco 2 tabs PO pain 6-10; morphine 2 mg breakthrough pain -Wound cultures grew four organisms: Group B beta strep, pansensitive (except for tetracycline) Escherichia coli, pansensitive pseudomonas, pansensitive staph aureus Abx history: -Vanc and zosyn (07/16 - 07/18) -Tetanus vaccine given (2) Shoulder pain Status: Acute Plan: Patient with right shoulder pain on abduction. He believes it may be from the way that he sleeps. Shoulder x-ray normal. Дмитрий devine -Outpatient sports medicine referral BenGay topical cream (3) HTN (hypertension) Status: Acute Plan: Patient increasingly hypertensive throughout admission. Pain versus essential hypertension Lisinopril 20 mg daily Amlodipine 10 mg by mouth daily -Follow up as outpatient for further titration of medications Clonidine 0.1 mg by mouth when necessary for systolic blood pressure over 160 or diastolic blood pressure over 90 Hydralazine 10 mg by mouth daily every 8 hours when necessary for systolic blood pressure over 160 or diastolic blood pressure over 90 (4) Abnormal chest x-ray Status: Acute Plan: Chest x-ray concerning for atelectasis versus bronchopneumonia. Patient has been afebrile, without leukocytosis, without cough. -Continue to monitor for signs or symptoms of pneumonia -Patient already on antibiotics -Incentive spirometer (5) RICKEY (acute kidney injury) Status: Acute Plan: - resolved (6) Diabetes Status: Acute Plan: Glucose under better control with current regimen Levemir to 10 units every 12 hours Sliding scale insulin -continue home meds at discharge (7) FEN/PPX Status: Acute Plan: Fluids: discontinue, per PO Electrolytes: monitor and replace prn Nutrition: diabetic diet PPX: bilateral SCDs SDW: Sheron Aguilar, MS4 (Lucía Luis MD R1) Problem Qualifiers (1) Shoulder pain: Qualified Code: M25.511 - Chronic right shoulder pain (2) HTN (hypertension): Qualified Code: I10 - Essential hypertension (3) Diabetes: Qualified Code: E11.8 - Type 2 diabetes mellitus with complication, with long- term current use of insulin Lucía Luis MD R1 Jul 23, 2016 10:16 Astrid Mahoney MD Jul 23, 2016 14:30
--- NOTE | 2016-07-23 11:03 | HHI.DS ---
Discharge Summary Admission Date Jul 16, 2016 at 10:11 Discharge Date: Jul 23, 2016 Admitting Diagnosis diabetic foot infection (1) Diabetic infection of right foot Diagnosis: Principal Plan: Patient presented with diabetic foot infection. Postop debridement -Podiatry consulted (Dr. Ramirez). Postop shoe for protection. Discharge with Cipro x7 days according to infectious disease. Follow up in one week -ID consulted: -Cipro and cefepime (started 07/19) per ID recommendations: Plan to discharge patient on Cipro for at least 7 days. -Pain control: Stopped Toradol because patient developing RICKEY; norco 1 tab PO pain 1-5; norco 2 tabs PO pain 6-10; morphine 2 mg breakthrough pain -Wound cultures grew four organisms: Group B beta strep, pansensitive (except for tetracycline) Escherichia coli, pansensitive pseudomonas, pansensitive staph aureus Abx history: -Vanc and zosyn (07/16 - 07/18) -Tetanus vaccine given (2) Shoulder pain Plan: Patient with right shoulder pain on abduction. He believes it may be from the way that he sleeps. Shoulder x-ray normal. Дмитрий devine -Outpatient sports medicine referral BenG topical cream (3) HTN (hypertension) Plan: Patient increasingly hypertensive throughout admission. Pain versus essential hypertension Lisinopril 20 mg daily Amlodipine 10 mg by mouth daily -Follow up as outpatient for further titration of medications Clonidine 0.1 mg by mouth when necessary for systolic blood pressure over 160 or diastolic blood pressure over 90 Hydralazine 10 mg by mouth daily every 8 hours when necessary for systolic blood pressure over 160 or diastolic blood pressure over 90 (4) Abnormal chest x-ray Plan: Chest x-ray concerning for atelectasis versus bronchopneumonia. Patient has been afebrile, without leukocytosis, without cough. -Continue to monitor for signs or symptoms of pneumonia -Patient already on antibiotics -Incentive spirometer (5) RICKEY (acute kidney injury) Plan: - resolved (6) Diabetes Plan: Glucose under better control with current regimen Levemir to 10 units every 12 hours Sliding scale insulin -continue home meds at discharge (7) FEN/PPX Plan: Fluids: discontinue, per PO Electrolytes: monitor and replace prn Nutrition: diabetic diet PPX: bilateral SCDs SDW: Sheron Aguilar, MS4 Consultants Podiatry, Physical Therapy, ID Procedures 07/20/16 Resection of first metatarsal with debridement of wound right foot Brief History This is a 40 year old male with diabetes who presents 5 days after stepping on a nail in his right foot. He states the nail went into his foot about 0.5 inches. Since that time, he has taken ibuprofen prn for pain control; he did not seek care after stepping on the nail. The ibuprofen helped relieve his pain. However, yesterday, his pain became a sharp 10/10 constant pain. Additionally, he started having fevers and chills subjectively. He noted brownish fluid coming out of the puncture wound. Additionally, he has been having increased swelling. No n/v/d, chest pain, shortness of breath. He has had DM for over 10 years. He takes 15 U bid of 70/30 insulin. He states his sugar normally runs b/w 125-180. He had his right great toe amputated a few years ago b/c he had a work accident which caused an infection in his toe. He has good feeling in his feet. CBC/BMP: 07/23/16 0606 07/23/16 0606 Significant Findings Laboratory Tests Test 07/21/16 07/23/16 06:55 06:06 Red Blood Count 3.77 MIL/MM3 3.92 MIL/MM3 (4.50-5.90) (4.50-5.90) Hemoglobin 10.8 GM/DL 11.3 GM/DL (13.0-17.0) (13.0-17.0) Hematocrit 31.3 % 32.3 % (39.0-51.0) (39.0-51.0) Platelet Count 526 TH/MM3 630 TH/MM3 (150-450) (150-450) Creatinine 1.35 MG/DL (0.60-1.30) Estimat Glomerular Filtration 59 ML/MIN (>89) 68 ML/MIN (>89) Rate Random Glucose 193 MG/DL 108 MG/DL (74-106) (74-106) Potassium Level 3.4 MEQ/L (3.5-5.1) Imaging Last Impressions Foot X-Ray 07/20/16 0000 Signed Impressions: Service Date/Time: Wednesday, July 20, 2016 11:52 - CONCLUSION: 1. Postsurgical changes and old fractures as above. Estuardo Davis MD Chest X-Ray 07/19/16 0000 Signed Impressions: Service Date/Time: July 13:44 - CONCLUSION: 1. Subsegmental airspace disease at the lung bases. Differential diagnosis includes atelectasis and bronchopneumonia. No effusion. Molina Ferrell MD Shoulder X-Ray 07/17/16 0000 Signed Impressions: Service Date/Time: Sunday, July 17, 2016 17:46 - CONCLUSION: No acute process. Alphonse Boswell MD Tumor Localization 07/16/16 0000 Signed Impressions: Service Date/Time: Saturday, July 16, 2016 14:46 - CONCLUSION: 1. Abnormal air in both the soft tissues of the medial right foot and within the marrow cavity of the first metatarsal which has been amputated distally. There is intense white blood cell activity in the medial right foot and first metatarsal. The findings are characteristic of osteomyelitis of the entire remaining first metatarsal and adjacent cellulitis. 2. Wrdv-uj-qcgmteqy white blood cell activity is also present around a chronic healing fracture of the proximal second metatarsal. Molina Ferrell MD PE at Discharge CONST: Adult male in NAD Head: Normocephalic. Atraumatic. EENT: Pupils equal round and reactive to light. Nose without drainage. Airway intact. Cardiovascular: Regular rate and rhythm. No murmurs, rubs or gallops. Respiratory: Lungs clear to auscultation bilaterally. No wheezes or rhonchi. Abdomen: Soft, nontender, nondistended. No peritoneal signs. Musculoskeletal: No gross deformities. No edema. Surgical absence of right great toe. Wound on right foot dressed, dressing clean/dry/intact. Skin: No obvious rashes or erythema. Neuro: Sensory and motor grossly intact. Cranial nerves II through XII grossly intact. Psych: Appropriate mood and affect Hospital Course 40-year-old diabetic male admitted for osteomyelitis in his right foot. Podiatry , infectious disease, physical therapy consulted. He underwent resection of first metatarsal with debridement of wound on 07/20/[address] Ramirez. ID recommends home with ciprofloxacin 500mg PO Q12H for at least 7 days. Physical therapy recommends PT at home. Other problems: -right shoulder pain: X-ray is normal. We recommended a sports medicine referral as an outpatient. -Hypertension: has been difficult to control. As of 07/22, increased amlodipine 10 mg daily, increase lisinopril 20 mg daily. Will require further management as an outpatient. Pt Condition on Discharge: Stable Discharge Disposition: Disch w/ Home Health Serv Discharge Instructions DIET: Follow Instructions for: Diabetic Diet Activities you can perform: Weight Bearing as Nathan Follow up Referrals: PCP Follow-up - 2 Weeks Podiatry - 1 Week with Himanshu Ramirez DPM New Medications: Amlodipine (Norvasc) 10 Mg Tab 10 MG PO DAILY #30 TAB Ciprofloxacin (Cipro) 500 Mg Tab 500 MG PO Q12HR #14 TAB Lisinopril (Lisinopril) 20 Mg Tab 20 MG PO DAILY #30 TAB Continued Medications: Insulin Aspart Protam-Asp 70-30 Inj (Novolog Mix 70-30 Inj) 1,000 Unit/10 Ml Vial 15 UNITS SQ BIDAC Blood Sugar Management #10 Ref 0 ML Chhaya Painter MD R2 Jul 23, 2016 11:03
[2016-08-06] MEDS ORDERED: CIPR-9 PO (09:08)
== END 2016-07-23 11:59 | disposition home health service (06) | DRG 628 ==
LOC: NEPE 08:25 → NEDA 10:11 → HOCA 13:53
PROVIDERS: ADMIT Family Medicine; ATTEND Family Medicine
PROC: 0QBN0ZZ Excision of Right Metatarsal, Open Approach (ICD-10-PCS; principal; 2016-07-20 10:31)
DX: E11.69 Type 2 diabetes mellitus with other specified complication (principal); J18.9 Pneumonia, unspecified organism; M86.171 Other acute osteomyelitis, right ankle and foot; N17.9 Acute kidney failure, unspecified; E11.628 Type 2 diabetes mellitus with other skin complications; L02.619 Cutaneous abscess of unspecified foot; J98.11 Atelectasis; S91.331A Puncture wound without foreign body, right foot, initial encounter; E11.42 Type 2 diabetes mellitus with diabetic polyneuropathy; E11.65 Type 2 diabetes mellitus with hyperglycemia; I10 Essential (primary) hypertension; M25.511 Pain in right shoulder; M54.2 Cervicalgia; B96.20 Unspecified Escherichia coli [E. coli] as the cause of diseases classified elsewhere; B96.5 Pseudomonas (aeruginosa) (mallei) (pseudomallei) as the cause of diseases classified elsewhere; B95.61 Methicillin susceptible Staphylococcus aureus infection as the cause of diseases classified elsewhere; B95.1 Streptococcus, group B, as the cause of diseases classified elsewhere; W45.0XXA Nail entering through skin, initial encounter; Y92.832 Beach as the place of occurrence of the external cause; Z79.4 Long term (current) use of insulin; Z83.3 Family history of diabetes mellitus; Z89.411 Acquired absence of right great toe
CPT/HCPCS: 71020; 73030; 73630; 78807; 78999; 80048; 80053; 80202; 81001; 82948; 85025; 85610; 85652; 85730; 86140; 86403; 87015; 87070; 87077; 87102; 87116; 87147; 87176; 87186; 87205; 87206; 88304; 88305; 88311; 90471; 90715; 93005; 94150; 96374; A9569; J0131; J0692; J1815; J1885; J2250; J2270; J2370; J2405; J2543; J2765; J3010; J3370; J7030; J7050; J7120; L3260

== ENCOUNTER 2016-08-05 12:54 | Emergency (ER) | payer SELFPAY ==
[~2016-08-05] VITALS: Ht 175.3 cm; Wt 85.0 kg
[~2016-08-05 12:54] MED LIST: AMLO10 PO; CIPR-9 PO; LISI-515 PO; NOVOLOGMXP SQ
[2016-08-05 12:58] VITALS: BP 118/74; PULSE 99; RESP 16; TEMP 98.2; O2SAT 97
--- NOTE | 2016-08-05 14:23 | PD ---
HPI Chief Complaint: Wound/Suture/Staple Re-Check Time Seen by Provider: 14:00 Travel History International Travel<30 days: No Contact w/Intl Traveler<30days: No Traveled to known affect area: No History of Present Illness HPI Patient is a 40-year-old diabetic male presenting with question regarding [place] to the right foot. On July 20 Dr. Ramirez performed a debridement of the first metatarsal due to infection. Patient was admitted for approximately one week and was on antibiotics. Cultures were pansensitive multi -bacterial and the patient was discharged on Cipro by mouth. He has finished this. He has not been seen in follow-up yet but has appointment tomorrow morning at 8:30. He states that he has been doing physical therapy and they have been having an wiggle his toes more than usual. 3 days ago he noticed that there was some dehiscence at the wound site. He denies any pain, redness or warmth but there is a small amount of occasional serosanguineous discharge. He denies any fever or chills. He denies any excessive, increase or new pain. He has been nonweightbearing on the foot. He states that his glucose is well controlled with his fastings usually in 130s 140 since medication adjustments were made. PFSH Past Medical History Cancer: No Cardiovascular Problems: No Diabetes: Yes Patient Takes Glucophage: No Diminished Hearing: No Endocrine: Yes Genitourinary: No Immune Disorder: No Musculoskeletal: No Neurologic: No Psychiatric: No Reproductive: No Respiratory: No Past Surgical History Other Surgery: Yes Social History Alcohol Use: Yes (OCCASIONAL) Tobacco Use: No Substance Use: No Allergies-Medications (Allergen,Severity, Reaction): Coded Allergies: No Known Allergies (Unverified , 08/05/16) Reported Meds & Prescriptions Reported Meds & Active Scripts Active Reported Novolog Mix 70-30 Inj (Insulin Aspart Prota 70%/Aspart 30%) 1,000 Unit/10 Ml Vial 15 Units SQ BIDAC Review of Systems Except as stated in HPI: all other systems reviewed are Neg Physical Exam Narrative GENERAL: Well-developed and well-nourished adult male in no acute distress. SKIN: Warm and dry. Good turgor without tenting. HEAD: Normocephalic and atraumatic. EYES: PERRL bilaterally, 5mm. EOMI bilaterally. No injection or icterus present. No proptosis. Lids without edema or erythema. ENT: Buccal mucosa pink and moist. Oropharynx free of erythema, tonsillar hypertrophy, masses, swelling, asymmetry and exudates. Uvula midline and airway patent. NECK: Supple, no midline tenderness, crepitus or step-offs. Trachea midline, no JVD. CARDIOVASCULAR: Regular rate and rhythm without murmurs, rubs, clicks or gallops. Dorsalis pedis and posterior tibial pulses 2+ bilaterally. No pedal edema. RESPIRATORY: Clear to auscultation bilaterally with symmetrical rise and fall, no distress or use of accessory muscles. LYMPH: Negative right popliteal and inguinal lymphadenopathy. MUSCULOSKELETAL: Patient has a surgically absent right great toe. There is a roughly 5 inch incision over the plantar medial surface of the right first extending over the dorsum of the foot with luis in place. There is an area approximately 1.5 cm in length near the distal aspect where there is some mild dehiscence. There is no active drainage. Patient shows me a bandage that has been on for 6 hours that has an area less than 1 cm2 that looks like dried serosanguineous drainage. There is no redness, warmth, induration, fluctuance or tenderness to palpation. The tissue is visible does appear to be healing and is granulated. No deep structures are visible and light pressure does not create significant gap in the wound. Patient freely moving all four extremities spontaneously. Extremities without clubbing or cyanosis. NEUROLOGIC: CN II-XII grossly intact. Awake and alert. Motor grossly within normal limits. Normal speech. PSYCHIATRIC: Appropriate mood and affect; insight and judgment normal. Data Data Last Documented VS Vital Signs Date Time Temp Pulse Resp B/P Pulse Ox O2 Delivery O2 Flow Rate FiO2 08/05/16 12:58 98.2 99 16 118/74 97 MDM Medical Decision Making Medical Screen Exam Complete: Yes Emergency Medical Condition: Yes Differential Diagnosis Wound dehiscence versus wound infection versus staple removal Narrative Course Patient's a 40-year-old male who had a debridement of a bone infection of the right first metatarsal performed on July [address] Ramirez. Patient has been doing well and missed appointment early this week in follow-up. He has been increasing his physical therapy and believes he excessive use of his toes and ankle have caused some dehiscence of the wound. Indeed on exam there is a 1.5 cm area of dehiscence distally. It is minimal and the wound is healing well otherwise. The tissue visible is granulated and shallow. There is no active discharge or bleeding. There is no sign of infection. He is afebrile, nontoxic and has no systemic complaints. No reports of increased pain or significant discharge. The wound was irrigated and maxorb II alginate dressing was applied and patient was instructed to keep this in place until he sees Dr. Ramirez tomorrow morning at 8:30 as he is currently scheduled. Given there is no sign of infection and this is not significantly open I do not believe there is utility in calling the surgeon at this time. Patient was instructed if is any further dehiscence or increased discharge or new symptoms to return immediately for reevaluation.See discharge paperwork for further instructions. The plan was discussed with the patient who acknowledged their understanding and agreement. Reinforced the follow-up with primary care is critically important. Patient instructed on emergent conditions that should prompt return to ED. Diagnosis Primary Impression: Wound dehiscence Patient Instructions: General Instructions Additional Instructions: Leave the wound dressing on until see Dr. Ramirez tomorrow morning at 8:30 No weightbearing on the right foot or excessive use of the ankle or toes until seen by Dr. Ramirez See Dr. Ramirez tomorrow morning at 8:30 AM as scheduled Return to the ED for any acute worsening of symptoms including increasing pain, increasing discharge, swelling, fever or if the wound opens further Disposition: 01 DISCHARGE HOME Condition: Stable Alphonse Lazo III Aug 05, 2016 14:23
[2016-08-06] MEDS ORDERED: CIPR-9 PO (09:08)
== END 2016-08-05 14:58 | disposition home or self-care (01) ==
LOC: NEPB 12:54
DX: T81.30XA Disruption of wound, unspecified, initial encounter (principal); E11.9 Type 2 diabetes mellitus without complications; Z98.890 Other specified postprocedural states
CPT/HCPCS: 99282